=== PATIENT | male | born 1980 | race Caucasian/White ===

== ENCOUNTER 2018-08-04 09:22 | Emergency (ER) | payer BC, SELFPAY ==
[2018-08-04 09:23] VITALS: BP 144/93; PULSE 90; RESP 16; TEMP 36.6; O2SAT 98; BMI 21.9
--- NOTE | 2018-08-04 09:41 | ED.DCSUM_ITS ---
History of Present Illness Chief Complaint: Dizziness Informant: Patient Onset: Month(s) - 1+ Context: Sudden Onset - w/ position changes Timing: Intermittent Quality: spinning, off-balance Location: head Current Severity: Mild Maximum Severity: Moderate Worsened by: getting out of bed. turning head. Relieved by: remaining still. Associated Symptoms: uri sx off and on 1-2 mos Narrative: States he goes to the counseling center but has no other doctor. They used to prescribe him medication for ADHD and anxiety but he states they stopped about a month and a half ago. He now takes no medications. He is here for the dizziness, he went over to the [facility] where he does not have a PCP so they directed him to the emergency department for his symptoms today. He has had no head injuries. He denies any numbness or tingling in his extremities. Symptoms are worse in the mornings when he gets out of bed. He does not seem to have the dizziness until he stands up. His nausea and vomiting are always associated with the dizziness. - Past Medical History (1) ADHD Status: Chronic (2) Anxiety Status: Chronic Past Medical History - Allergies and Home Meds Allergies/Adverse Reactions: Allergies No Known Allergies Allergy (Verified 08/04/18 09:22) Primary Care Physician: Care Physician,No Primary [Primary Care Provider] - Smoking Status: Current every day smoker Review of Systems General: Denies: Chills, Fever, Sweats Eyes: Denies: Visual changes - bilaterally, Diplopia ENT: Reports: Left ear pain - vibration-feeling, not pain/earache, Rhinorrhea, - - teeth hurt. Denies: Right ear pain, Sore throat Cardiovascular: Denies: Chest pain, Palpitations Respiratory: Reports: Cough. Denies: Dyspnea, Sputum Gastrointestinal: Reports: Nausea, Vomiting, Diarrhea. Denies: Abdominal pain, Melena, Hematochezia Genitourinary: Denies: Dysuria, Hematuria, Frequency Musculoskeletal: Denies: Back pain, Extremity Pain Skin: Denies: Rash, Wounds Neurological: Reports: - - dizzy/vertigo. Denies: Headache, Weakness, Parasthesia Physical Exam Vital Signs/Narrative: Vital Signs Temp Pulse Resp BP Pulse Ox 08/04/18 09:23 98 F 90 16 144/93 H 98 Inital Vital Signs reviewed: Yes General: Well nourished, Well developed, No Acute Distress Head: Normocephalic, Atraumatic Eyes: Perrl, EOMI ENT: Moist mucous membranes, No rhinorrhea, - - TM's occluded by cerumen bilat. no discharge. no pain w/ pinna/tragus manipulation bilat. Neck: Supple, Nontender Cardiovascular: Regular rate, Regular rhythm, No murmurs Respiratory: No distress, CTA bilaterally, Chest nontender Abdomen: Soft, Nontender, Nondistended, Normal bowel sounds Extremities: Nontender, No edema Skin: Normal color, No rash, No Trauma Neurological: Alert, Oriented x3, Cranial nerves II-XII grossly intact, Normal Strength, Normal Sensation, Normal Gait, - - Normal FTN and HTS bilat. Normal Romberg. Psychological: Normal affect, Normal Mood Diagnostic/Tx/Re-eval - Medical Decision Making Consistent with peripheral vertigo, with his recent URI symptoms off and on, it may be a reactive acoustic neuronitis, or he may have BPPV. Supportive care advised for now and primary care/ENT follow-up. We will give him meclizine and a prescription, we discussed making slow deliberate position changes, keeping his eyes open, looking at stationary targets when symptomatic. He is comfortable with this plan. ED Disposition - Plan for ED Patient: Disposition: Home or Assisted Living Diagnosis: Other peripheral vertigo, unspecified ear, Impacted cerumen of both ears Instructions: ED Vertigo Unspecified, ED Cerumen Impaction, Home Care Prescriptions: Meclizine HCl 25 mg PO Q8H PRN #16 tablet PRN Reason: Vertigo Referrals: Carlos Avitia MD [STAFF PHYSICIAN] - Ronald Mccoy MD [STAFF PHYSICIAN] - 1 Week if not improving
[2018-08-04] MEDS: Meclizine HCl 25 MG Tablet PO (09:59)
== END 2018-08-04 10:00 | disposition home or self-care (01) ==
LOC: ED 09:51
PROVIDERS: Emergency Provider Emergency Medicine
DX: H81.399 Other peripheral vertigo, unspecified ear (principal); H61.23 Impacted cerumen, bilateral; F17.200 Nicotine dependence, unspecified, uncomplicated; F41.9 Anxiety disorder, unspecified; F90.9 Attention-deficit hyperactivity disorder, unspecified type
CPT/HCPCS: 99283

== ENCOUNTER → 2022-11-03 | Outpatient (CLI) | payer BC, SELFPAY ==
[2022-11-03 08:09] LABS: Absolute Lymphocyte Count 2.43 X10^3/uL (0.83-4.51); Absolute Neutrophil Count 5.8 X10^3/uL (2.0-7.7); Basophil# 0.07 X10^3/uL; Basophil% 0.7 % (0-1); Eosinophil# 0.17 X10^3/uL; Eosinophils% 1.8 % (0-5); Hematocrit 48.2 % (40-54); Hemoglobin 15.6 g/dL (13.0-16.5); Lymphocyte # 2.43 X10^3/ul (0.83-4.51); Lymphocyte % 25.7 % (19-41); Mean Corp Hgb Conc 32.4 g/dL (32-36); Mean Corpuscular Hgb 31.9 pg (27.0-32.0); Mean Corpuscular Volume 98.6 fL (80-94); Mean Platelet Vol. 9.9 fl (6.2-12.0); Monocyte# 0.99 X10^3/uL; Monocyte% 10.5 % (0-10); NRBC Flagged by Analyzer 0 % (0-5); Neutrophil # 5.77 X10^3/uL (2.7-7.7); Platelet Count 310 K/mm3 (150-450); RBC Distribution Width CV 12.4 % (11.6-14.6); RBC Distribution Width SD 45.1 fl (35.1-43.9); Red Blood Count 4.89 M/mm3 (4.6-6.2); White Blood Count 9.5 K/mm3 (4.4-11.0)
[2022-11-03 08:41] LABS: ALB/GLOB Ratio 0.9 RATIO (0.9-2.4); AST(SGOT) 22 U/L (15-37); Alanine Aminotransfer ALT/SGPT 37 U/L (16-61); Albumin, Serum 3.7 g/dL (3.2-5.0); Alkaline Phosphatase 65 U/L (45-117); Anion Gap 4 (5-15); BUN 14 mg/dL (7-18); BUN/Creat Ratio 14.3 RATIO (10-20); Calcium,Total 9.3 mg/dL (8.5-10.1); Chloride 105 mmol/L (98-107); Cholesterol 257 mg/dL (200); Creatinine, Serum 0.98 mg/dL (0.70-1.30); EST Glomerular Filtration Rate 89 mL/min (>60); Est Glom Filt Rate - Afr Amer 107 mL/min (>60); Globulin 3.9 g/dL (2.2-4.2); Glucose 104 mg/dL (74-106); High Density Lipoprotein 59 mg/dL; Potassium 4.8 mmol/L (3.5-5.1); Protein, Total 7.6 g/dL (6.4-8.2); Sodium Level 137 mmol/L (136-145); Thyroid Stim Hormone (TSH) 2.25 uIU/mL (0.358-3.74); Triglycerides 177 mg/dL; Very Low Density Lipoprotein 35 mg/dL (5-40)
[2022-11-05 15:08] LABS: Endomysial Antibody IgA Negative (Negative); Immunoglobulin A 283 mg/dL (90-386); t-Transglutaminase IgA <2 U/mL (0-3)
== END | disposition home or self-care (01) ==
LOC: LAB 07:40
PROVIDERS: PCP Internal Medicine; Referring Provider Internal Medicine; Visit Provider Internal Medicine
DX: R10.9 Unspecified abdominal pain (principal); F32.1 Major depressive disorder, single episode, moderate; K43.9 Ventral hernia without obstruction or gangrene; F41.9 Anxiety disorder, unspecified; G89.29 Other chronic pain; Z13.6 Encounter for screening for cardiovascular disorders
CPT/HCPCS: 36415; 80050; 80053; 80061; 82306; 82784; 83516; 84443; 85025; 86255

== ENCOUNTER → 2023-02-16 | Outpatient (CLI) | payer BC, SELFPAY ==
[2023-02-16 09:04] LABS: ALB/GLOB Ratio 1.1 RATIO (0.9-2.4); AST(SGOT) 23 U/L (15-37); Alanine Aminotransfer ALT/SGPT 43 U/L (16-61); Albumin, Serum 3.8 g/dL (3.2-5.0); Alkaline Phosphatase 70 U/L (45-117); Anion Gap 4 (5-15); BUN 11 mg/dL (7-18); BUN/Creat Ratio 12.2 RATIO (10-20); Calcium,Total 9.3 mg/dL (8.5-10.1); Chloride 106 mmol/L (98-107); Cholesterol 159 mg/dL (200); EST Glomerular Filtration Rate 97 mL/min (>60); Est Glom Filt Rate - Afr Amer 118 mL/min (>60); Globulin 3.4 g/dL (2.2-4.2); Glucose 105 mg/dL (74-106); High Density Lipoprotein 58 mg/dL; Potassium 4.6 mmol/L (3.5-5.1); Protein, Total 7.2 g/dL (6.4-8.2); Sodium Level 139 mmol/L (136-145); Triglycerides 100 mg/dL; Very Low Density Lipoprotein 20 mg/dL (5-40)
== END | disposition home or self-care (01) ==
LOC: LAB 07:44
PROVIDERS: PCP Internal Medicine; Visit Provider Internal Medicine
DX: I10 Essential (primary) hypertension (principal); E78.2 Mixed hyperlipidemia
CPT/HCPCS: 36415; 80053; 80061

== ENCOUNTER → 2023-08-21 | Outpatient (CLI) | payer BC, SELFPAY ==
[2023-08-21 12:13] LABS: Absolute Lymphocyte Count 1.96 X10^3/uL (0.83-4.51); Absolute Neutrophil Count 5.5 X10^3/uL (2.0-7.7); Basophil# 0.05 X10^3/uL; Basophil% 0.6 % (0-1); Eosinophil# 0.04 X10^3/uL; Eosinophils% 0.5 % (0-5); Hematocrit 42.9 % (40-54); Lymphocyte # 1.96 X10^3/ul (0.83-4.51); Lymphocyte % 23.6 % (19-41); Mean Corp Hgb Conc 32.6 g/dL (32-36); Mean Corpuscular Hgb 31.8 pg (27.0-32.0); Mean Corpuscular Volume 97.5 fL (80-94); Mean Platelet Vol. 10.4 fl (6.2-12.0); Monocyte# 0.74 X10^3/uL; Monocyte% 8.9 % (0-10); NRBC Flagged by Analyzer 0 % (0-5); Neutrophil # 5.48 X10^3/uL (2.7-7.7); Neutrophil % 66.2 % (47-70); Platelet Count 322 K/mm3 (150-450); RBC Distribution Width CV 12.6 % (11.6-14.6); White Blood Count 8.3 K/mm3 (4.4-11.0)
[2023-08-21 12:31] LABS: Vitamin D,25 Hydroxy 31.6 ng/mL
[2023-08-21 12:48] LABS: AST(SGOT) 23 U/L (15-37); Alanine Aminotransfer ALT/SGPT 34 U/L (16-61); Albumin, Serum 3.9 g/dL (3.2-5.0); Alkaline Phosphatase 67 U/L (45-117); Anion Gap 4 (5-15); BUN 12 mg/dL (7-18); BUN/Creat Ratio 12.4 RATIO (10-20); Calcium,Total 9.1 mg/dL (8.5-10.1); Chloride 107 mmol/L (98-107); Cholesterol 213 mg/dL (200); Creatinine, Serum 0.97 mg/dL (0.70-1.30); EST Glomerular Filtration Rate 90 mL/min (>60); Est Glom Filt Rate - Afr Amer 109 mL/min (>60); Globulin 3.8 g/dL (2.2-4.2); Glucose 95 mg/dL (74-106); High Density Lipoprotein 63 mg/dL; Potassium 4.2 mmol/L (3.5-5.1); Protein, Total 7.7 g/dL (6.4-8.2); Sodium Level 138 mmol/L (136-145); Thyroid Stim Hormone (TSH) 1.73 uIU/mL (0.358-3.74); Triglycerides 138 mg/dL; Very Low Density Lipoprotein 28 mg/dL (5-40)
== END | disposition home or self-care (01) ==
LOC: BIMLAB 08:47
PROVIDERS: PCP Internal Medicine; Referring Provider Internal Medicine; Visit Provider Internal Medicine
DX: F41.9 Anxiety disorder, unspecified (principal); F32.1 Major depressive disorder, single episode, moderate; R00.2 Palpitations; E78.2 Mixed hyperlipidemia
CPT/HCPCS: 36415; 80053; 80061; 82306; 84443; 85025

== ENCOUNTER 2023-11-01 06:22 | Day surgery (SDC) | payer BC, SELFPAY ==
--- NOTE | 2023-11-01 | GASB_PTH ---
PATIENT: ELIZABETH RACHEL LOC: EN U#:[id number] AGE/SX: 43/M ROOM: RE11/01/[address]: Dr. Ant Erwin MD : 1980 BED: DIS: 11/01/2023 SPEC #: [id number] RECD: 11/01/23 14:07 STATUS: MARILU GENE #: [id number] LENNIE: 11/01/23 00:[address]: Ant Erwin DEPT: SURGICAL PATHOLOGY RECD BY: Sebas Green ENTERED: 11/04/23 09:02 SP TYPE: Gastric Bx OTHR DR: Dr. Shana Rios MD Tissues: A - Gastric mucous membrane B - Duodenum, NOS C - Gastric fundus D - Gastric mucous membrane E - Esophageal mucous membrane F - Ascending colon G - Ascending colon H - Transverse colon I - Descending colon J - Sigmoid colon biopsy K - Rectum, NOS L - Sigmoid colon biopsy Procedures: Special Stain Group I Surgery Specimen Level IV Alcian Blue/PAS (control) HEADER OPERATION: Colonoscopy, EGD biopsy PRE-OP DIAGNOSIS: GERD, nausea/vomiting, chronic abdominal pain, diarrhea TISSUE SUBMITTED: A- Gastric antrum, B-Duodenal bulb biopsy, C- Fundal mucosal biopsy, D- Gastroesophageal junction biopsy, E- Mid esophageal plaque biopsy, F- Ascending colon polyp biopsy, G- Ascending colon mucosal biopsy, H- Transverse colon mucosa biopsy, I- Descending colon mucosal biopsy, J- Sigmoid colon mucosa biopsy, K- Rectal mucosal biopsy, L- Sigmoid colon polyp biopsy MICROSCOPIC DIAGNOSIS A. Gastric antrum, biopsy: Mild gastritis. See microscopic description and comment. B. Duodenal bulb, biopsy: Superficial fragments of duodenal mucosa with focal gastric metaplasia. C. Fundal mucosa, biopsy: Minimal gastritis. See microscopic description. D. Gastroesophageal junction, biopsy: A fragment of gastroesophageal mucosa with extensive intestinal metaplasia (goblet cell metaplasia), consistent with Brothers's esophagus. Chronic inflammation. Negative for dysplasia. See comment. E. Mid esophageal plaque, biopsy: Fragments of benign squamous epithelium. F. Ascending colon polyp, biopsy: A fragment of colonic mucosa, no pathologic diagnosis. G. Ascending colon mucosa, biopsy: Fragments of colonic mucosa, no pathologic diagnosis. I. Descending colon mucosa, biopsy: A fragment of colonic mucosa, no pathologic diagnosis. J. Sigmoid colon mucosa, biopsy: A fragment of colonic mucosa, no pathologic diagnosis. K. Rectal mucosa, biopsy: Fragments of colonic mucosa, no pathologic diagnosis. L. Sigmoid colon polyp, biopsy: Fragments of hyperplastic polyp. SJ/mr 11/05/2023 COMMENT A. The results of immunohistochemistry for Helicobacter pylori will be reported separately ([id number]). D. Alcian blue/PAS stain with matched control is used in the evaluation of the specimen. Immunohistochemistry ([id number]) for P53 and Ki-67 will be performed and results will be reported separately. MICROSCOPIC DESCRIPTION Slides are reviewed. A. The specimen shows fragments of gastric mucosa with chronic inflammatory cell infiltrates in the lamina propria consisting of lymphocytes and plasma cells, consistent with mild chronic gastritis. C. The specimen shows fragments of gastric mucosa with chronic inflammatory cell infiltrates in the lamina propria consisting of lymphocytes and plasma cells, consistent with minimal chronic gastritis. GROSS DESCRIPTION A. Received in fixative is one container labeled with the patient's name and designated Gastric antrum biopsy. The specimen consists of two irregular fragments of light muir soft tissue that in aggregate measure 0.6 x 0.2 x 0.1 cm. The specimen is totally submitted in one cassette. B. Received in fixative is one container labeled with the patient's name and designated Duodenal bulb biopsy. The specimen consists of multiple irregular fragments of light muir soft tissue that in aggregate measure 0.3 x 0.2 x 0.1 cm. The specimen is totally submitted in one cassette. C. Received in fixative is one container labeled with the patient's name and designated Fundal mucosa biopsy. The specimen consists of multiple irregular fragments of light muir soft tissue that in aggregate measure 1.2 x 0.3 x 0.1 cm. The specimen is totally submitted in one cassette. D. Received in fixative is one container labeled with the patient's name and designated GE junction biopsy. The specimen consists of one irregular fragment of light muir soft tissue that measures 0.3 x 0.3 x 0.1 cm. The specimen is totally submitted in one cassette. E. Received in fixative is one container labeled with the patient's name and designated Mid esophageal plaque biopsy. The specimen consists of two irregular fragments of light muir soft tissue that measuring in aggregate 0.5 x 0.3 x 0.1 cm. The specimen is totally submitted in one cassette. F. Received in fixative is one container labeled with the patient's name and designated Ascending colon polyp biopsy. The specimen consists of one irregular fragment of light muir soft tissue that measures 0.4 x 0.2 x 0.1 cm. The specimen is totally submitted in one cassette. G. Received in fixative is one container labeled with the patient's name and designated Ascending colon mucosa biopsy. The specimen consists of two irregular fragments of light muir soft tissue that measuring in aggregate 0.8 x 0.2 x 0.1 cm. The specimen is totally submitted in one cassette. H. Received in fixative is one container labeled with the patient's name and designated Transverse colon mucosal biopsy. The specimen consists of one irregular fragment of light muir soft tissue that measures 1.0 x 0.2 x 0.1 cm. The specimen is totally submitted in one cassette. I. Received in fixative is one container labeled with the patient's name and designated Descending colon mucosa biopsy. The specimen consists of one irregular fragment of light muir soft tissue that measures 0.6 x 0.2 x 0.1 cm. The specimen is totally submitted in one cassette. J. Received in fixative is one container labeled with the patient's name and designated Sigmoid colon mucosa biopsy. The specimen consists of one irregular fragment of light muir soft tissue that measures 0.4 x 0.2 x 0.1 cm. The specimen is totally submitted in one cassette. K. Received in fixative is one container labeled with the patient's name and designated Rectal mucosa biopsy. The specimen consists of two irregular fragments of light muir soft tissue that in aggregate measure 0.6 x 0.3 x 0.1 cm. The specimen is totally submitted in one cassette. L. Received in fixative is one container labeled with the patient's name and designated Sigmoid colon polyp biopsy. The specimen consists of multiple irregular fragments of light muir soft tissue that in aggregate measure 0.6 x 0.2 x 0.1 cm. The specimen is totally submitted in one cassette. SJ/mr 11/04/2023 TC:3 CPT:29477f79,17905
--- NOTE | 2023-11-01 06:50 | PRE.ANES_ITS ---
ASA Classification* ASA Classification ASA Classification: 2 Assessment & Plan Anesthesia* Anesthesia Assessment Anesthesia Assessment: Discussed sedation and/or anesthesia options, risks, benefits, and alternatives with patient/parents/legal guardian/POA. Questions invited. The patient/parents/legal guardian/POA seems to understand and agrees to proceed with anesthesia plan. Reviewed the physical assessment, medical history, allergy history and patient home medications list prior to surgery/procedure/anesthetic and documented any changes. Performed airway and anesthesia risk assessments. Anesthesia Type Anesthesia Type: MAC Pre-Assessment Diagnosis/Proposed Procedure Planned Operative Procedure(s): EGD/CSCOPE Anesthesia History Anesthesia History - sales associate: Anesthesia History - sales associate Hx Hospitalization No 10/28/23 11:07 Any Problems With Anesthesia No 10/28/23 11:07 Cholinesterase deficiency No 10/28/23 11:07 You/Your Family Experience No 10/28/23 11:07 fever (hyperthermia) with Relationship Recent Exposure to Contagious Disease Does patient have nerve No 10/28/23 11:07 stimulator Patient instructed to have device shut off --Does patient have Pacemaker or ICD? When Was Last Pacemaker Check QUESTION #4 FULL TEXT: You/Your Family Experience fever (hyperthermia) with Anesthesia Last Oral Intake Last Oral intake: Last Oral Intake NPO since Meds taken in AM with sips of water? Meds patient instructed to take am of surgery PONV PONV - sales associate: PONV - sales associate Female No 10/28/23 11:07 HX of Motion Sickness Yes 10/28/23 11:07 HX of N/V After Surgery No 10/28/23 11:07 Non-Smoker Yes 10/28/23 11:07 Duration of Surgery greater No 10/28/23 11:07 than 60 minutes Number of Risk Factors 2 10/28/23 11:07 PONV Score Moderate Risk 10/28/23 11:07 Height & Weight Height & Weight: Anesthesia: Height & Weight Height 6 ft 10/30/23 14:50 Respiratory Assessment Respiratory Assessment - sales associate: Respiratory Tract Infection Hx - sales associate Hx Respiratory Tract Infection No 10/28/23 11:07 STOP Sleep Apnea STOP Sleep Apnea - sales associate: STOP Sleep Apnea - sales associate Hx Hypertension No 10/28/23 11:07 Hx Sleep Apnea No 10/28/23 11:07 CPAP No 10/28/23 11:07 BIPAP Do you snore loudly (louder Yes 10/28/23 11:07 than talking or can be heard Do you often feel tired/ Yes 10/28/23 11:07 fatigued/ sleepy during daytime? Has anyone observed you stop Yes 10/28/23 11:07 breathing during sleep? STOP Results Positive 10/28/23 11:07 QUESTION #5 FULL TEXT : Do you snore loudly (louder than talking or can be heard through closed doors)? 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 Specify any problems Hx of Preganancy in last 3 N/A 10/28/23 11:07 Months Nurse Filling Out Transfusion DSCHRIBER 10/28/23 11:07 & Questions: Date: 10/28/23 10/28/23 11:07 Time: 11:09 10/28/23 11:07 Patient unable to answer at this time (ie. confused, unrespo /Reproduction History /Reproductive History - sales associate: /Reproductive Hx- sales associate Hx Now No 10/28/23 11:07 Gestational Age (in weeks): EDC: Hx Hx Para Hx Section SAB No 10/28/23 11:07 Active Medications Active Medications: Current Medications Generic Name Dose Route Start Last Admin Trade Name Freq PRN Reason Stop Dose Admin Lactated Ringer's 1,000 mls @ 15 mls/hr 11/01/23 06:45 IV .Q48H BRENDA Anesthesia Focused Assessment* Airway Assessment Mouth opens: >3 cm Mallampati Score: II Focused Labs Anesthesia Preop lab: CBC WBC 8.3 K/mm3 (4.4-11.0) 08/21/23 08:47 RBC 4.40 M/mm3 (4.6-6.2) L 08/21/23 08:47 Hgb 14.0 g/dL (13.0-16.5) 08/21/23 08:47 Hct 42.9 % (40-54) 08/21/23 08:47 Plt Count 322 K/mm3 (150-450) 08/21/23 08:47 CHEMISTRY Potassium 4.2 mmol/L (3.5-5.1) 08/21/23 08:47 Sodium 138 mmol/L (136-145) 08/21/23 08:47 BUN 12 mg/dL (7-18) 08/21/23 08:47 Creatinine 0.97 mg/dL (0.70-1.30) 08/21/23 08:47 Glucose 95 mg/dL (74-106) 08/21/23 08:47 TSH 1.73 uIU/mL (0.358-3.74) 08/21/23 08:47 COAG Review of Systems (Anesthesia) ROS Narrative System reviewed and no additional complaints, except as documented. [facility] Medical History Anxiety Marijuana use Dietary restriction History of ulceration Gastric reflux Former smoker History of pain when walking Chest pain Alcohol dependence with unspecified alcohol-induced disorder Intermittent palpitations Abnormal Holter monitor finding Depression Abdominal pain Ventral hernia GERD (gastroesophageal reflux disease) Mixed hyperlipidemia Essential hypertension Anxiety ADHD Home Medications ?Medication ?Instructions ?Recorded ?Last Taken ?Type FLAX SEED 1,000 mg PO QHS 11/12/22 Unknown History coenzyme [id number] E 100 mg-100 1 cap PO DAILY 09/23/23 Unknown History unit capsule omega-3s 360 ti-bgz-wwz-fish oil 1 cap PO QHS 09/23/23 Unknown History 1,200 mg-D3 1,000 unit capsule (Fish Oil-Vit D3) aripiprazole 2 mg tablet 2 mg PO QHS #90 tabs 10/22/23 Unknown Rx esomeprazole magnesium 40 mg 40 mg PO QHS 10/28/23 Unknown History capsule,delayed release metoprolol succinate 50 mg 50 mg PO DAILY #90 tabs 10/30/23 Unknown Rx tablet,extended release 24 hr (Toprol XL) Allergy/AdvReac Type Severity Reaction Status Date / Time No Known Allergies Allergy Verified 11/01/23 06:48 Family History Father Alcoholism Heart disease Hypertension Grandfather Heart disease Hypertension Grandmother Alzheimer disease Mother Kidney disease Surgical History Hx of colonoscopy H/O vasectomy H/O lateral meniscus repair of right knee Social History household members: spouse current occupational status: employed 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
[2023-11-01 06:52] VITALS: BP 133/72; PULSE 82; RESP 16; TEMP 36.7; O2SAT 100; BMI 21.2
[2023-11-01] MEDS: Lactated Ringers 1,000 ML 15 ML IV (07:03)
--- NOTE | 2023-11-01 07:24 | HP.PCM_ITS ---
History and Physical Date of Admission: 11/01/23 Date of Service: 09/05/23 MR#: [id number] Acct: [id number] Name: ELIZABETH RODAS Rep #: [id number] : 1980 Provider: Dr. Ant Erwin MD Age/Sex: 43/M Location: [facility] Status: Signed Intake Vital Signs 08/21/2407:03 09/04/2413:36 Height 6 ft 6 ft Weight: 166 lb 6 oz 168 lb BMI 22.5 22.8 BP 140/86 H 161/100 H Blood Pressure Location Lt brachial Rt brachial Position Sitting Sitting Respiration 16 18 Pulse 86 84 Pulse Source Monitor Monitor Temp 97.2 F L Temp Source Temporal Pulse Oximetry (%) 99 99 Oxygen Delivery Method room air room air Intake Visit Reasons: HERNIA, ABDOMINAL PAIN Chief Complaint: Ventral Hernia/Abdominal pain/GERD License Clerk Required: No Is patient in pain?: No Allergies No Known Allergies Allergy (Verified 09/05/23 14:37) Medications FLAX SEED PO DAILY 11/12/22 [History Confirmed 09/05/23] coenzyme [id number] E 100 mg-100 unit capsule cap PO 11/12/22 [History Confirmed 09/05/23] omega-3s 360 ad-rzl-iut-fish oil 1,200 mg-D3 1,000 unit capsule (Fish Oil-Vit D3) cap PO 11/12/22 [History Confirmed 09/05/23] esomeprazole magnesium 40 mg capsule,delayed release 40 mg PO DAILY #30 caps 08/26/23 [Rx Confirmed 09/05/23] PFSH Medical History (Updated 09/05/23 @ 16:[address] 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 This finding was first noticed by patient a year ago and confirmed, reportedly, on CT imaging obtained through the [facility]. Patient states that he was scheduled for surgery but then backed out on the account of his nerves. He is referred today from Dr. Rios. Patient is not able to recall how this occurred exactly but suspects that it is related to his habitual vomiting before work. He shares that most mornings he gets up he vomits a frothy/snotty white mix which he believes is precipitated by brushing his teeth. Alongside of this complaint he does still have frequent nausea and reflux. He states that the reflux has been more problematic recently. He notes that it is worse with stress and sometimes gets agitated at work and then will eat poorly (gives example of [place] food). He confirms that he otherwise tries to limit spicy or greasy foods. He has cut his caffeine intake back to just taking 1 cup of coffee daily. He tries to do dinner at 5:30-6 o'clock in the evenings and then retires to bed between 8 and 9 in the evening. He also confirms that he sleeps with his head propped up. He on the above he describes chronic fatigue that is always been present. He also shares that he has a history of sleep apnea that was diagnosed via sleep study but he was unable to tolerate a CPAP mask. His confirms that she still perceives him stopping breathing at night. Mr. Rodas repeatedly makes reference to the fact that he is looking to deal with his alcohol use. He confesses to drinking between 4 and 5 beers per night. He states that he is due to visit with psych this coming Saturday about his anxiety. Mr. Rodas has a history of chronic diarrhea and shares that this is the pattern of his bowel movements most of the time. He goes on to state that I can poop on command and describes frequency of bowel movements ranging from 2-4 times daily. He denies noting any blood or straining. There is no family history of colon cancer, diverticulitis, inflammatory bowel disease. Given the above complaints of reflux he was started on Nexium but just started earlier this week and he shares that he has not noticed a difference yet. Mr. Dorman has a history of a remote EGD done 15 to 17 years ago. He states this was a traumatic experience due to a very bad gag reflex. He also shares that that scope was found him to have some ulcer disease. ROS General General: Yes fatigue; No weight change, appetite, colon cancer, breast cancer or weakness HEENT HEENT: No difficulty swallowing, eye injury, eye surgery, swollen glands or hoarseness Endo Endocrine: No thyroid disease, diabetes mellitus, thyroid cancer, Hair loss, heat intolerance or cold intolerance Skin Skin: No rash or changing moles Breast Breast: No left breast lump, right breast lump, nipple discharge, breast pain, abnormal mammogram, abnormal US or breast enlargement Musc Musculoskeletal: No back problems, arthritis, rheumatoid arthritis, gout or joint pain Cardio Cardiovascular: No murmur, pacemaker, heart disease, atrial fibrillation, high blood pressure, heart attack, heart stent, palpitations, shortness of breat with exertion or chest pain Psych Psychiatric: Yes depression and anxiety; No hearing voices Resp Respiratory: No shortness of breath, Yes sleep apnea, No cough, No COPD, No asthma, No emphysema and No wheezing Gastro Gastrointestinal: Yes abdominal pain, Yes nausea or vomiting, Yes diarrhea, No constipation, No blood in stool, Yes acid reflux, No hemorrhoids, No ulcers, No gallbladder problem and No black,tarry stools Ambrocio Hematologic: No blood thinners, No blood disorders, No bleeding, No anemia and No blood clots Neuro Neurologic: No system reviewed and no additional complaints, except as documented, No as per HPI, No abnormal gait, No abnormal hearing, No abnormal movements, No abnormal speech, No behavioral changes, No burning sensations, No confusion, No convulsions, No disequilibrium, No dizziness, No localized weakness, No frequent falls, No headache(s), No lack of coordination, No loss of vision, No memory loss, No numbness, No other visual disturbances, No radicular pain, No restless legs, No sensory deficit, No syncope, No tingling, No tremor(s), No weakness and No other Exam Const General: cooperative and anxious (Severe anxiety) Orientation: alert, awake and oriented x3 Resp Effort & Inspection: normal respiratory effort GI Other: Nondistended, soft, mildly tender to palpation across the epigastrium. There also appears to be a tuft of fat coming through a hernia defect at the umbilicus. This is exquisitely tender to palpation and is not easily reduced with traction Assessment and Plan Assessment and Plan (1) GERD (gastroesophageal reflux disease): Status: Acute Comment: Patient is a 43-year-old male with a history of reflux that has been recently more symptomatic. He just this week was started on PPI medication, but has had chronic epigastric discomfort. He is uncertain whether the new medication is having his desired effect as yet. Given his descriptions of his current symptoms as well as his history of ulcer disease I find it reasonable to offer him an EGD. I have encouraged him to continue use of his PPI medication in the interim. Plan: ? Plan for EGD with biopsy for H. pylori as well examination for any ulcer disease or hiatal hernia (2) Nausea and vomiting: Status: Acute Comment: Patient with chronic nausea and vomiting which she states is likely the cause for his umbilical hernia. No causes ever been given. However, patient's description is suggestive for possible postnasal drip. As discussed above we will plan for EGD with H. pylori testing Plan: EGD as above (3) Diarrhea: Status: Chronic Comment: Patient describes frequent loose stools that have been present for years. This could be simply secondary to his anxious disposition, however, patient has never undergone colonoscopic evaluation. Given that he has this bowel movement irregularity and is approaching the age of screening for colon cancer anyhow I have recommended that we proceed with colonoscopy. I would like to evaluate him with random colonic biopsies for underlying colitis. Plan: ? Diagnostic colonoscopy with random colonic biopsies. Patient made aware that he will require a 2-day bowel prep for the procedure as well as a equipment driver the day of the procedure. (4) Chronic abdominal pain: Plan: Patient describes both left upper quadrant abdominal discomfort as well as periumbilical abdominal discomfort. Patient's description of the left upper q uadrant abdominal pain is vague and hard to direct a workup. However, his periumbilical discomfort seems related to his umbilical hernia defect. (See below) (5) Umbilical hernia without obstruction and without gangrene: Status: Chronic Comment: Patient describes the presence of a umbilical hernia for at least the last 1 year. He previously met with surgery and was due to undergo a repair, but backed out at last minute due to nerves. It is not apparent that this hernia has grown in either size or symptoms in the last 1 year. On exam I believe I feel a small tuft of chronically incarcerated fat at the umbilicus. I would like to examine patient's original imaging from the outside facility. Yet, given his unmanaged sleep apnea and alcoholism I would be concerned about his wellbeing postoperatively. Therefore, I have prioritized the above endoscopy exams as we hopefully optimized these latter issues for a tentative future surgery. Plan: ? Seek outpatient CT pictures ? Referral to pulm for history of sleep apnea ? Continue to encourage patient to take control of alcohol consumption I have examined the patient the following changes are noted: Patient reports that he has met with cardiology and they are continuing ongoing workup of some dysrhythmias but he does, optimistically, reports that he has been alcohol free for the past 3 weeks. He denies any symptoms of delirium tremens. He shares that he overall feels better. His GI habits remain the same. He does report that he had some discomfort from his umbilical hernia through his bowel prep but that seems to be spontaneously improved now. He confirms that his prep was successful and his output is now clear. Will plan to proceed to the endoscopy suite for upper and lower endoscopy as indicated above.
--- NOTE | 2023-11-01 07:30 | IMM_PTH ---
PATIENT: ELIZABETH RACHEL LOC: EN U#:[id number] AGE/SX: 43/M ROOM: RE11/01/[address]: Dr. Ant Erwin MD : 1980 BED: DIS: 11/01/2023 SPEC #: [id number] RECD: 11/04/23 08:14 STATUS: MARILU REQ #: [id number] LENNIE: 11/01/23 07:[address]: Ant Erwin DEPT: IMMUNOHISTOCHEMISTRY RECD BY: Jb Henderson ENTERED: 11/04/23 08:15 SP TYPE: IMMUNO OTHR DR: Dr. Shana Rios MD Tissues: A - Gastric mucous membrane d - Gastric mucous membrane Procedures: H Pylori (initial) P53 (initial) KI-67 (add) PHYSICIAN & INSTITUTION [place] [id number] SPECIMEN INFORMATION: Tissue Source: A- Gastric antrum biopsy, D- Gastroesophageal junction biopsy Clinical Info: GERD, nausea/vomiting, chronic abdominal pain, diarrhea Specimen Number: [id number] A & D CPT code: [id number] METHODOLOGY: Deparaffinized sections of prefer/formalin-fixed tissue or PAP/DQ stained slides are incubated with monoclonal/polyclonal antibodies/oligonucleotide probes. Localization is made via biotin free immunoperoxidase method. Appropriate controls are performed and reacted as expected. Results on target cell population are indicated in the following table: RESULTS: ANTIBODY / CLONE RESULT Block A H Pylori (polyclonal) negative Block D P53 (DO-7) negative, null pattern Ki-67 (30-9) positive, very low These tests were developed and their performance characteristics determined by [facility]. They may not have been cleared or approved by the U.S. Food and Drug Administration. The FDA has determined that such clearance or approval is not necessary. The above immunohistochemical/dualISH markers are ordered and reviewed by the Pathologist. INTERPRETATION: A. Gastric antrum, biopsy: Negative for Helicobacter pylori organisms. D. Gastroesophageal junction, biopsy: Negative for dysplasia. ASHWIN/ 11/06/2023
--- NOTE | 2023-11-01 08:58 | PCM.POST.ANE ---
Anesthesia: Postop Eval I Current Vital Signs Temperature: 97 F Pulse Rate: 84 Blood Pressure: 115/78 Respiratory Rate: 18 Pulse Ox: 99 Oxygen Delivery Method: Room Air Assessment Airway patent: Yes Spontaneous unlabored respirations: Yes Mental status: Awake and Calm nausea: No Vomiting: No Anesthesia Complication: No Fluid Hydration Crystalloid volume administer (ml): 1,400 Total IV fluid infused: 1,400 Progress Note Anesthesia document: Postop Eval 1 completed: Yes
--- NOTE | 2023-11-01 09:00 | OP.CCLET_ITS ---
11/01/2023 Shana Rios Md Re : Upper GI endoscopy procedure for Kyree Rodas Dear Gabriel This procedure was performed on Wednesday, November 01, 2023. My impressions and recommendations are as follows: Impressions : - No gross lesions in the first portion of the duodenum and in the second portion of the duodenum. No specimens collected. - Nodular mucosa in the duodenal bulb. Biopsied. - Erythematous mucosa in the stomach. - Erythematous mucosa in the antrum. Biopsied. - Nodular mucosa in the gastric fundus. Biopsied. - Z-line irregular, 43 cm from the incisors. Biopsied. - Small hiatal hernia. No specimens collected. - Multiple plaques in the middle third of the esophagus. Biopsied. Recommendations : - Discharge patient to home (via wheelchair). - Resume previous diet today. - Continue present medications. - No aspirin, ibuprofen, naproxen, or other non-steroidal anti-inflammatory drugs for 2 days after biopsy. - Await pathology results. - Telephone my office for pathology results in 1 week. My findings are described in the full procedure note, which is enclosed. If I can be of further assistance, please feel free to contact me at Doctor phone number(s): , Work: . Sincerely, Ant Erwin MD 11/01/2023 9:00:00 AM This report has been signed electronically.
--- NOTE | 2023-11-01 09:00 | OP.EGD_ITS ---
Patient Name: Kyree Rodas Procedure Date: 11/01/2023 7:44 AM Date of : 1980 Age: 43 Procedure: Upper GI endoscopy Indications: Esophageal reflux, Gastro-esophageal reflux disease Providers: Ant Erwin MD Medicines: See the Anesthesia note for documentation of the administered medications Patient Profile: Refer to note in patient chart for documentation of history and physical. Complications: No immediate complications. Estimated blood loss: Minimal. Procedure: Pre-Anesthesia Assessment: - The heart rate, respiratory rate, oxygen saturations, blood pressure, adequacy of pulmonary ventilation, and response to care were monitored throughout the procedure. After obtaining informed consent, the endoscope was passed under direct vision. Throughout the procedure, the patient's blood pressure, pulse, and oxygen saturations were monitored continuously. The Colonoscope was introduced through the mouth, and advanced to the second part of duodenum. The upper GI endoscopy was accomplished without difficulty. The patient tolerated the procedure well. Scope In: 7:51:16 AM Scope Out: 8:11:30 AM Total Procedure Duration Time 0 hours 20 minutes 14 seconds Findings: No gross lesions were noted in the first portion of the duodenum and in the second portion of the duodenum. No biopsies or other specimens were collected for this exam. Localized nodular mucosa was found in the duodenal bulb. Biopsies were taken with a cold forceps for histology. Estimated blood loss was minimal. Diffuse mildly erythematous mucosa without bleeding was found in the entire examined stomach. Diffuse moderately erythematous mucosa without bleeding was found in the gastric antrum. Biopsies were taken with a cold forceps for Helicobacter pylori testing. Estimated blood loss was minimal. Localized nodular mucosa was found in the gastric fundus. Biopsies were taken with a cold forceps for histology. Estimated blood loss was minimal. The Z-line was irregular and was found 43 cm from the incisors. Biopsies were taken with a cold forceps for histology. Estimated blood loss was minimal. A small hiatal hernia was present. No biopsies or other specimens were collected for this exam. Multiple 3 to 5 mm plaques were found in the middle third of the esophagus. Biopsies were taken with a cold forceps for histology. Estimated blood loss was minimal. Impression: - No gross lesions in the first portion of the duodenum and in the second portion of the duodenum. No specimens collected. - Nodular mucosa in the duodenal bulb. Biopsied. - Erythematous mucosa in the stomach. - Erythematous mucosa in the antrum. Biopsied. - Nodular mucosa in the gastric fundus. Biopsied. - Z-line irregular, 43 cm from the incisors. Biopsied. - Small hiatal hernia. No specimens collected. - Multiple plaques in the middle third of the esophagus. Biopsied. Recommendation: - Discharge patient to home (via wheelchair). - Resume previous diet today. - Continue present medications. - No aspirin, ibuprofen, naproxen, or other non-steroidal anti-inflammatory drugs for 2 days after biopsy. - Await pathology results. - Telephone my office for pathology results in 1 week. Procedure Code(s): --- Professional --- 04680, Esophagogastroduodenoscopy, flexible, transoral; with biopsy, single or multiple Diagnosis Code(s): --- Professional --- K31.89, Other diseases of stomach and duodenum K22.89, Other specified disease of esophagus K44.9, Diaphragmatic hernia without obstruction or gangrene K21.9, Gastro-esophageal reflux disease without esophagitis CPT copyright 2021 [employer]. All rights reserved. The codes documented in this report are preliminary and upon news writer review may be revised to meet current compliance requirements. Ant Erwin MD 11/01/2023 9:00:00 AM This report has been signed electronically. Number of Addenda: 0 Note Initiated On: 11/01/2023 7:44 AM
[2023-11-01 09:03] VITALS: BP 115/78; BP 133/72; PULSE 80; RESP 16; TEMP 36; O2SAT 99
[2023-11-01 09:05] VITALS: BP 107/79; BP 133/72; PULSE 77; RESP 16; O2SAT 100
--- NOTE | 2023-11-01 09:06 | OP.COLON_ITS ---
Patient Name: Kyree Rodas Procedure Date: 11/01/2023 8:11 AM Date of : 1980 Age: 43 Procedure: Colonoscopy Indications: Clinically significant diarrhea of unexplained origin Providers: Ant Erwin MD Medicines: See the Anesthesia note for documentation of the administered medications Patient Profile: Refer to note in patient chart for documentation of history and physical. Last Colonoscopy: none. The patient's first colonoscopy is today. Complications: No immediate complications. Estimated blood loss: Minimal. Procedure: Pre-Anesthesia Assessment: - The heart rate, respiratory rate, oxygen saturations, blood pressure, adequacy of pulmonary ventilation, and response to care were monitored throughout the procedure. - The heart rate, respiratory rate, oxygen saturations, blood pressure, adequacy of pulmonary ventilation, and response to care were monitored throughout the procedure. After I obtained informed consent, the scope was passed under direct vision. Throughout the procedure, the patient's blood pressure, pulse, and oxygen saturations were monitored continuously. The Colonoscope was introduced through the anus and advanced to the cecum, identified by its appearance. The colonoscopy was performed without difficulty. The patient tolerated the procedure well. The quality of the bowel preparation was adequate to identify polyps greater than 5 mm in size. Scope In: 8:13:02 AM Scope Withdrawal Time 0 hours 29 minutes 45 seconds Scope Out: 8:48:36 AM Total Procedure Duration Time 0 hours 35 minutes 34 seconds Findings: The perianal and digital rectal examinations were normal. Two semi-sessile polyps were found in the sigmoid colon and ascending colon. The polyps were 2 to 4 mm in size. Biopsies were taken with a cold forceps for histology. Estimated blood loss was minimal. A few small-mouthed diverticula were found in the sigmoid colon. No biopsies or other specimens were collected for this exam. The exam was otherwise without abnormality. Normal mucosa was found in the entire colon. Biopsies for histology were taken with a cold forceps from the ascending colon, transverse colon, descending colon, sigmoid colon and rectum for evaluation of microscopic colitis. Estimated blood loss was minimal. No additional abnormalities were found on retroflexion. Impression: - Two 2 to 4 mm polyps in the sigmoid colon and in the ascending colon. Biopsied. - Diverticulosis in the sigmoid colon. No specimens collected. - The examination was otherwise normal. - Normal mucosa in the entire examined colon. Biopsied. Recommendation: - Discharge patient to home (via wheelchair). - High fiber diet today. - Continue present medications. - No aspirin, ibuprofen, naproxen, or other non-steroidal anti-inflammatory drugs for 2 days after biopsy. - Await pathology results. - Repeat colonoscopy date to be determined after pending pathology results are reviewed for surveillance based on pathology results. - Telephone my office for pathology results in 1 week. Procedure Code(s): --- Professional --- 37713, Colonoscopy, flexible; with biopsy, single or multiple Diagnosis Code(s): --- Professional --- D12.5, Benign neoplasm of sigmoid colon D12.2, Benign neoplasm of ascending colon R19.7, Diarrhea, unspecified K57.30, Diverticulosis of large intestine without perforation or abscess without bleeding CPT copyright 2021 [employer]. All rights reserved. The codes documented in this report are preliminary and upon water taxi captain review may be revised to meet current compliance requirements. Ant Erwin MD 11/01/2023 9:06:24 AM This report has been signed electronically. Number of Addenda: 0 Note Initiated On: 11/01/2023 8:11 AM
--- NOTE | 2023-11-01 09:06 | OP.CCLET_ITS ---
11/01/2023 Shana Rios Md Re : Colonoscopy procedure for Kyree Rodas Dear Gabriel This procedure was performed on Wednesday, November 01, 2023. My impressions and recommendations are as follows: Impressions : - Two 2 to 4 mm polyps in the sigmoid colon and in the ascending colon. Biopsied. - Diverticulosis in the sigmoid colon. No specimens collected. - The examination was otherwise normal. - Normal mucosa in the entire examined colon. Biopsied. Recommendations : - Discharge patient to home (via wheelchair). - High fiber diet today. - Continue present medications. - No aspirin, ibuprofen, naproxen, or other non-steroidal anti-inflammatory drugs for 2 days after biopsy. - Await pathology results. - Repeat colonoscopy date to be determined after pending pathology results are reviewed for surveillance based on pathology results. - Telephone my office for pathology results in 1 week. My findings are described in the full procedure note, which is enclosed. If I can be of further assistance, please feel free to contact me at Doctor phone number(s): , Work: . Sincerely, Ant Erwin MD 11/01/2023 9:06:24 AM This report has been signed electronically.
[2023-11-01 09:07] VITALS: BP 115/78; PULSE 84; RESP 18; TEMP 36.1; O2SAT 99
[2023-11-01 09:10] VITALS: BP 133/72; BP 136/90; PULSE 78; RESP 16; TEMP 36.1; O2SAT 100
--- NOTE | 2023-11-01 09:10 | PCM.POSTANE2 ---
Anesthesia Postop Eval I Sum Postop Eval Completion status Anesthesia document: Postop Eval 1 completed: Yes Anesthesia Postop Eval I Summary Anesthesia Postop Eval I Summary: Anesthesia Postop Eval I: Assessment Summary Airway patent Yes 11/01/23 09:07 [email or web address] Spontaneous unlabored Yes 11/01/23 09:07 [email or web address] respirations Mental status Awake,Calm 11/01/23 09:07 [email or web address] nausea No 11/01/23 09:07 [email or web address] Vomiting No 11/01/23 09:07 [email or web address] Anesthesia Postop Eval I: Fluid Summary Crystalloid volume administer 1,400 11/01/23 09:07 [email or web address] (ml) Colloids volume administered ( ml) Blood Product volume administered (ml) Total IV fluid infused 1,400 11/01/23 09:07 [email or web address] Anesthesia Postop Eval I: Summary Notes Anesthesia Complication No 11/01/23 09:07 [email or web address] Anesthesia Complication Comment: Post-operative progress note Anesthesia: Postop Eval II Evaluation Mental status: Awake Pain Level: 0 nausea: No Vomiting: No Complications Anesthesia Complication: No
[2023-11-01 09:23] VITALS: BP 133/72
== END 2023-11-01 09:40 | disposition home or self-care (01) ==
LOC: EN 06:22 → AC 06:23
PROVIDERS: PCP Internal Medicine; Referring Provider Internal Medicine; Visit Provider Surgery
PROC: 0DJD8ZZ Inspection of Lower Intestinal Tract, Via Natural or Artificial Opening Endoscopic (ICD-10-PCS; CPT 45378; principal; 2023-11-01 07:25)
DX: K21.00 Gastro-esophageal reflux disease with esophagitis, without bleeding (principal); I10 Essential (primary) hypertension; K42.9 Umbilical hernia without obstruction or gangrene; Z87.891 Personal history of nicotine dependence; K44.9 Diaphragmatic hernia without obstruction or gangrene; K43.9 Ventral hernia without obstruction or gangrene; E78.2 Mixed hyperlipidemia; K57.30 Diverticulosis of large intestine without perforation or abscess without bleeding; K29.70 Gastritis, unspecified, without bleeding; K31.A0 Gastric intestinal metaplasia, unspecified; K22.70 Barrett's esophagus without dysplasia; K63.5 Polyp of colon; Z79.899 Other long term (current) drug therapy
CPT/HCPCS: 45380; 43239; 88305; 88312; 88341; 88342; J7120; J2405

== ENCOUNTER → 2023-12-05 | Outpatient (CLI) | payer BC, SELFPAY ==
--- NOTE | 2023-12-05 13:29 | STE_ITS ---
Reason For Study: Arrhythmia Stress Results Protocol: Dinh Protocol Maximum Predicted HR: 176 bpm Target HR: 150 bpm % Maximum Predicted HR: 89 % DurationHeart Rate Stage (mm:ss) (bpm) BP Comment Baseline 75 139/88No Chest Pain Dinh Protocol Stage I 3:00 96 128/78No Chest Pain Dinh Protocol Stage II 3:00 106 140/72No Chest Pain Dinh Protocol Stage III 3:00 120 142/70No Chest Pain Dinh Protocol Stage IV 2:00 157 154/72No Chest Pain; Mod Dyspnea; Leg Pain Recovery 89 118/80No Chest Pain Stress Duration: 11:00 mm:ss Maximum Stress HR: 157 bpm METS: 13 Baseline Echocardiogram Findings Stress Echo Wall motion Data Resting WM Intermediate WM Stress WM ECHO/Stress Test Echo w/o Contrast Interpretation Summary Stress echo. 43-year-old man with a family history of coronary disease. Stress protocol: Resting EKG demonstrates normal sinus rhythm with a rate of 75 bpm normal inter vals are noted resting blood pressure is 139/88 mmHg. The patient exercised according to [facility] Dinh protocol for a total duration of 11 minutes. Patient completed 2 minutes into stage IV of e Dinh protocol the maximum heart rate attained was 160 bpm which was 90% of max impacted heart rat e the maximum workload was 13.4 metabolic equivalents. At rest there were no ST or T wave [place] nges noted suggest ischemia and at peak exercise upsloping ST changes were noted we did not meet t he criteria for ischemia. No clinical angina was noted the test was terminated due to leg fatig ue. The rate-pressure product was 24,100. Blood pressure response to exercise was excellent. Stress echocardiogram. The resting echocardiogram demonstrated preserved left ventricular systolic fun ction estimated at 55% at rest. Structurally normal valves were noted. At peak exercise there was thickening of all [place] improvement in the ventricular cavity size with reduction, and improvemen t in ejection fraction to 65%. No wall motion abnormalities were present. Conclusion: Normal exercise stress echo at a high workload. No clinical angina noted. Excellent functional capacity. Ordering Physician: Laureano Mosquera Referring Physician: Laureano Mosquera Performed By: Mary Cast RCS
== END | disposition home or self-care (01) ==
LOC: CVS 13:27
PROVIDERS: PCP Internal Medicine; Referring Provider Internal Medicine Cardiovascular Disease; Visit Provider Internal Medicine Cardiovascular Disease
DX: R94.31 Abnormal electrocardiogram [ECG] [EKG] (principal); R00.2 Palpitations
CPT/HCPCS: 93017; 93350

== ENCOUNTER → 2023-12-26 | Outpatient (CLI) | payer BC, SELFPAY | END | disposition home or self-care (01) | LOC: SL 14:08 | PROVIDERS: PCP Internal Medicine; Referring Provider Nurse Practitioner Acute Care; Visit Provider Nurse Practitioner Acute Care | DX: G47.33 Obstructive sleep apnea (adult) (pediatric) (principal) | CPT/HCPCS: 95806 ==

== ENCOUNTER → 2024-06-02 | Outpatient (CLI) | payer BC, SELFPAY ==
[2024-06-02 12:37] LABS: Absolute Lymphocyte Count 2.81 X10^3/uL (0.83-4.51); Absolute Neutrophil Count 5.7 X10^3/uL (2.0-7.7); Basophil# 0.05 X10^3/uL; Basophil% 0.5 % (0-1); Eosinophil# 0.11 X10^3/uL; Eosinophils% 1.1 % (0-5); Hematocrit 44.9 % (40-54); Hemoglobin 14.5 g/dL (13.0-16.5); Lymphocyte # 2.81 X10^3/ul (0.83-4.51); Lymphocyte % 29.3 % (19-41); Mean Corp Hgb Conc 32.3 g/dL (32-36); Mean Corpuscular Hgb 30.5 pg (27.0-32.0); Mean Corpuscular Volume 94.5 fL (80-94); Mean Platelet Vol. 10.2 fl (6.2-12.0); Monocyte# 0.93 X10^3/uL; Monocyte% 9.7 % (0-10); NRBC Flagged by Analyzer 0 % (0-5); Neutrophil # 5.65 X10^3/uL (2.7-7.7); Neutrophil % 59.1 % (47-70); Platelet Count 327 K/mm3 (150-450); RBC Distribution Width CV 12.9 % (11.6-14.6); RBC Distribution Width SD 45.1 fl (35.1-43.9); Red Blood Count 4.75 M/mm3 (4.6-6.2); White Blood Count 9.6 K/mm3 (4.4-11.0)
[2024-06-02 12:51] LABS: ALB/GLOB Ratio 1.1 RATIO (0.9-2.4); AST(SGOT) 32 U/L (15-37); Alanine Aminotransfer ALT/SGPT 44 U/L (16-61); Albumin, Serum 3.9 g/dL (3.2-5.0); Alkaline Phosphatase 69 U/L (45-117); Anion Gap 7 (5-15); BUN 11 mg/dL (7-18); BUN/Creat Ratio 10.7 RATIO (10-20); Calcium,Total 9.7 mg/dL (8.5-10.1); Chloride 106 mmol/L (98-107); Cholesterol 235 mg/dL (200); Creatinine, Serum 1.03 mg/dL (0.70-1.30); EST Glomerular Filtration Rate 83 mL/min (>60); Est Glom Filt Rate - Afr Amer 101 mL/min (>60); Globulin 3.7 g/dL (2.2-4.2); Glucose 95 mg/dL (74-106); High Density Lipoprotein 56 mg/dL; Potassium 4.3 mmol/L (3.5-5.1); Protein, Total 7.6 g/dL (6.4-8.2); Sodium Level 139 mmol/L (136-145); Triglycerides 146 mg/dL; Very Low Density Lipoprotein 29 mg/dL (5-40)
== END | disposition home or self-care (01) ==
LOC: BIMLAB 08:33
PROVIDERS: PCP Internal Medicine; Referring Provider Internal Medicine; Visit Provider Internal Medicine
DX: I10 Essential (primary) hypertension (principal); E78.2 Mixed hyperlipidemia
CPT/HCPCS: 36415; 80053; 80061; 85025

== ENCOUNTER → 2025-04-10 | Outpatient (CLI) | payer BC, SELFPAY ==
--- OUTSIDE RECORDS SUMMARY | 2025-04-10 07:44 | XMS RPT_ITS | CCD ---
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 patient carries a history of palpitations. Patient reports he continues to have palpitations that he has learned to stop what he is doing and they spontaneously resolved. He denies any syncope or near syncope denies having fallen or passed out with any of the symptoms. The patient does report that they occur when he is stressed and he is very anxious and he is being treated for anxiety by a behavioral health specialist at [facility]. The patient does continue to drink alcohol 2 beers every day he has cut his caffeine down to 2 cups of coffee in the morning. The patient is tolerating the metoprolol succinate 50 mg daily. The patient's blood pressure is elevated in the office today at 180/106 we retook it after several minutes at 172/109. Patient reports that he gets like this when he is anxious and he is very anxio us in the office today. His heart rate was 85 and regular. The patient was evaluated last summer in November 2023 with a stress echocardiogram where he had normal ECG at a very high workload and excellent functional capacity with normal LV function. 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 Accompanied by: Self Is patient in pain?: No Allergies No Known Allergies Allergy (Verified 10/02/24 15:11) Medications ???Medication ???Instructions ???Recorded ???Confirmed ???Type coenzyme K37-ttrytwm E 100 mg-100 1 cap PO DAILY 09/23/23 10/02/24 History unit capsule omega-3s 360 ke-uis-bqw-fish oil 1 cap PO QHS 09/23/23 10/02/24 His tory 1,200 mg-D3 1,000 unit capsule (Fish Oil-Vit D3) magnesium 250 mg tablet 250 mg PO QDAY 03/11/24 10/02/24 H istory buspirone 10 mg tablet 10 mg PO BID #180 tabs 05/12/24 Rx aripiprazole 2 mg tablet 2 mg PO QHS #90 tabs 07/07/2409/11 Rx mirtazapine 7.5 mg tablet 7.5 mg PO QHS #90 tabs 07/07/24 Rx esomeprazole magnesium 40 mg 40 mg PO QDAY 10/02/24 History capsule,delayed release metoprolol succinate 50 mg 50 mg PO QDAY #180 tabs 10/02/24 0 10/02/24 Rx tablet,extended release 24 hr Have you fallen in the past year?: No PFSH Medical History Anxiety Marijuana use Dietary restriction History of ulceration Gastric reflux Former smoker History of pain when walking Chest pain Alcohol dependence with unspecified alcohol-induced disorder Intermittent palpitations Abnormal Holter monitor finding Depression Abdominal pain Ventral hernia GERD (gastroesophageal reflux disease) Mixed hyperlipidemia Essential hypertension Anxiety ADHD Surgical History History of esophagogastroduodenoscopy (EGD) Hx of colonoscopy H/O vasectomy H/O lateral meniscus repair of right knee Family History Father Alcoholism Heart disease Hypertension Grandfather Heart disease Hypertension Grandmother Alzheimer disease Mother Kidney disease Social History household members: spouse current occupational status: employed 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 Smoking Status: Former smoker quit date: 06/12/22 pack-years: 50 Electronic Cigarette Use: not used alcohol intake: former year quit: 2023 substance use type: does not use what type of physical activity do you participate in: none do you feel safe at home: Yes ROS Const Const: Negative for fatigue or weakness ENT ENT: Negative for dizziness or balance problems Cardio Chest Pain: Yes Palpitations: Yes Edema: None Muscle aches with walking: None Resp Respiratory: Negative for SOB with activity, SOB at rest or SOB orthopnea SOB lying down GI GI: Positive for heartburn and bright, red blood in stools; Negative nausea or vomiting Musc Musc: Negative for muscle weakness or balance problems Neuro Neuro: Negative for dizziness, (more content not included)... Normal [facility] MR/BMS.BPon 07-07-2024 MR/BMS.BP [facility] [address], [address] [place] [address] OFFICE VISIT Date of Service: 07/07/24 MR#: [id number] Acct: [id number] Name: ELIZABETH RODAS Rep #: [id number] : 1980 Provider: BATSHEVA pérez Age/Sex: 43/M Location: [facility] [place].[facility] Status: Signed Intake Vital Signs 05/12/24 15:09 06/02/24 07:57 07/07/24 14:26 Height 6 ft 6 ft 6 ft BP 117/76 Blood Pressure Location Lt brachial Position Sitting Respiration 16 Pulse 73 Pulse Source Monitor BP Intake Visit Reasons: 8 week fu Accompanied by: Self Allergies No Known Allergies Allergy (Verified 07/07/24 14:29) Medications ???Medication ???Instructions ???Recorded ???Confirmed ???Type coenzyme L86-qlclvaf E 100 mg-100 1 cap PO DAILY 09/23/23 07/07/24 History unit capsule omega-3s 360 px-fnj-zzz-fish oil 1 cap PO QHS 09/23/23 07/07/24 His tory 1,200 mg-D3 1,000 unit capsule (Fish Oil-Vit D3) flaxseed oil 1,000 mg capsule 1,000 mg PO QDAY 01/30/24 07/07/24 History metoprolol succinate 50 mg 50 mg PO QDAY 03/05/24 07/07/24 Hi story tablet,extended release 24 hr magnesium 250 mg tablet 250 mg PO QDAY 03/11/24 07/07/24 H istory buspirone 10 mg tablet 10 mg PO BID #180 tabs 05/12/24 Rx esomeprazole magnesium 40 mg 40 mg PO QHS #90 caps 06/01/24 Rx capsule,delayed release aripiprazole 2 mg tablet 2 mg PO QHS #90 tabs 07/07/2406/14 Rx mirtazapine 7.5 mg tablet 7.5 mg PO QHS #90 tabs 07/07/24 Rx PFSH Medical History (Updated 06/02/24 @ 10:[address] Monico Rios MD) Anxiety Marijuana use Dietary restriction History of ulceration Gastric reflux Former smoker History of pain when walking Chest pain Alcohol dependence with unspecified alcohol-induced disorder Intermittent palpitations Abnormal Holter monitor finding Depression Abdominal pain Ventral hernia GERD (gastroesophageal reflux disease) Mixed hyperlipidemia Essential hypertension Anxiety ADHD Surgical History History of esophagogastroduodenoscopy (EGD) Hx of colonoscopy H/O vasectomy H/O lateral meniscus repair of right knee Family History Father Alcoholism Heart disease Hypertension Grandfather Heart disease Hypertension Grandmother Alzheimer disease Mother Kidney disease Social History household members: spouse current occupational status: employed 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 Reports he has been doing well since last appointment. Has been sleeping well with the use of mirtazapine and has been sleeping throughout the night. Is feeling more well rested. Does not wake up feeling exhausted any longer and is feeling well rested. Anxiety has been fine for him. States he has even seen a reduction in blood pressure due to decreased anxiety which has been an added benefit. Denies any feelings of depression. Denies SI/HI. Does report he has been feeling irritable but this is more situationally related than anything else. His is going to [place] to see an MS specialist in September which is an added stressor. Appetite has been fine. Does feel he has been eating more. Does voice concern about cholesterol being elevated but reports PCP would like to wait and watch. Previous similar episode: Yes Age of first onset of symptoms: 21-30 years Review of Systems Constitutional Denies: fever(s), chills, change in weight or fatigue Eyes Denies: change in vision or blurry vision Ears, Nose, Mouth, Throat Denies: throat pain or neck pain Cardiovascular Denies: chest pain, palpitations or dyspnea Respiratory Denies: dyspnea or wheezing Gastrointestinal Reports: nausea, vomiting, heartburn and diarrhea; Denies: abdominal pain Genitourinary Denies: dysuria, urinary frequency or urinary urgency Musculoskeletal Reports: back pain; Denies: neck pain Integumentary/Breast Denies: rash, pruritus or erythema Neurological Denies: headache(s) Psychiatric Reports: irritability and difficulty concentrating; Denies: anxiety, panic attacks, change in sleep pattern, hopelessness, loss of interest, paranoia, visual hallucinations, auditory hallucinations, suicidal ideation or homicidal ideation Endocrine Denies: polyur (more content not included)... Normal [facility] US DOPPLER COMPLETEon 2024 US DOPPLER COMPLETE * * *Final Report* * * DATE OF EXAM: Jun 22 2024 3:54PM [facility] 1033 - US DOPPLER COMPLETE / PROCEDURE REASON: N50.8196 * * * * Physician Interpretation * * * * EXAMINATION: SCROTAL ULTRASOUND WITH DOPPLER IMAGING CLINICAL HISTORY: N50.8196 left scrotal pain TECHNIQUE: Sonography of the scrotal contents with color flow and spectral Doppler imaging of the testicular vasculature was performed. Images were obtained and stored in a permanent archive. M: USC_2 COMPARISON: None RESULT: RIGHT SCROTUM: Right testis: 4.5 cm x 2.1 x 3.3 cm. Homogeneous with no calcifications or mass. Normal intratesticular arterial and venous flow with normal spectral waveforms. Epididymis: Normal. Vascular flow on Color Doppler is symmetric to the contralateral side. Incidental 0.6 cm epididymal head cyst Hydrocele: none Varicocele: absent LEFT SCROTUM: Left testis: 4.6 x 2.2 x 3.6 cm. Homogeneous with no calcifications or mass. Normal intratesticular arterial and venous flow with normal spectral waveforms. Epididymis: Normal. Vascular flow on Color Doppler is symmetric to the contralateral side. Hydrocele: small present Varicocele: absent IMPRESSION: Incidental right epididymal head cyst Left hydrocele Otherwise normal sonographic appearance of the scrotal contents. No evidence of solid testicular mass Normal arterial and venous flow within both testes. Make Up Operator: [facility] Transcribe Date/Time: Jun 23 2024 7:16A Dictated by : SOFYA MARS MD This examination was interpreted and the report reviewed and electronically signed by: SOFYA MARS MD on Jun 23 2024 7:18AM EST [id number] Normal [facility] US SCROTUM AND CONTENTSon US SCROTUM AND CONTENTS * * *Final Report* * * DATE OF EXAM: Jun 22 2024 3:54PM U 1063 - US SCROTUM AND CONTENTS / PROCEDURE REASON: N50.8196 * * * * Physician Interpretation * * * * EXAMINATION: SCROTAL ULTRASOUND WITH DOPPLER IMAGING CLINICAL HISTORY: N50.8196 left scrotal pain TECHNIQUE: Sonography of the scrotal contents with color flow and spectral Doppler imaging of the testicular vasculature was performed. Images were obtained and stored in a permanent archive. M: USC_2 COMPARISON: None RESULT: RIGHT SCROTUM: Right testis: 4.5 cm x 2.1 x 3.3 cm. Homogeneous with no calcifications or mass. Normal intratesticular arterial and venous flow with normal spectral waveforms. Epididymis: Normal. Vascular flow on Color Doppler is symmetric to the contralateral side. Incidental 0.6 cm epididymal head cyst Hydrocele: none Varicocele: absent LEFT SCROTUM: Left testis: 4.6 x 2.2 x 3.6 cm. Homogeneous with no calcifications or mass. Normal intratesticular arterial and venous flow with normal spectral waveforms. Epididymis: Normal. Vascular flow on Color Doppler is symmetric to the contralateral side. Hydrocele: small present Varicocele: absent IMPRESSION: Incidental right epididymal head cyst Left hydrocele Otherwise normal sonographic appearance of the scrotal contents. No evidence of solid testicular mass Normal arterial and venous flow within both testes. Make Up Operator: [facility] Transcribe Date/Time: Jun 23 2024 7:16A Dictated by : SOFYA MARS MD This examination was interpreted and the report reviewed and electronically signed by: SOFYA MARS MD on Jun 23 2024 7:18AM EST [id number] Normal [facility] CBC W/Diff, Automatedon 01-2 Absolute Lymph 2.81 X10 3/uL Normal 0.83-4.51 [facility] Comment on above: Performed By: #### L 100.0100, L500.4100, L500.4050 #### [facility] [address] [place], [address] Absolute Neut 5.7 X10 3/uL Normal 2.0-7.7 [facility] Comment on above: Performed By: #### L 100.0100, L500.4100, L500.4050 #### [facility] [address] [place], [address] Basophils/100 WBC (Bld) 0.5 % Normal 0-1 [facility] Comment on above: Performed By: #### L 100.0100, L500.4100, L500.4050 #### [facility] [address] [place], [address] Eosinophils/100 WBC (Bld) 1.1 % Normal 0-5 [facility] Comment on above: Performed By: #### L 100.0100, L500.4100, L500.4050 #### [facility] [address] [place], [address] Erythrocyte distribution width (RBC) [Ratio] 12.9 % Normal 11.6-14.6 [facility] Comment on above: Performed By: #### L 100.0100, L500.4100, L500.4050 #### [facility] [address] [place], [address] Hematocrit (Bld) [Volume fraction] 44.9 % Normal 40-54 [facility] Comment on above: Performed By: #### L 100.0100, L500.4100, L500.4050 #### [facility] [address] [place], [address] Hemoglobin (Bld) [Mass/Vol] 14.5 g/dL Normal 13.0-16.5 [facility] Comment on above: Performed By: #### L 100.0100, L500.4100, L500.4050 #### [facility] [address] [place], [address] IG% 0.300 Normal 0.0-0.9 [facility] Comment on above: Result Comment: IG% - Immature Granulocytes (promyelocytes, myelocytes and metamyelocytes) > 1% indicates that a LEFT SHIFT is Present. Performed By: #### L 100.0100, L500.4100, L500.4050 #### [facility] [address] [place], [address] Lymphocytes/100 WBC (Bld) 29.3 % Normal 19-41 [facility] Comment on above: Performed By: #### L 100.0100, L500.4100, L500.4050 #### [facility] [address] [place], [address] MCH (RBC) [Entitic mass] 30.5 pg Normal 27.0-32.0 [facility] Comment on above: Performed By: #### L 100.0100, L500.4100, L500.4050 #### [facility] [address] [place], [address] MCHC (RBC) [Mass/Vol] 32.3 g/dL Normal 32-36 [facility] Comment on above: Performed By: #### L 100.0100, L500.4100, L500.4050 #### [facility] [address] [place], [address] MCV (RBC) [Entitic vol] 94.5 fL High 80-94 [facility] Comment on above: Performed By: #### L 100.0100, L500.4100, L500.4050 #### [facility] [address] [place], [address] Monocytes/100 WBC (Bld) 9.7 % Normal 0-10 [facility] Comment on above: Performed By: #### L 100.0100, L500.4100, L500.4050 #### [facility] [address] [place], [address] Neutrophils/100 WBC (Bld) 59.1 % Normal 47-70 [facility] Comment on above: Performed By: #### L 100.0100, L500.4100, L500.4050 #### [facility] [address] [place], [address] Nucleated RBC (Bld) [#/Vol] 0 10*3/uL Normal 0-5 [facility] Comment on above: Performed By: #### L 100.0100, L500.4100, L500.4050 #### [facility] [address] [place], [address] Platelet mean volume (Bld) [Entitic vol] 10.2 fL Normal 6.2-12.0 [facility] Comment on above: Performed By: #### L 100.0100, L500.4100, L500.4050 #### [facility] [address] [place], [address] Platelets (Bld) [#/Vol] 327 10*3/uL Normal 150-450 [facility] Comment on above: Performed By: #### L 100.0100, L500.4100, L500.4050 #### [facility] [address] [place], [address] RBC (Bld) [#/Vol] 4.75 10*6/uL Normal 4.6-6.2 [facility] Comment on above: Performed By: #### L 100.0100, L500.4100, L500.4050 #### [facility] [address] [place], [address] RDW SD 45.1 fl High 35.1-43.9 [facility] Comment on above: Performed By: #### L 100.0100, L500.4100, L500.4050 #### [facility] [address] [place], [address] WBC (Bld) [#/Vol] 9.6 10*3/uL Normal 4.4-11.0 [facility] Comment on above: Performed By: #### L 100.0100, L500.4100, L500.4050 #### [facility] [address] [place], [address] Comprehensive Metabolic Prof [facility] 06-02-2024 Albumin [Mass/Vol] 3.9 g/dL Normal 3.2-5.0 [facility] Comment on above: Performed By: #### L 100.0100, L500.4100, L500.4050 #### [facility] [address] [place], [address] Albumin/Globulin [Mass ratio] 1.1 {ratio} Normal 0.9-2.4 [facility] Comment on above: Performed By: #### L 100.0100, L500.4100, L500.4050 #### [facility] [address] [place], [address] ALK P 69 U/L Normal 45-117 [facility] Comment on above: Performed By: #### L 100.0100, L500.4100, L500.4050 #### [facility] [address] [place], [address] ALT [Catalytic activity/Vol] 44 U/L Normal 16-61 [facility] Comment on above: Performed By: #### L 100.0100, L500.4100, L500.4050 #### [facility] [address] [place], [address] AST [Catalytic activity/Vol] 32 U/L Normal 15-37 [facility] Comment on above: Performed By: #### L 100.0100, L500.4100, L500.4050 #### [facility] [address] [place], [address] Bilirubin [Mass/Vol] 0.60 mg/dL Normal 0.20-1.00 [facility] Comment on above: Result Comment: For patients on eltrombopag therapy, use of Dimension Smith TBIL is not recommended. Performed By: #### L 100.0100, L500.4100, L500.4050 #### [facility] [address] [place], [address] BUN/CRE 10.7 RATIO Normal 10-20 [facility] Comment on above: Performed By: #### L 100.0100, L500.4100, L500.4050 #### [facility] [address] [place], [address] CA,Total 9.7 mg/dL Normal 8.5-10.1 [facility] Comment on above: Performed By: #### L 100.0100, L500.4100, L500.4050 #### [facility] [address] [place], [address] Chloride [Moles/Vol] 106 mmol/L Normal 98-107 [facility] Comment on above: Performed By: #### L 100.0100, L500.4100, L500.4050 #### [facility] [address] [place], [address] CO2 [Moles/Vol] 26.0 mmol/L Normal 21.0-32.0 [facility] Comment on above: Performed By: #### L 100.0100, L500.4100, L500.4050 #### [facility] [address] [place], [address] Creatinine [Mass/Vol] 1.03 mg/dL Normal 0.70-1.30 [facility] Comment on above: Result Comment: The validity of the calculated GFR GFRAA in patients over 70 years has not been determined. Clinical correlation is essential. Performed By: #### L 100.0100, L500.4100, L500.4050 #### [facility] [address] [place], [address] EST GFR - AA 101 mL/min Normal >60 [facility] Comment on above: Result Comment: Afri can Citizen Of [place] GFR Calc Performed By: #### L 100.0100, L500.4100, L500.4050 #### [facility] [address] [place], [address] GAP 7 Normal 5-15 [facility] Comment on above: Performed By: #### L 100.0100, L500.4100, L500.4050 #### [facility] [address] [place], [address] GFR/1.73 sq M.predicted among non-blacks MDRD (S/P/Bld) [Vol rate/Area] 83 mL/min/{1.73_m2} Normal >60 [facility] Comment on above: Result Comment: Non- GFR Calc Performed By: #### L 100.0100, L500.4100, L500.4050 #### [facility] [address] [place], [address] Globulin (S) [Mass/Vol] 3.7 g/dL Normal 2.2-4.2 [facility] Comment on above: Performed By: #### L 100.0100, L500.4100, L500.4050 #### [facility] [address] [place], [address] Glucose [Mass/Vol] 95 mg/dL Normal 74-106 [facility] Comment on above: Performed By: #### L 100.0100, L500.4100, L500.4050 #### [facility] [address] [place], [address] Potassium [Moles/Vol] 4.3 mmol/L Normal 3.5-5.1 [facility] Comment on above: Performed By: #### L 100.0100, L500.4100, L500.4050 #### [facility] [address] [place], [address] Sodium [Moles/Vol] 139 mmol/L Normal 136-145 [facility] Comment on above: Performed By: #### L 100.0100, L500.4100, L500.4050 #### [facility] [address] [place], [address] T PROT 7.6 g/dL Normal 6.4-8.2 [facility] Comment on above: Performed By: #### L 100.0100, L500.4100, L500.4050 #### [facility] [address] [place], [address] Urea nitrogen [Mass/Vol] 11 mg/dL Normal 7-18 [facility] Comment on above: Performed By: #### L 100.0100, L500.4100, L500.4050 #### [facility] [address] [place], [address] Lipid Profileon 06-02-2024 Cholesterol [Mass/Vol] 235 mg/dL High 200 [facility] Comment on above: Result Comment: <200 mg/dL Desirable 200-240 mg/dL Borderline >240 mg/dL High Risk Performed By: #### L 100.0100, L500.4100, L500.4050 #### [facility] [address] [place], [address] Cholesterol in HDL [Mass/Vol] 56 mg/dL Normal [facility] Comment on above: Result Comment: The drugs N-Acetylcysteine and Metamizole may falsely depress this assay. Reference Range HDL <40 mg/dL Low HDL Cholesterol HDL >or= 60 mg/dL High HDL Cholesterol Performed By: #### L 100.0100, L500.4100, L500.4050 #### [facility] [address] [place], [address] Cholesterol in LDL [Mass/Vol] 150 mg/dL High 0-130 [facility] Comment on above: Performed By: #### L 100.0100, L500.4100, L500.4050 #### [facility] [address] [place], [address] Cholesterol in VLDL [Mass/Vol] 29 mg/dL Normal 5-40 [facility] Comment on above: Performed By: #### L 100.0100, L500.4100, L500.4050 #### [facility] [address] [place], [address] Triglyceride [Mass/Vol] 146 mg/dL Normal [facility] Comment on above: Result Comment: The drugs N-Acetylcysteine and Metamizole may falsely depress this assay. Serum Triglycerides Reference Interval Normal <150 mg/dL Borderline high 150 - 199 mg/dL High 200 - 499 mg/dL Very High > or = 500 mg/dL Performed By: #### L 100.0100, L500.4100, L500.4050 #### [facility] [address] [place], [address] Internal Medicine Office Vis belkys 06-01-2024 Internal Medicine Office Visit [id number] [place] [address] [place] [address] OFFICE VISIT Date of Service: 06/02/24 MR#: [id number] Acct: [id number] Name: ELIZABETH RODAS Rep #: [id number] : 1980 Provider: Dr. 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 Accompanied by: Self Is patient in pain?: No Allergies No Known Allergies Allergy (Verified 06/02/24 08:01) Medications ???Medication ???Instructions ???Recorded ???Confirmed ???Type coenzyme Y56-[id number] E 100 mg-100 1 cap PO DAILY 09/23/23 06/02/24 History unit capsule omega-3s 360 ii-wzf-tss-fish oil 1 cap PO QHS 09/23/23 06/02/24 History 1,200 mg-D3 1,000 unit capsule (Fish Oil-Vit D3) flaxseed oil 1,000 mg capsule 1,000 mg PO QDAY 01/30/24 06/02/24 History metoprolol succinate 50 mg 50 mg PO QDAY 03/05/24 06/02/24 History tablet,extended release 24 hr aripiprazole 2 mg tablet 2 mg PO QHS #90 tabs 03/11/24 06/02/24 Rx magnesium 250 mg tablet 250 mg PO QDAY 03/11/24 06/02/24 History buspirone 10 mg tablet 10 mg PO BID #180 tabs 05/12/24 06/02/24 Rx doxepin 10 mg capsule 10 mg PO QHS PRN insomnia #30 caps 05/12/24 06/02/24 Rx esomeprazole magnesium 40 mg 40 mg PO QHS #90 caps 06/01/24 06/02/24 Rx capsule,delayed release Have you fallen in the past year?: No Nurse's Note: left side testicular pain has had history of issues [facility] Medical History (Updated 06/02/24 @ 10:[address] Monico Rios MD) Anxiety Marijuana use Dietary restriction History of ulceration Gastric reflux Former smoker History of pain when walking Chest pain Alcohol dependence with unspecified alcohol-induced disorder Intermittent palpitations Abnormal Holter monitor finding Depression Abdominal pain Ventral hernia GERD (gastroesophageal reflux disease) Mixed hyperlipidemia Essential hypertension Anxiety ADHD Surgical History History of esophagogastroduodenoscopy (EGD) Hx of colonoscopy H/O vasectomy H/O lateral meniscus repair of right knee Family History Father Alcoholism Heart disease Hypertension Grandfather Heart disease Hypertension Grandmother Alzheimer disease Mother Kidney disease Social History household members: spouse current occupational status: employed 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 He is due for some routine blood work. He is not due for any screening. He doesn't want a flu shot. He doesn't need any refills today. He reports he is trying to eat healthy and reports he is physical at work. He reports his GERD symptoms have been doing better since stopping his alcohol use. He is taking the nexium and that does still help. Following his EGD last year, a tyrell fundoplication was discussed but he preferred not to move forward with it. He states he stopped drinking after that and it has been doing better. The patient has been monitoring his blood pressure at home occasionally and reports it has been well controlled. He is taking his medication as prescribed without problems. He does monitor his salt intake. He has a couple cups of coffee per day. He reports his palpitations are still occurring. He reports they are a little better than they were. He will still get the episodes where it will catch his breath, but it doesn't seem to put him into a panic like it did. He did see cardiology back in January. His metoprolol was changed to verapamil at that time, however, he reports that it made his symptoms worse, so he went back to the metoprolol. He is following with psychiatry for his mental health. He reports that he has been doing better with his current medications. He reports he isn't as anxious at work and reports his has noticed a difference. He reports he no longer stays angry at things like he used to. He denies any specific problems with the medications. He denies any thought (more content not included)... Normal [facility] MR/BMS.BPon 05-12-2024 MR/BMS.BP [facility] [address], [address] [place] [address] OFFICE VISIT Date of Service: 05/12/24 MR#: [id number] Acct: [id number] Name: ELIZABETH RODAS Rep #: [id number] : 1980 Provider: BATSHEVA pérez Age/Sex: 43/M Location: [facility].BP Status: Signed Intake Vital Signs 03/11/24 15:47 05/12/24 15:09 Height 6 ft 6 ft BP 129/81 H 143/91 H Blood Pressure Location Rt brachial Lt brachial Position Sitting Sitting Respiration 18 Pulse 60 67 Pulse Source Monitor Monitor BP Intake Visit Reasons: 8wfu Allergies No Known Allergies Allergy (Verified 03/11/24 15:46) [facility] Medical History Anxiety Marijuana use Dietary restriction History of ulceration Gastric reflux Former smoker History of pain when walking Chest pain Alcohol dependence with unspecified alcohol-induced disorder Intermittent palpitations Abnormal Holter monitor finding Depression Abdominal pain Ventral hernia GERD (gastroesophageal reflux disease) Mixed hyperlipidemia Essential hypertension Anxiety ADHD Surgical History History of esophagogastroduodenoscopy (EGD) Hx of colonoscopy H/O vasectomy H/O lateral meniscus repair of right knee Family History Father Alcoholism Heart disease Hypertension Grandfather Heart disease Hypertension Grandmother Alzheimer disease Mother Kidney disease Social History household members: spouse current occupational status: employed 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 Admits to nothing new going on in his life but is thankful that the holiday season is coming to an end. Has not been feeling depressed at all recently. Reports sometimes feeling more irritable and depressed during the holiday season. States his spouse has made comments about him being more calm, less anxious, and less fixated on things. Denies SI/HI. Admits to feeling much less anxious with increasing buspirone. Does at times feel lightheaded with buspirone for 40 minutes but is able to manage this well and has decreased anxiety with this. Denies any panic attacks since last appointment. Sleep has not been good recently. Struggles to sleep in on the weekend due to waking up early for work throughout the week. Admits to eating 3-4 times per day and feels it is plenty for him although it is small portions. Denies any changes in weight. Is still able to find eva in his current hobbies. Previous similar episode: Yes Age of first onset of symptoms: 21-30 years Review of Systems Constitutional Denies: fever(s), chills, change in weight or fatigue Eyes Denies: change in vision or blurry vision Ears, Nose, Mouth, Throat Denies: throat pain or neck pain Cardiovascular Denies: chest pain, palpitations or dyspnea Respiratory Denies: dyspnea or wheezing Gastrointestinal Reports: nausea, vomiting, heartburn and diarrhea; Denies: abdominal pain Genitourinary Denies: dysuria, urinary frequency or urinary urgency Musculoskeletal Reports: back pain; Denies: neck pain Integumentary/Breast Denies: rash, pruritus or erythema Neurological Denies: headache(s) Psychiatric Reports: difficulty concentrating; Denies: anxiety, panic attacks, hopelessness, loss of interest, irritability, paranoia, visual hallucinations, auditory hallucinations, suicidal ideation or homicidal ideation Endocrine Denies: polyuria, polydipsia or fatigue Hematologic/Lymphatic Denies: easy bruising Allergic/Immunologic Denies: wheezing Exam Mental Status Exam - Psych Appearance casually dressed, adequately groomed and no apparent distress Attitude cooperative and calm Activity/Motor Behavior MSE activity/motor behavior finding no adventitious movements and appropriate eye contact Speech regular volume, regular prosody and rapid (patient states he speaks quicker when he is nervous) Mood euythmic Affect full range Thought Process linear, logical and coherent Thought Content no delusions and no hallucinations Suicidal Ideation none Homicidal Ideation none Attention impaired (per patient self report) Concent (more content not included)... Normal [facility] MR/BMS.BPon 03-11-2024 MR/BMS.[facility] [address], [address] [place] [address] OFFICE VISIT Date of Service: 03/11/24 MR#: [id number] Acct: [id number] Name: ELIZABETH RODAS Rep #: [id number] : 1980 Provider: BATSHEVA pérez Age/Sex: 43/M Location: [facility] [place].BP Status: Signed Intake Vital Signs 01/29/24 15:03 01/30/24 15:06 03/05/24 07:53 03/11/24 15:47 Height 6 ft 6 ft 6 ft 6 ft Weight: 164 lb 162 lb BMI 22.2 21.9 BP 121/82 H 149/86 H 129/81 H Blood Pressure Location Lt brachial Rt brachial Rt brachial Position Sitting Sitting Sitting Respiration 16 18 Pulse 59 L 78 60 Pulse Source NIBP Monitor Monitor Temp 97.2 F L Temperature Source Temporal Artery Pulse Oximetry (%) 97 Oxygen Delivery Method room air BP Intake Visit Reasons: follow up Accompanied by: Self Is patient in pain?: No Allergies No Known Allergies Allergy (Verified 03/11/24 15:46) Medications ???Medication ???Instructions ???Recorded ???Confirmed ???Type coenzyme K12-wzubhgx E 100 mg-100 1 cap PO DAILY 09/23/23 03/11/24 History unit capsule omega-3s 360 nm-yee-zgx-fish oil 1 cap PO QHS 09/23/23 03/11/24 History 1,200 mg-D3 1,000 unit capsule (Fish Oil-Vit D3) flaxseed oil 1,000 mg capsule 1,000 mg PO QDAY 01/30/24 03/11/24 History esomeprazole magnesium 40 mg 40 mg PO QHS #90 caps 03/02/24 03/11/24 Rx capsule,delayed release metoprolol succinate 50 mg 50 mg PO QDAY 03/05/24 03/11/24 History tablet,extended release 24 hr aripiprazole 2 mg tablet 2 mg PO QHS #90 tabs 03/11/24 03/11/24 Rx buspirone 10 mg tablet 10 mg PO BID #60 tabs 03/11/24 03/11/24 Rx magnesium 250 mg tablet 250 mg PO QDAY 03/11/24 03/11/24 History PFSH Medical History (Reviewed 03/05/24 @ 15:14 by Shital Bucio HOUSE CLEANER SUPERVISOR, HOUSE CLEANER SUPERVISOR-C) Anxiety Marijuana use Dietary restriction History of ulceration Gastric reflux Former smoker History of pain when walking Chest pain Alcohol dependence with unspecified alcohol-induced disorder Intermittent palpitations Abnormal Holter monitor finding Depression Abdominal pain Ventral hernia GERD (gastroesophageal reflux disease) Mixed hyperlipidemia Essential hypertension Anxiety ADHD Surgical History History of esophagogastroduodenoscopy (EGD) Hx of colonoscopy H/O vasectomy H/O lateral meniscus repair of right knee Family History (Reviewed 03/05/24 @ 15:14 by Shital Bucio HOUSE CLEANER SUPERVISOR, HOUSE CLEANER SUPERVISOR-C) Father Alcoholism Heart disease Hypertension Grandfather Heart disease Hypertension Grandmother Alzheimer disease Mother Kidney disease Social History household members: spouse current occupational status: employed 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 Has not been doing a lot. Has still been spending a lot of time with his and spending time with her. Admits to wanting to do things with his and she does not want to do things that are costly but he feels it is due to it being a hassle. Does feel buspirone has helped with anxiety. Feels a large reduction in anxiety. Reports a decrease in palpitation since starting buspirone. Does feel dread and irritability are much decreased with work. Does feel things are not triggering him as much as they had in the past. Does on occasion still have panic attacks. Will separate himself when he is getting irritated in a situation in order to help himself calm down. Does feel the severity of panic attacks has been reduced. When he is having panic attacks his immediate reaction is to become irritable. Does report a decrease in depressive symptoms. Does feel he is struggling with motivation to do things. Does report he has been playing more video games on his phone and has been gardening/planting. Denies SI/HI. Sleep has not been good. Wakes up frequently and then is unable to fall back to sleep. Has started taking melatonin but does not stay asleep with this. Sleep study does not show SUSAN. Reports appetite to be poor. Previous similar episode: Yes Age of first onset of symptoms: 21-30 years Review of Systems Constitutional Reports: fatigue; Denies: fever(s), chills or change in weight Eyes Denies: change in vision or blurry vision Ears, Nose, Mouth, Throa (more content not included)... Normal [facility] Pulmonary Visit Reporton Pulmonary Visit Report [facility] [place] [address] [place], [place] [address] OFFICE VISIT Date of Service: 03/05/24 MR#: [id number] Acct: [id number] Name: ELIZABETH RODAS Rep #: [id number] : 1980 Provider: BATSHEVA Bucio Age/Sex: 43/M Location: [facility] [place].PMW Status: Signed Assessment and Plan Assessment and Plan (1) Daytime hypersomnia: Status: Acute Plan: Unattended sleep study was negative. The patient reports that he slept like normal. There is no concern for unreliable results. I suspect that the patient is actually experiencing some other type of sleep disorder. Referring him to a sleep specialist. (2) Smoking greater than 20 pack years: Status: Chronic Plan: He currently is asymptomatic but at risk for COPD given his extensive smoking. He will also be eligible for an LDCT at the age of 49. This was discussed at today's office visit. Given that he is asymptomatic, I am going to hold off on ordering any lung testing at this time. We are going to monitor him annually. If he becomes symptomatic we will order a pulmonary function test and walking oximetry. When he is eligible, we will order the appropriate LDCT. Follow-up in September and then annually after that. Orders: Referrals Neurology G47.10 - Hypersomnia, unspecified Plan Details Follow Up: 09/10/24 ([facility] 3 M FU Chief Complaint: Test results HPI Comments Details: This patient presents to the office today to discuss test results. He is ambulatory and currently on room air. He has not recently been seen in the ED or urgent care for any respiratory illness. He has not required any antibiotics or prednisone for any breathing problems. He continues to smoke cigarettes. He is currently smoking 1 pack/day. The patient reports that he used to be a heavy drinker. He is no longer drinking alcohol. He denies any difficulty with shortness of breath. He denies any cough, sputum production or hemoptysis. He denies any wheezing, chest tightness, chest pain or palpitations. He also denies any fever, chills or body aches. The patient reports that he slept normal the night of his sleep test. The patient reports that he wakes up frequently throughout the night to reposition. He does not snore. He is not feeling rested when he wakes up in the morning. He is not requiring naps and does not nod off to sleep unintentionally. He denies any difficulty with dry mouth or morning headaches. Test results personally with patient: Home sleep study completed on December 26, 2023. Overall AHI 4.5 events per hour. Diagnosis: This study does not meet the criteria used to define the presence of sleep apnea. Intake Vital Signs 07/26/24 08:07 01/30/24 15:06 03/05/24 07:53 Height 6 ft 6 ft 6 ft Weight: 162 lb BMI 21.9 BP 149/86 H Blood Pressure Location Rt brachial Position Sitting Respiration 18 Pulse 78 Pulse Source Monitor Temp 97.2 F L Temperature Source Temporal Artery Pulse Oximetry (%) 97 Oxygen Delivery Method room air Intake Visit Reasons: 3 M FU Chief Complaint: F/u DME Vendor: N/A Accompanied by: Self Allergies No Known Allergies Allergy (Verified 03/05/24 14:59) Medications ???Medication ???Instructions ???Recorded ???Confirmed ???Type coenzyme Q78-hzqofdd E 100 mg-100 1 cap PO DAILY 09/23/23 03/05/24 History unit capsule omega-3s 360 zc-slf-rps-fish oil 1 cap PO QHS 09/23/23 03/05/24 History 1,200 mg-D3 1,000 unit capsule (Fish Oil-Vit D3) aripiprazole 2 mg tablet 2 mg PO QHS #90 tabs 10/22/23 03/05/24 Rx buspirone 5 mg tablet 5 mg PO BID #60 tabs 01/29/24 03/05/24 Rx flaxseed oil 1,000 mg capsule 1,000 mg PO QDAY 01/30/24 03/05/24 History verapamil 120 mg tablet,extended 120 mg PO QDAY #30 tabs 01/30/24 03/05/24 Rx release esomeprazole magnesium 40 mg 40 mg PO QHS #90 caps 03/02/24 03/05/24 Rx capsule,delayed release metoprolol succinate 50 mg 50 mg PO QDAY 03/05/24 03/05/24 History tablet,extended release 24 hr PFSH Medical History (Reviewed 03/05/24 @ 15:14 by Shital Bucio HOUSE CLEANER SUPERVISOR, HOUSE CLEANER SUPERVISOR-C) Anxiety Marijuana use Dietary restriction History of ulceration Gastric reflux Former smoker History of pain when walking Chest pain Alcohol dependence with unspecified alcohol-induced disorder Intermittent palpitations Abnormal Holter monitor finding Depression Abdominal pain Ventral hernia GERD (gastroesophageal reflux disease) Mixed hyperlipidemia Essential hypertension Anxiety ADHD Surgical History (Reviewed 03/05/24 @ 15:14 by Shital Bucio HOUSE CLEANER SUPERVISOR, HOUSE CLEANER SUPERVISOR-C) History of esophagogastroduodenoscopy (EGD) Hx of colonoscopy H/O vasectomy H/O lateral meniscus repair of right knee Family History (Reviewed 03/05/24 @ 15:14 by Shital Bucio HOUSE CLEANER SUPERVISOR, HOUSE CLEANER SUPERVISOR-C (more content not included)... Normal [facility] ALLIED HEALTHon 02-01-2024 ALLIED HEALTH HNO ID: [id number] Author: BETH TEJADA RT(R) Service: Radiology Author Type: Technologist Type: Allied Health Filed: 02/01/2024 12:16 Note Text: Radiology Service Progress Note PATIENT NAME: Elizabeth Rodas DATE OF SERVICE: February 01, 2024 TIME: 12:16 PM PATIENT IDENTITY VERIFICATION COMPLETED USING TWO (2) IDENTIFIERS: Name and Date of confirmed by patient verbally. FALL SCREENING: Has the patient had 2 falls in the last year or 1 fall with injury or currently using an Ambulatory Assistive Device (Walker, Cane, Wheelchair, Crutches, etc.)? Emergency Room Patient: Screened in ED PATIENT GENDER DATA: Male PATIENT RELEVANT IMPLANT DATA REVIEWED: Not Applicable PATIENT PRESENTS WITH AN IMPLANTABLE OR ATTACHED REHAB TRAINER: No RADIOLOGY DEPARTMENT: General X-ray: Exam(s) Completed: Chest X-Ray PERIPHERAL IV DATA: Not applicable SIGNED BY: RT Maribell(R) February 01, 2024 12:16 PM Normal [facility] APAP SerPl-mCncon 02-01-2024 Acetaminophen [Mass/Vol] ug/mL Low 10-30 [facility] Comment on above: Order Comment: Speci men Type: BLOOD SPECIMEN Ordering Facility: [facility] Address: [address] [place] [address] Result Comment: Toxi c > 150 ug/mL 4 hours post ingestion The Richard Casiano nomogram can be used to estimate the probability of hepatotoxicity via the relationship of plasma acetaminophen concentration to the post ingestion interval. (Sav. Pediatrics. 1975. 55:871 to 876 and Richard et al. Arch Glue Spreading Machine Operator Med. 1981. 141:380 to 385). Reference ranges and high/low indicator flags are provided as general guidelines only. The treating physician must determine appropriate target levels/dosing based on the specific clinical situation. Performed By: #### 3 298-7 #### [facility][1] [facility] CLIA [id number] [address] [place] [address] [place] Basic metabolic 2000 panelon 02-01-2024 Anion gap [Moles/Vol] 14 mmol/L Normal 8-15 [facility] Comment on above: Order Comment: Speci men Type: BLOOD SPECIMEN Ordering Facility: [facility] Address: [address] [place] [address] Performed By: #### 2 4325-3, , 58042-4 #### [facility][1] [facility] CLIA [id number] [address] [place] [address] [place] Calcium [Mass/Vol] 10.4 mg/dL High 8.5-10.2 [facility] Comment on above: Order Comment: Speci men Type: BLOOD SPECIMEN Ordering Facility: [facility] Address: [address] [place] [address] Performed By: #### 2 4325-3, , 22389-7 #### [facility][1] [facility] CLIA [id number] [address] [place] [address] [place] Chloride [Moles/Vol] 100 mmol/L Normal 98-107 [facility] Comment on above: Order Comment: Speci men Type: BLOOD SPECIMEN Ordering Facility: [facility] Address: [address] [place] [address] Performed By: #### 2 4325-3, , 41853-8 #### [facility][1] [facility] CLIA [id number] [address] [place] [address] [place] CO2 [Moles/Vol] 25 mmol/L Normal 22-30 [facility] Comment on above: Order Comment: Speci men Type: BLOOD SPECIMEN Ordering Facility: [facility] Address: [address] [place] [address] Performed By: #### 2 4325-3, , 29921-5 #### [facility][1] [facility] CLIA [id number] [address] [place] [address] [place] Creatinine [Mass/Vol] 0.84 mg/dL Normal 0.73-1.22 [facility] Comment on above: Order Comment: Gabe pope Type: BLOOD SPECIMEN Ordering Facility: [facility] Address: [address] [place] [address] Performed By: #### 2 4325-3, 03150-5, 99561-2 #### [facility] CLIA [id number] [address] [place] [address] [place] Creatinine and Glomerular filtration rate.predicted panel (S/P/Bld) 110 mL/min/1.73m??? Normal >=60 [facility] Comment on above: Order Comment: Gabe pope Type: BLOOD SPECIMEN Ordering Facility: [facility] Address: [address] [place] [address] Result Comment: Elizabeth mated Glomerular Filtration Rate (eGFR) is calculated using the 2020 CKD-EPI creatinine equation. This equation utilizes serum creatinine, sex, and age as parameters. The creatinine assay has traceable calibration to isotope dilution-mass spectrometry. Refer to KDIGO guidelines for clinical interpretation. In patients with unstable renal function, e.g. those with acute kidney injury, the eGFR may not accurately reflect actual GFR. Performed By: #### 2 4325-3, , 62954-9 #### [facility] CLIA [id number] [address] [place] [address] [place] Glucose [Mass/Vol] 130 mg/dL High 74-99 [facility] Comment on above: Order Comment: Gabe pope Type: BLOOD SPECIMEN Ordering Facility: [facility] Address: [address] [place] [address] Result Comment: The [place] Diabetes Association (ADA) provides guidance for cutoff values for fasting glucose and random glucose. The ADA defines fasting as no caloric intake for at least 8 hours. Fasting plasma glucose results between 100 to 125 mg/dL indicate increased risk for diabetes (prediabetes). Fasting plasma glucose results greater than or equal to 126 mg/dL meet the criteria for diagnosis of diabetes. In the absence of unequivocal hyperglycemia, results should be confirmed by repeat testing. In a patient with classic symptoms of hyperglycemia or hyperglycemic crisis, random plasma glucose results greater than or equal to 200 mg/dL meet the criteria for diagnosis of diabetes. Reference: Standards of Medical Care in Diabetes 2016, [place] Diabetes Association. Diabetes Care. 2016.39(Suppl 1). Performed By: #### 2 4325-3, , #### [employer] [facility] LAB CLIA [id number] [address] [place] [address] [place] Potassium [Moles/Vol] 4.5 mmol/L Normal 3.7-5.1 [facility] Comment on above: Order Comment: Gabe pope Type: BLOOD SPECIMEN Ordering Facility: [facility] Address: [address] [place] [address] Performed By: #### 2 4325-3, , #### [employer] [facility] CLIA [id number] [address] [place] [address] [place] [facility] Sodium [Moles/Vol] 139 mmol/L Normal 136-144 [facility] Comment on above: Order Comment: Gabe pope Type: BLOOD SPECIMEN Ordering Facility: [facility] Address: [address] [place], [place] [address] Performed By: #### 2 4325-3, , #### [employer] [facility] CLIA [id number] [address] [place] [address] [place] Urea nitrogen [Mass/Vol] 10 mg/dL Normal 9-24 [facility] Comment on above: Order Comment: Gabe pope Type: BLOOD SPECIMEN Ordering Facility: [facility] Address: [address] [place] [address] Performed By: #### 2 4325-3, , 25617-9 #### [employer] [facility] CLIA [id number] [address] [place] [address] [place] ECG COMPLETEon 02-01-2024 ECG COMPLETE Ventricular Rate : 5 3 BPM Atrial Rate : 53 BPM P-R Interval : 134 ms QRS Duration : 88 ms Q-T Interval : 402 ms QTC Calculation(Bazett) : 377 ms Calculated P Clayton : 55 degrees Calculated R Clayton : 61 degrees Calculated T Clayton : 60 degrees SINUS BRADYCARDIA OTHERWISE NORMAL ECG NO PREVIOUS ECGS AVAILABLE Confirmed by MD JAUREGUI VINAYAK ([id number]) on 02/03/2024 10:59:13 PM NAME : ELIZABETH RODAS PID : [id number] : 1980 Gender : Male Race : ORD : [id number] Procedure Date : Feb 01 2024 11:17:23 Edit Date : Feb 03 2024 22:59:14 Diagnosis: SINUS BRADYCARDIA OTHERWISE NORMAL ECG NO PREVIOUS ECGS AVAILABLE Confirmed by MD JAUREGUI VINAYAK ([id number]) on 02/03/2024 10:59:13 PM Test Reason : Chest Pain Location : 191 : [facility] ED Overread By : MD JAUREGUI VINAYAK Edited By : MD JAUREGUI VINAYAK Referred By : , Acquired by : MADELIN TOLENTINO [facility] ED NOTEon 02-01-2024 ED NOTE HNO ID: [id number] Author: CHRIS PIERRE RN Service: Nursing Author Type: Registered Nurse Type: ED Notes Filed: 02/01/2024 16:07 Note Text: Patient leaves pleasant and cooperative, alert and oriented x 3 with regular and easy respirations. Discharge instructions discussed. There are no additional questions for the provider. Medications discussed with patients verbal understanding of purpose and potential side effects. Will follow up as directed or return to ED for worsening or life threatening symptoms. Normal [facility] ED NOTE HNO ID: [id number] Author: MAYTE PEREZ RN Service: ? Author Type: Registered Nurse Type: ED Notes Filed: 02/01/2024 11:23 Note Text: Pt come to ER c/o chest pain for 2 days. States that pain started yesterday evening after he put his hands above his head and stretched. Pt does not report hearing a pop or sound when stretching, just pain afterwards. Pt states pain is worse today and is causing him to sweat and become nauseas with vomiting. He is AANDox3, vss, diaphoretic. EKG-sinus chioma. Will continue to monitor. [facility] ED PROV NOTEon 02-01-2024 ED PROV NOTE HNO ID: [id number] Author: CARRI ORTIZ MD Service: Emergency Medicine Author Type: Physician Type: ED Provider Notes Filed: 02/01/2024 15:44 Note Text: ED Provider Note Patient Name: Elizabeth Rodas : 1980 SERVICE DATE: 02/01/24 History Patient presents with: Chest Pain The patient is a 43-year-old male present today for complaint of chest pain nausea and vomiting. Patient states the pain start about 2 days ago. He reached over his head and felt a sharp pain to the left side of his chest. He states with certain movements will radiate around his chest to his back. He states he did not feel any popping or tearing sensation. No shortness of breath. When he is not moving he does not Nestle feel the pain he states is not reproducible. This morning started having nausea and vomiting. Has a history of stomach issues. Has had vomiting the past but the pain and the vomiting episodes are very severe today more than they have been in the past. He denies any new medications. States he stopped drinking in October. He does smoke marijuana daily. Denies any diarrhea constipation or any other symptoms. PAST MEDICAL HISTORY Diagnosis Date Acute gastritis with hemorrhage 12/16 ? alcohol-related UGI bleed, EGD: erosions only; [facility]; Adjustment disorder with anxiety started when went back to work, baby at home, pt working several jobs; resolved 07/17 Tobacco use disorder age 17 PAST SURGICAL HISTORY Procedure Laterality Date EGD 01/03/06 Maria E, for hematemesis, [facility]; erosions only EXTRACTION, ERUPTED TOOTH OR EXPOSED ROOT (ELEVATION AND/OR FORCEPS REMOVAL) age 13 +/- conscious sedation PAST SURGICAL HISTORY OF 1995 gym class injury; Meniscus repair right knee, ACL reconstruction Right knee. TRANSPLANTATION TESTIS TO THIGH age 4 thinks was the right; VASECTOMY UNI/BI SPX W/POSTOP SEMEN EXAMS 09/03/14 FAMILY HISTORY Problem Relation Age of Onset No Known Problems Mother Coronary Artery Disease Father first TX at 45; CABG 6-vessel at age 45 Alcohol/Drug Father Hypertension Father Diabetes Father No Known Problems Sister Alzheimer's Disease Paternal Grandmother Alcohol/Drug Paternal Grandfather Heart Paternal Grandfather ADD/ADHD Daughter Anxiety disorder Daughter No Known Problems Daughter Social History Tobacco Use Smoking status: Former Current packs/day: 1.50 Average packs/day: 1.5 packs/day for 10.0 years (15.0 ttl pk-yrs) Types: Cigarettes Smokeless tobacco: Former Types: Chew Quit date: 06/07/2012 Vaping Use Vaping status: Never Used Substance and Sexual Activity Alcohol use: Not Currently Comment: Occasionally, enough to get drunk; 1-2 x/month, with . quit drinking 10/2023 Drug use: Yes Types: Marijuana Comment: daily Sexual activity: Yes Partners: Female Comment: has had Gonorrhea or Chlamydia (test inconclusive), tx'd for both; no tatoos; no transfusions. ALLERGIES No Known Allergies Review of Systems Constitutional: Negative for activity change, appetite change, chills, fatigue and fever. HENT: Negative for congestion, ear pain, rhinorrhea and sore throat. Respiratory: Negative for cough and shortness of breath. Cardiovascular: Positive for chest pain. Negative for palpitations. Gastrointestinal: Positive for nausea and vomiting. Negative for abdominal pain and diarrhea. Genitourinary: Negative for dysuria, frequency and urgency. Musculoskeletal: Negative for arthralgias and myalgias. Skin: Negative for rash and wound. Neurological: Negative for dizziness and headaches. Psychiatric/Behavioral: Negative for self-injury and suicidal ideas. All other systems reviewed and are negative. Physical Exam Vitals [02/01/24 1110] BP Pulse Temp Temp src Resp SpO2 Weight Height 179/101 68 36.3 ?C (97.4 ?F) Temporal 20 100 % 74.4 kg (164 lb) -- Physical Exam Vitals and nursing note reviewed. Constitutional: General: He is not in acute distress. Appearance: He is well-developed. HENT: Head: Normocephalic and atraumatic. Nose: Nose normal. Mouth/Throat: Mouth: Mucous membranes are moist. Eyes: Extraocular Movements: Extraocular movements intact. Pupils: Pupils are equal, round, and reactive to light. Cardiovascular: Rate and Rhythm: Normal rate and regular rhythm. Pulses: Carotid pulses are 2+ on the right side and 2+ on the left side. Radial pulses are 2+ on the right side and 2+ on the left side. Dorsalis pedis pulses are 2+ on the right side and 2+ on the left side. Posterior tibial pulses are 2+ on the right side and 2+ on the left side. Heart sounds: Normal heart sounds. No murmur heard. No friction rub. No gallop. Pulmonary: Effort: Pulmonary effort is normal. No respiratory distress. Breath sounds: Normal breath sounds. No stridor. No decreased breath sounds, wheezing, rhonchi or rales. Abdominal: General: Bowel sounds are normal. There is no distens (more content not included)... [facility] Hepatic function 2000 panelo n 02-01-2024 Albumin [Mass/Vol] 4.9 g/dL Normal 3.9-4.9 [facility] Comment on above: Order Comment: Speci men Type: BLOOD SPECIMEN Ordering Facility: [facility] Address: [address] [place] [address] Performed By: #### 2 4325-3, , 10930-8 #### [facility][1] [facility] CLIA [id number] [address] [place], [place] [id number] [place] [address] [place] ALP [Catalytic activity/Vol] 70 U/L Normal 38-113 [facility] Comment on above: Order Comment: Speci men Type: BLOOD SPECIMEN Ordering Facility: [facility] Address: [address] [place] [address] Performed By: #### 2 4325-3, , 73085-6 #### [facility][1] [facility] CLIA [id number] [address] [place], [place] [id number] [place] [address] [place] ALT With P-5'-P [Catalytic activity/Vol] 23 U/L Normal 10-54 [facility] Comment on above: Order Comment: Speci men Type: BLOOD SPECIMEN Ordering Facility: [facility] Address: [address] [place] [address] Performed By: #### 2 4325-3, , 06376-0 #### [facility][1] [facility] CLIA [id number] [address] [place] [address] [facility] AST With P-5'-P [Catalytic activity/Vol] 22 U/L Normal 14-40 [facility] Comment on above: Order Comment: Speci men Type: BLOOD SPECIMEN Ordering Facility: [facility] Address: [address] [place] [address] Performed By: #### 2 4325-3, , #### [facility] CLIA [id number] [address] [place] [address] [place] Bilirubin [Mass/Vol] 0.8 mg/dL Normal 0.2-1.3 [facility] Comment on above: Order Comment: Speci men Type: BLOOD SPECIMEN Ordering Facility: [facility] Address: [address] [place] [address] Performed By: #### 2 4325-3, , #### [facility] CLIA [id number] [address] [place] [address] [place] Bilirubin.direct [Mass/Vol] mg/dL Normal <0.2 [facility] Comment on above: Order Comment: Speci men Type: BLOOD SPECIMEN Ordering Facility: [facility] Address: [address] [place] [address] Performed By: #### 2 4325-3, , #### [facility] CLIA [id number] [address] [place] [address] [place] Protein [Mass/Vol] 7.9 g/dL Normal 6.3-8.0 [facility] Comment on above: Order Comment: Speci men Type: BLOOD SPECIMEN Ordering Facility: [facility] Address: [address] [place] [address] Performed By: #### 2 4325-3, , 79959-9 #### [facility] CLIA [id number] [address] [place] [address] [place] Magnesium SerPl-mCncon 01-31 Magnesium [Mass/Vol] 1.5 mg/dL Low 1.7-2.3 [facility] Comment on above: Order Comment: Speci men Type: BLOOD SPECIMEN Ordering Facility: [facility] Address: [address] [place] [address] Performed By: #### 2 4325-3, , 71637-2 #### [facility] CLIA [id number] [address] [place] [address] [place] XR CHEST 1V FRONTALon 2023 XR CHEST 1V FRONTAL * * *Final Report* * * DATE OF EXAM: Feb 01 2024 12:16PM LDX 5290 - XR CHEST 1V FRONTAL / PROCEDURE REASON: Chest pain * * * * Physician Interpretation * * * * EXAMINATION: CHEST RADIOGRAPH (SINGLE VIEW AP OR PA) CLINICAL HISTORY: Chest pain MQ: XC1_5 Comparison: None RESULT: Lines, tubes, and devices: None. Lungs and pleura: No consolidation. No pneumothorax. No pleural effusion. Cardiomediastinal silhouette: Normal cardiomediastinal silhouette. IMPRESSION: No acute radiographic abnormality. 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 Monico Rios MD Date Dictated: 01/30/24 1520 Date Transcribed: 01/30/241519 Make Up Operator: TEJINDER Signed Normal [facility] Cardiology Visit Reporton Cardiology Visit Report [facility] [address] [place] [address] OFFICE VISIT Date of Service: 01/30/24 MR#: [id number] Acct: [id number] Name: ELIZABETH RODAS Rep #: [id number] : 1980 Provider: BATSHEVA brink Age/Sex: 43/M Location: [facility] Status: Signed HPI HPI History of Present Illness Details: Pleasant 43-year-old man with a history of anxiety disorder who had been having palpitations. He had presented to see you complaining of some palpitations and had an event monitor placed. During the 14-day event monitor he did have an 8-second run of a wide-complex tachycardia which was thought to be ventricular tachycardia. He was otherwise asymptomatic. He has had a history of coffee use as well as a fair amount of alcoholic beverage use. This apparently had been going on for a number of years and he says that he stopped about 3 weeks ago. He does have occasional flareup of his anxiety . during the time of his cardiac dysrhythmia he had been utilizing alcohol. He had no dizziness or diaphoresis no near syncope or syncope he does not sense attest to losing a lot of weight recently. He did previously have an echocardiogram performed in 2003 during which there was equivocal mitral valve prolapse noted. He proceeded with a stress echocardiogram on 12/05/2023 that was negative for ischemia at a high workload without clinical angina, and showed excellent functional capacity. He acknowledges mid sternal, random chest discomfort. This occurs more than once a day. This is brief and comes and goes. He acknowledges palpitations that he is describes as thumping along with stop and then flutter. He denies bilateral lower extreme edema, claudication, shortness breath with activity, shortness of breath at rest, orthopnea, cough, or PND. He denies lightheadedness, dizziness, near-syncope, or syncope. He denies fatigue. 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 Accompanied by: Is patient in pain?: No Allergies No Known Allergies Allergy (Verified 01/30/24 15:10) Medications ???Medication ???Instructions ???Recorded ???Confirmed ???Type coenzyme Z40-semegag E 100 mg-100 1 cap PO DAILY 09/23/23 01/30/24 History unit capsule omega-3s 360 xb-xpz-zuq-fish oil 1 cap PO QHS 09/23/23 01/30/24 History 1,200 mg-D3 1,000 unit capsule (Fish Oil-Vit D3) aripiprazole 2 mg tablet 2 mg PO QHS #90 tabs 10/22/23 01/30/24 Rx esomeprazole magnesium 40 mg 40 mg PO QHS #30 caps 11/18/23 01/30/24 Rx capsule,delayed release buspirone 5 mg tablet 5 mg PO BID #60 tabs 01/29/24 01/30/24 Rx flaxseed oil 1,000 mg capsule 1,000 mg PO QDAY 01/30/24 01/30/24 History verapamil 120 mg tablet,extended 120 mg PO QDAY #30 tabs 01/30/24 01/30/24 Rx release Have you fallen in the past year?: No PFSH Medical History (Updated 01/30/24 @ 16:13 by Carlos Perez HOUSE CLEANER SUPERVISOR, HOUSE CLEANER SUPERVISOR-C) Anxiety Marijuana use Dietary restriction History of ulceration Gastric reflux Former smoker History of pain when walking Chest pain Alcohol dependence with unspecified alcohol-induced disorder Intermittent palpitations Abnormal Holter monitor finding Depression Abdominal pain Ventral hernia GERD (gastroesophageal reflux disease) Mixed hyperlipidemia Essential hypertension Anxiety ADHD Surgical History (Updated 01/30/24 @ 15:12 by Ramila Martínez) History of esophagogastroduodenoscopy (EGD) Hx of colonoscopy H/O vasectomy H/O lateral meniscus repair of right knee Family History Father Alcoholism Heart disease Hypertension Grandfather Heart disease Hypertension Grandmother Alzheimer disease Mother Kidney disease Social History household members: spouse current occupational status: employed 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 Smoking Status: Former smoker quit date: 06/12/22 pack-years: 50 Electronic Cigarette Use: not used alcohol intake: current alcohol intake frequency: 3 or more drinks per day Alcohol type: beer details: interested in quitting substance use type: does not use what type of physical activity do you participate in: none do you feel safe at home: Yes ROS Const Const: Negative for fatigue or weakness Eyes Eyes: Negative for change in vision ENT ENT: Negative for dizziness, Nosebleed/epistaxis or balance problems Cardio Chest Pain: Yes Frequency: more than once a day Character: other (discomfort) Onset: other (Occ (more content not included)... Normal [facility] MR/BMS.BPon 01-29-2024 MR/BMS.[address], [address] [place] [address] OFFICE VISIT Date of Service: 01/29/24 MR#: [id number] Acct: [id number] Name: ELIZABETH RODAS Rep #: [id number] : 1980 Provider: BATSHEVA pérez Age/Sex: 43/M Location: [facility].BP Status: Signed Intake Vital Signs 12/17/23 15:11 01/29/24 15:03 Height 6 ft 6 ft Weight: 168 lb BMI 22.8 BP 116/76 Respiration 17 Pulse 76 Pulse Oximetry (%) 99 BP Intake Visit Reasons: 6wfu Accompanied by: Self Allergies No Known Allergies Allergy (Verified 01/29/24 15:07) Medications ???Medication ???Instructions ???Recorded ???Confirmed ???Type FLAX SEED 1,000 mg PO QHS 11/12/22 01/29/24 History coenzyme O63-ucolhwk E 100 mg-100 1 cap PO DAILY 09/23/23 01/29/24 History unit capsule omega-3s 360 wb-klw-ezo-fish oil 1 cap PO QHS 09/23/23 01/29/24 History 1,200 mg-D3 1,000 unit capsule (Fish Oil-Vit D3) aripiprazole 2 mg tablet 2 mg PO QHS #90 tabs 10/22/23 01/29/24 Rx metoprolol succinate 50 mg 50 mg PO DAILY #90 tabs 10/30/23 01/29/24 Rx tablet,extended release 24 hr (Toprol XL) esomeprazole magnesium 40 mg 40 mg PO QHS #30 caps 11/18/23 01/29/24 Rx capsule,delayed release buspirone 5 mg tablet 5 mg PO BID #60 tabs 01/29/24 01/29/24 Rx PFSH Medical History Anxiety Marijuana use Dietary restriction History of ulceration Gastric reflux Former smoker History of pain when walking Chest pain Alcohol dependence with unspecified alcohol-induced disorder Intermittent palpitations Abnormal Holter monitor finding Depression Abdominal pain Ventral hernia GERD (gastroesophageal reflux disease) Mixed hyperlipidemia Essential hypertension Anxiety ADHD Surgical History Hx of colonoscopy H/O vasectomy H/O lateral meniscus repair of right knee Family History Father Alcoholism Heart disease Hypertension Grandfather Heart disease Hypertension Grandmother Alzheimer disease Mother Kidney disease Social History household members: spouse current occupational status: employed 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 Patient recently had a sleep study done and it came back negative for SUSAN. Still getting up multiple times per night. Is able to fall asleep quickly after waking up. Denies issues with falling asleep at the beginning of the night. Does not feel well rested. Is always tired/exhausted. Does nap at times. Appetite has been good. Patient denies changes in weight. Did notice he has been eating more sweets since becoming sober. Has been feeling depressed and agitated. Typically feels more frustrated at work due to relationships with coworkers. Reports his 's health is only getting worse and that she has lost her health coverage and now this is a financial strain. Denies SI/HI. Has been feeling anxious all the time. Does have heart palpitations with increased anxiety. Previous similar episode: Yes Age of first onset of symptoms: 21-30 years Review of Systems Constitutional Reports: fatigue; Denies: fever(s), chills or change in weight Eyes Denies: change in vision or blurry vision Ears, Nose, Mouth, Throat Denies: throat pain or neck pain Cardiovascular Reports: chest pain (with anxiety) and palpitations (with anxiety); Denies: dyspnea Respiratory Denies: dyspnea or wheezing Gastrointestinal Reports: nausea, vomiting, heartburn and diarrhea; Denies: abdominal pain Genitourinary Denies: dysuria, urinary frequency or urinary urgency Musculoskeletal Reports: back pain; Denies: neck pain Integumentary/Breast Denies: rash, pruritus or erythema Neurological Denies: headache(s) Psychiatric Reports: anxiety, hopelessness, loss of interest, irritability (decreased since last appointment ) and difficulty concentrating; Denies: paranoia, visual hallucinations, auditory hallucinations, suicidal ideation or homicidal ideation Endocrine Reports: fatigue; Denies: polyuria or polydipsia Hematologic/Lymphatic Denies: easy bruising Allergic/Immunologic Denies: wheezing Exam Mental Status Exam - Psych Appearan (more content not included)... Normal [facility] Absolute lymphocyte countOrd ered By: Monico Rios on 08-21-2023 Lymphocytes Auto (Unsp spec) [#/Vol] 1.96 10*3/uL 0.83-4.51 [facility] Automated lymphocyte count a s percentage of total leukocytesOrdered By: Monico Rios on 08-21-2023 Lymphocytes/100 WBC Auto (Unsp spec) 23.6 % 19-41 [facility] Basophil percentageOrdered B y: Monico Rios on 08-21-2023 Basophils/100 WBC (Bld) 0.6 % 0-1 [facility] Bilirubin [Mass/Vol] 0.80 mg/dL 0.20-1.00 [facility] Comment on above: For patients on eltr ombopag therapy, use of Dimension Smith TBIL is not recommended. Chloride [Moles/Vol] 107 mmol/L 98-107 [facility] Cholesterol [Mass/Vol] 213 mg/dL <200 [facility] Comment on above: <200 mg/dL Desirable 200-240 mg/dL Borderline >240 mg/dL High Risk Eosinophils/100 WBC (Bld) 0.5 % 0-5 [facility] Glucose [Mass/Vol] 95 mg/dL 74-106 [facility] Hemoglobin (Bld) [Mass/Vol] 14.0 g/dL 13.0-16.5 [facility] Monocytes/100 WBC (Bld) 8.9 % 0-10 [facility] Neutrophils (Bld) [#/Vol] 5.5 10*3/uL 2.0-7.7 [facility] Neutrophils/100 WBC (Bld) 66.2 % 47-70 [facility] Potassium [Moles/Vol] 4.2 mmol/L 3.5-5.1 [facility] Protein [Mass/Vol] 7.7 g/dL 6.4-8.2 [facility] Sodium [Moles/Vol] 138 mmol/L 136-145 [facility] Triglyceride [Mass/Vol] 138 mg/dL <199 [facility] Comment on above: The drugs N-Acetylcy steine and Metamizole may falsely depress this assay.Serum Triglycerides Reference Interval Normal <150 mg/dL Borderline high 150 - 199 mg/dL High 200 - 499 mg/dL Very High > or = 500 mg/dL WBC (Bld) [#/Vol] 8.3 10*3/uL 4.4-11.0 [facility] Determination of erythrocyte mean corpuscular volume (MCV)Ordered By: Monico Rios on 08-21-2023 MCV (RBC) [Entitic vol] 97.5 fL 80-94 [facility] Erythrocyte distribution wid th ratioOrdered By: Monico Rios on 08-21-2023 Erythrocyte distribution width (RBC) [Ratio] 12.6 % 11.6-14.6 [facility] Erythrocyte distribution wid th standard deviationOrdered By: Monico Rios on 08-21-2023 Erythrocyte distribution width (RBC) [Entitic vol] 45.0 fL 35.1-43.9 [facility] Hematocrit Auto (Bld) [Volum e fraction]Ordered By: Monico Rios on 08-21-2023 Hematocrit (Bld) [Volume fraction] 42.9 % 40-54 [facility] Immature granulocytes/100 WB C Auto (Bld)Ordered By: Monicojohnson Rios on 08-21-2023 Immature granulocytes/100 WBC (Bld) 0.200 % 0.0-0.9 [facility] Comment on above: IG% - Immature Granu locytes (promyelocytes, myelocytes and metamyelocytes) > 1% indicates that a LEFT SHIFT is Present. Laboratory - Chemistry and C hemistry - challengeOrdered By: Monico Rios on 08-21-2023 Albumin/Globulin [Mass ratio] 1.0 {ratio} 0.9-2.4 [facility] ALP [Catalytic activity/Vol] 67 U/L 45-117 [facility] ALT [Catalytic activity/Vol] 34 U/L 16-61 [facility] Cholesterol in HDL [Mass/Vol] 63 mg/dL >40 [facility] Comment on above: The drugs N-Acetylcy steine and Metamizole may falsely depress this assay. Reference Range HDL <40 mg/dL Low HDL Cholesterol HDL >or= 60 mg/dL High HDL Cholesterol Cholesterol in LDL [Mass/Vol] 122 mg/dL 0-130 [facility] CO2 [Moles/Vol] 27.0 mmol/L 21.0-32.0 [facility] Globulin (S) [Mass/Vol] 3.8 g/dL 2.2-4.2 [facility] Urea nitrogen/Creatinine [Mass ratio] 12.4 mg/mg 10-20 [facility] Laboratory - Hematology and Cell countsOrdered By: Monico Rios on 08-21-2023 MCH (RBC) [Entitic mass] 31.8 pg 27.0-32.0 [facility] MCHC (RBC) [Mass/Vol] 32.6 g/dL 32-36 [facility] Nucleated RBC/100 WBC (Bld) [Ratio] 0 % 0-5 [facility] Platelet mean volume (Bld) [Entitic vol] 10.4 fL 6.2-12.0 [facility] Platelets (Bld) [#/Vol] 322 10*3/uL 150-450 [facility] No Panel InformationOrdered By: Monico Rios on 08-21-2023 Estimated GFR (MDRD) Amer 109 mL/min >60 [facility] Comment on above: GFR Calc Estimated GFR (MDRD) Non-Af Amer 90 mL/min >60 [facility] Comment on above: Non- GFR Calc Vitamin D 25-Hydroxy 31.6 ng/mL [facility] Comment on above: Vitamin D 25(OH) Sta tus Range Deficiency <20 ng/mL (50nmol/L) Insufficiency 20 - 30 ng/mL (50 - 75 nmol/L) Sufficiency 30 - 100 ng/mL (75 - 250 nmol/L) Toxicity >100 ng/mL (>250 nmol/L) VLDL Cholesterol 28 mg/dL 5-40 [facility] RBC Auto (Bld) [#/Vol]Ordere d By: Monico Rios on 08-21-2023 RBC (Bld) [#/Vol] 4.40 10*6/uL 4.6-6.2 [facility] Serum or plasma calcium dmitry urement (mass/volume)Ordered By: Monico Rios on 08-21-2023 Calcium [Mass/Vol] 9.1 mg/dL 8.5-10.1 [facility] Serum or plasma creatinine m easurement (mass/volume)Ordered By: Monico Rios on 08-21-2023 Creatinine [Mass/Vol] 0.97 mg/dL 0.70-1.30 [facility] Comment on above: The validity of the calculated GFR & GFRAA in patients over 70 years has not been determined. Clinical correlation is essential. Serum or plasma thyroid stim ulating hormone (TSH) measurement (units/volume)Ordered By: Monico Rios on 08-21-2023 TSH Qn 1.73 uIU/mL 0.358-3.74 [facility] Serum or plasma urea nitroge n measurement (mass/volume)Ordered By: Monico Rios on 08-21-2023 Urea nitrogen [Mass/Vol] 12 mg/dL 7-18 [facility] Thin prep Papanicolaou smear with manual screeningOrdered By: Monico Rios on 08-21-2023 Thin prep Papanicolaou smear with manual screening 3.9 g/dL 3.2-5.0 [facility] Thin prep Papanicolaou smear with manual screening 23 U/L 15-37 [facility] Thin prep Papanicolaou smear with manual screening 4 5-15 [facility] Basophil percentageOrdered B y: Monico Rios on 02-16-2023 Bilirubin [Mass/Vol] 0.70 mg/dL 0.20-1.00 [facility] Comment on above: For patients on eltr ombopag therapy, use of Dimension Smith TBIL is not recommended. Chloride [Moles/Vol] 106 mmol/L 98-107 [facility] Cholesterol [Mass/Vol] 159 mg/dL <200 [facility] Comment on above: <200 mg/dL Desirable 200-240 mg/dL Borderline >240 mg/dL High Risk Glucose [Mass/Vol] 105 mg/dL 74-106 [facility] Comment on above: Fasting Glucose resu lt from 100 to 125 mg/dL suggests IMPAIRED HOMEOSTASIS per A.D.A. criteria. Potassium [Moles/Vol] 4.6 mmol/L 3.5-5.1 [facility] Protein [Mass/Vol] 7.2 g/dL 6.4-8.2 [facility] Sodium [Moles/Vol] 139 mmol/L 136-145 [facility] Triglyceride [Mass/Vol] 100 mg/dL <199 [facility] Comment on above: The drugs N-Acetylcy steine and Metamizole may falsely depress this assay.Serum Triglycerides Reference Interval Normal <150 mg/dL Borderline high 150 - 199 mg/dL High 200 - 499 mg/dL Very High > or = 500 mg/dL Laboratory - Chemistry and C hemistry - challengeOrdered By: Monico Rios on 02-16-2023 ALP [Catalytic activity/Vol] 70 U/L 45-117 [facility] ALT [Catalytic activity/Vol] 43 U/L 16-61 [facility] CO2 [Moles/Vol] 29.0 mmol/L 21.0-32.0 [facility] Globulin (S) [Mass/Vol] 3.4 g/dL 2.2-4.2 [facility] Urea nitrogen/Creatinine [Mass ratio] 12.2 mg/mg 10-20 [facility] No Panel InformationOrdered By: Monico Rios on 02-16-2023 Estimated GFR (MDRD) Amer 118 mL/min >60 [facility] Comment on above: GFR Calc Estimated GFR (MDRD) Non-Af Amer 97 mL/min >60 [facility] Comment on above: Non- GFR Calc Serum or plasma albumin dmitry urement (mass/volume)Ordered By: Monico Rios on 02-16-2023 Albumin [Mass/Vol] 3.8 g/dL 3.2-5.0 [facility] Serum or plasma albumin/glob ulin mass ratioOrdered By: Monico Rios on 02-16-2023 Albumin/Globulin [Mass ratio] 1.1 {ratio} 0.9-2.4 [facility] Serum or plasma calcium dmitry urement (mass/volume)Ordered By: Monico Rios on 02-16-2023 Calcium [Mass/Vol] 9.3 mg/dL 8.5-10.1 [facility] Serum or plasma cholesterol in HDL measurement (mass/volume)Ordered By: Monico Rios on 02-16-2023 Cholesterol in HDL [Mass/Vol] 58 mg/dL >40 [facility] Comment on above: The drugs N-Acetylcy steine and Metamizole may falsely depress this assay. Reference Range HDL <40 mg/dL Low HDL Cholesterol HDL >or= 60 mg/dL High HDL Cholesterol Serum or plasma cholesterol in VLDL measurement (mass/volume)Ordered By: Monico Rios on 02-16-2023 Cholesterol in VLDL [Mass/Vol] 20 mg/dL 5-40 [facility] Serum or plasma creatinine m easurement (mass/volume)Ordered By: Monico Rios on 02-16-2023 Creatinine [Mass/Vol] 0.90 mg/dL 0.70-1.30 [facility] Comment on above: The validity of the calculated GFR & GFRAA in patients over 70 years has not been determined. Clinical correlation is essential. Serum or plasma low density lipoprotein (LDL) cholesterol measurement (mass/volume)Ordered By: Monico Rios on 02-16-2023 Cholesterol in LDL [Mass/Vol] 81 mg/dL 0-130 [facility] Serum or plasma urea nitroge n measurement (mass/volume)Ordered By: Monico Rios on 02-16-2023 Urea nitrogen [Mass/Vol] 11 mg/dL 7-18 [facility] Thin prep Papanicolaou smear with manual screeningOrdered By: Monico Rios on 02-16-2023 Thin prep Papanicolaou smear with manual screening 23 U/L 15-37 [facility] Thin prep Papanicolaou smear with manual screening 4 5-[address] [facility] [address] ABD/PEL W IVCONon 023 [facility] Absolute lymphocyte countOrd ered By: Monico Rios on 11-03-2022 Lymphocytes Auto (Unsp spec) [#/Vol] 2.43 10*3/uL 0.83-4.51 [facility] Basophil percentageOrdered B y: Monico Rios on 11-03-2022 Basophils/100 WBC (Bld) 0.7 % 0-1 [facility] Bilirubin [Mass/Vol] 0.70 mg/dL 0.20-1.00 [facility] Comment on above: For patients on eltr ombopag therapy, use of Dimension Smith TBIL is not recommended. Chloride [Moles/Vol] 105 mmol/L 98-107 [facility] Cholesterol [Mass/Vol] 257 mg/dL <200 [facility] Comment on above: <200 mg/dL Desirable 200-240 mg/dL Borderline >240 mg/dL High Risk Eosinophils/100 WBC (Bld) 1.8 % 0-5 [facility] Glucose [Mass/Vol] 104 mg/dL 74-106 [facility] Comment on above: Fasting Glucose resu lt from 100 to 125 mg/dL suggests IMPAIRED HOMEOSTASIS per A.D.A. criteria. Neutrophils (Bld) [#/Vol] 5.8 10*3/uL 2.0-7.7 [facility] Neutrophils/100 WBC (Bld) 61.0 % 47-70 [facility] Potassium [Moles/Vol] 4.8 mmol/L 3.5-5.1 [facility] Protein [Mass/Vol] 7.6 g/dL 6.4-8.2 [facility] Sodium [Moles/Vol] 137 mmol/L 136-145 [facility] Triglyceride [Mass/Vol] 177 mg/dL <199 [facility] Comment on above: The drugs N-Acetylcy steine and Metamizole may falsely depress this assay.Serum Triglycerides Reference Interval Normal <150 mg/dL Borderline high 150 - 199 mg/dL High 200 - 499 mg/dL Very High > or = 500 mg/dL WBC (Bld) [#/Vol] 9.5 10*3/uL 4.4-11.0 [facility] Blood erythrocytes count (nu mber/volume)Ordered By: Monico Rios on 11-03-2022 RBC (Bld) [#/Vol] 4.89 10*6/uL 4.6-6.2 [facility] Blood hemoglobin measurement (mass/volume)Ordered By: Monico Rios on 11-03-2022 Hemoglobin (Bld) [Mass/Vol] 15.6 g/dL 13.0-16.5 [facility] Blood lymphocytes/100 leukoc ytesOrdered By: Monico Rios on 11-03-2022 Lymphocytes/100 WBC (Bld) 25.7 % 19-41 [facility] Blood monocytes/100 leukocyt esOrdered By: Monico Rios on 11-03-2022 Monocytes/100 WBC (Bld) 10.5 % 0-10 [facility] Blood platelet mean volumeOr dered By: Monico Rios on 11-03-2022 Platelet mean volume (Bld) [Entitic vol] 9.9 fL 6.2-12.0 [facility] Determination of erythrocyte mean corpuscular volume (MCV)Ordered By: Monico Rios on 11-03-2022 MCV (RBC) [Entitic vol] 98.6 fL 80-94 [facility] Hematocrit Auto (Bld) [Volum e fraction]Ordered By: Monico Rios on 11-03-2022 Hematocrit (Bld) [Volume fraction] 48.2 % 40-54 [facility] Laboratory - Chemistry and C hemistry - challengeOrdered By: Monico Rios on 11-03-2022 ALP [Catalytic activity/Vol] 65 U/L 45-117 [facility] ALT [Catalytic activity/Vol] 37 U/L 16-61 [facility] CO2 [Moles/Vol] 28.0 mmol/L 21.0-32.0 [facility] Globulin (S) [Mass/Vol] 3.9 g/dL 2.2-4.2 [facility] Urea nitrogen/Creatinine [Mass ratio] 14.3 mg/mg 10-20 [facility] Laboratory - Hematology and Cell countsOrdered By: Monico Rios on 11-03-2022 Erythrocyte distribution width (RBC) [Entitic vol] 45.1 fL 35.1-43.9 [facility] Erythrocyte distribution width (RBC) [Ratio] 12.4 % 11.6-14.6 [facility] Immature granulocytes/100 WBC (Bld) 0.300 % 0.0-0.9 [facility] Comment on above: IG% - Immature Granu locytes (promyelocytes, myelocytes and metamyelocytes) > 1% indicates that a LEFT SHIFT is Present. MCH (RBC) [Entitic mass] 31.9 pg 27.0-32.0 [facility] Nucleated RBC/100 WBC (Bld) [Ratio] 0 % 0-5 [facility] MCHC Auto (RBC) [Mass/Vol]Or dered By: Monico Rios on 11-03-2022 MCHC (RBC) [Mass/Vol] 32.4 g/dL 32-36 [facility] No Panel InformationOrdered By: Monico Rios on 11-03-2022 Endomysial IgA Antibody Negative Negative [facility] Estimated GFR (MDRD) Amer 107 mL/min >60 [facility] Comment on above: GFR Calc Estimated GFR (MDRD) Non-Af Amer 89 mL/min >60 [facility] Comment on above: Non- GFR Calc Thyroid Stimulating Hormone (TSH) 2.25 uIU/mL 0.358-3.74 [facility] Vitamin D 25-Hydroxy 36.0 ng/mL [facility] Comment on above: Vitamin D 25(OH) Sta tus Range Deficiency <20 ng/mL (50nmol/L) Insufficiency 20 - 30 ng/mL (50 - 75 nmol/L) Sufficiency 30 - 100 ng/mL (75 - 250 nmol/L) Toxicity >100 ng/mL (>250 nmol/L) Platelets bldOrdered By: Erickson Rios on 11-03-2022 Platelets (Bld) [#/Vol] 310 10*3/uL 150-450 [facility] Serum IgA measurement (units /volume)Ordered By: Monico Rios on 11-03-2022 IgA Qn (S) 283 mg/dL 90-386 [facility] Comment on above: Performed at: [place] [id number] Director: Gilmer Zaragoza PhD, Phone: [phone] Serum or plasma albumin dmitry urement (mass/volume)Ordered By: Monico Rios on 11-03-2022 Albumin [Mass/Vol] 3.7 g/dL 3.2-5.0 [facility] Serum or plasma albumin/glob ulin mass ratioOrdered By: Monico Rios on 11-03-2022 Albumin/Globulin [Mass ratio] 0.9 {ratio} 0.9-2.4 [facility] Serum or plasma calcium dmitry urement (mass/volume)Ordered By: Monico Rios on 11-03-2022 Calcium [Mass/Vol] 9.3 mg/dL 8.5-10.1 [facility] Serum or plasma cholesterol in HDL measurement (mass/volume)Ordered By: Monico Rios on 11-03-2022 Cholesterol in HDL [Mass/Vol] 59 mg/dL >40 [facility] Comment on above: The drugs N-Acetylcy steine and Metamizole may falsely depress this assay. Reference Range HDL <40 mg/dL Low HDL Cholesterol HDL >or= 60 mg/dL High HDL Cholesterol Serum or plasma cholesterol in VLDL measurement (mass/volume)Ordered By: Monico Rios on 11-03-2022 Cholesterol in VLDL [Mass/Vol] 35 mg/dL 5-40 [facility] Serum or plasma creatinine m easurement (mass/volume)Ordered By: Monico Rios on 11-03-2022 Creatinine [Mass/Vol] 0.98 mg/dL 0.70-1.30 [facility] Comment on above: The validity of the calculated GFR & GFRAA in patients over 70 years has not been determined. Clinical correlation is essential. Serum or plasma low density lipoprotein (LDL) cholesterol measurement (mass/volume)Ordered By: Monico Rios on 11-03-2022 Cholesterol in LDL [Mass/Vol] 163 mg/dL 0-130 [facility] Serum or plasma urea nitroge n measurement (mass/volume)Ordered By: Monico Rios on 11-03-2022 Urea nitrogen [Mass/Vol] 14 mg/dL 7-18 [facility] Serum tissue transglutaminas e IgA antibody assay (units/volume)Ordered By: Monico Rios on 11-03-2022 tTG IgA Qn (S) <2 U/mL 0-3 [facility] Comment on above: Negative 0 - 3 Weak Positive 4 - 10 Positive >10 Tissue Transglutaminase (tTG) has been identified as the endomysial antigen. Studies have demonstr- ated that endomysial IgA antibodies have over 99% specificity for gluten sensitive enteropathy. Thin prep Papanicolaou smear with manual screeningOrdered By: Monico Rios on 11-03-2022 Thin prep Papanicolaou smear with manual screening 22 U/L 15-37 [facility] Thin prep Papanicolaou smear with manual screening 4 5-15 [facility] Vital Signs Date Time Vital Sign Value Performing Clinician Faci noble 08-21-2023 08:03-0400 Body height 182.[address] Monico Rios Work Phone: [facility] 08-21-2023 08:03-0400 Body mass index (BMI) [Ratio] 22.5 kg/m2 Dr. Monico Rios Work Phone: [facility] 08-21-2023 08:03-0400 Body temperature 97.2 [degF] Dr. Monico Rios Work Phone: [facility] 08-21-2023 08:03-0400 Body weight 75.[address] Monico Rios Work Phone: [facility] 08-21-2023 08:03-0400 Diastolic blood pressure 86 mm[Hg] Dr. Monico Rios Work Phone: [facility] 08-21-2023 08:03-0400 Heart rate 86 /min Dr. Monico Rios Work Phone: [facility] 08-21-2023 08:03-0400 Respiratory rate 16 /min Dr. Monico Rios Work Phone: [facility] 08-21-2023 08:03-0400 SaO2% (BldA) [Mass fraction] 99 % Dr. Monico Rios Work Phone: [facility] 08-21-2023 08:03-0400 Systolic blood pressure 140 mm[Hg] Dr. Monico Rios Work Phone: [facility] 11-12-2022 22:54-0400 Diastolic blood pressure 86 mm[Hg] No Primary Care Physician [facility] 11-12-2022 22:54-0400 Systolic blood pressure 132 mm[Hg] No Primary Care Physician [facility] 11-12-2022 15:39-0400 Body height 182.88 cm No Primary Care Physician [facility] 11-12-2022 15:39-0400 Body mass index (BMI) [Ratio] 24.3 kg/m2 No Primary Care Physician [facility] 11-12-2022 15:39-0400 Body temperature 99.8 [degF] No Primary Care Physician [facility] 11-12-2022 15:39-0400 Body weight 81.19 kg No Primary Care Physician [facility] 11-12-2022 15:39-0400 Heart rate 89 /min No Primary Care Physician [facility] 11-12-2022 15:39-0400 Respiratory rate 16 /min No Primary Care Physician [facility] 11-12-2022 15:39-0400 SaO2% (BldA) [Mass fraction] 98 % No Primary Care Physician [facility] 10-29-2022 15:18-0400 Diastolic blood pressure 90 mm[Hg] No Primary Care Physician [facility] 10-29-2022 15:18-0400 Systolic blood pressure 152 mm[Hg] No Primary Care Physician [facility] 10-29-2022 14:08-0400 Body height 182.88 cm No Primary Care Physician [facility] 10-29-2022 14:08-0400 Body mass index (BMI) [Ratio] 23.8 kg/m2 No Primary Care Physician [facility] 10-29-2022 14:08-0400 Body temperature 98.1 [degF] No Primary Care Physician [facility] 10-29-2022 14:08-0400 Body weight 79.83 kg No Primary Care Physician [facility] 10-29-2022 14:08-0400 Heart rate 80 /min No Primary Care Physician [facility] 10-29-2022 14:08-0400 Respiratory rate 14 /min No Primary Care Physician [facility] 10-29-2022 14:08-0400 SaO2% (BldA) [Mass fraction] 98 % No Primary Care Physician [facility] Encounters Encounter Date Encounter Type Care Provider Facility Start: 01-06-2025 End: 01-06-2025 ambulatory Marika Hawk Facility:[facility] Start: 11-23-2024 End: 11-23-2024 ambulatory Monico Gabriel Facility:[facility] Start: 10-06-2024 End: 10-06-2024 ambulatory Monico Waldorf Facility:[facility] Start: 10-02-2024 End: 10-02-2024 ambulatory Monico Gabriel Facility:[facility] Start: 07-07-2024 End: 07-07-2024 ambulatory Marika Hawk Facility:[facility] Start: 06-22-2024 End: 06-22-2024 ambulatory MONICO G GABRIEL Facility:[facility] Start: 06-22-2024 End: 06-22-2024 Subsequent hospital visit by physician [facility] Work Phone: Radiology Start: 06-02-2024 End: 06-02-2024 ambulatory Monico Waldorf Facility:[facility] Start: 06-02-2024 End: 06-02-2024 ambulatory Monico Gabriel Facility:[facility] Start: 05-12-2024 End: 05-12-2024 ambulatory [facility] Start: 03-11-2024 End: [facility] Start: 03-05-2024 End: 03-05-2024 ambulatory Monico Gabriel Facility:[facility] Start: 02-01-2024 End: 02-01-2024 Emergency department patient visit CARRI ORTIZ Facility:[facility] Start: 01-30-2024 End: 01-30-2024 ambulatory Monico Gabriel Facility:[facility] Start: 01-29-2024 End: 01-29-2024 ambulatory [facility] Facility:[facility] Start: 08-24-[address] Monico Rios Work Phone: [facility] Work Phone: Start: 08-21-2023 End: 08-21-[address] Monico Rios Work Phone: [facility] Work Phone: Start: 08-21-2023 End: 08-21-[address] Monico Rios Work Phone: [facility] Work Phone: Start: 02-16-2023 End: 02-16-2023 ambulatory No Primary Care Physician [facility] Work Phone: Start: 02-16-2023 End: 02-16-2023 Patient encounter procedure No Primary Care Physician [facility] Work Phone: Start: 11-12-2022 End: 11-12-2022 Patient encounter procedure No Primary Care Physician [facility] Work Phone: Start: 11-07-2022 End: 11-07-2022 Subsequent hospital visit by physician [facility] ([facility]) Work Phone: Cat Scan Comment on above: Unspecified abdomina l hernia without obstruction or gangrene [K46.9] Start: 11-03-2022 End: 11-03-2022 ambulatory No Primary Care Physician [facility] Work Phone: Start: 11-03-2022 End: 11-03-2022 Patient encounter procedure No Primary Care Physician [facility] Work Phone: Start: 10-29-2022 End: 10-29-2022 Patient encounter procedure No Primary Care Physician [facility] Work Phone: Procedures Date Procedure Procedure Detail Performing Clinician Start: 11-07-2022 Ct abdomen & pelvis w/contrast material Monico Rios MD Work Phone: Start: 08-26-2018 Lipid 1996 panel - S l[place] or Plasma Ct ([facility]) Work Phone: Plan of Treatment Date Care Activity Detail Author Start: 06-20-2030 Urine microalbumin profile DTaP,Tdap,Td Vaccine (3 - Td or Tdap) [facility] Start: 01-12-2024 Covid-19 Vaccine ( season) Covid-19 Vaccine ( season) [facility] Start: 01-12-2024 Influenza vaccination Influenza Vaccine (#1) [facility] Start: 08-27-2023 Lipid 1996 panel - Serum or Plasma Lipid Screening [facility] Start: 08-27-2023 Lipid panel Lipid Screening [facility] Start: 08-21-2023 Patient referral [facility] Work Phone: Start: 08-21-2023 Evaluation of diagnostic study results [facility] Start: 01-11-2023 Influenza vaccination Influenza Vaccine (#1) [facility] Start: 11-12-2022 Patient referral [facility] Work Phone: Start: 05-13-2022 Depression Assessment Depression Assessment [facility] Start: 08-12-1998 Hepatitis B Vaccine (1 of 3 - 19+ 3-dose series) Hepatitis B Vaccine (1 of 3 - 19+ 3-dose series) [facility] Start: 08-12-1997 Anxiety Screening Anxiety Screening [facility] Start: 08-12-1997 Depression Screening Depression Screening [facility] Start: 08-12-1997 Hepatitis C Screening Hepatitis C Screening [facility] Start: 08-12-1997 Hepatitis C screening Hepatitis C Screening [facility] Start: 08-12-1997 HIV Screening HIV Screening [facility] Start: 08-12-1997 HIV screening HIV Screening [facility] Start: 08-12-1985 Pneumococcal vaccination Pneumococcal Vaccine (1 - PCV) [facility] Start: 02-12-1980 Covid-19 Vaccine (#1) Covid-19 Vaccine (#1) [facility] Start: 1979 Hepatitis B Vaccine (1 of 3 - 3-dose series) Hepatitis B Vaccine (1 of 3 - 3-dose series) [facility] CT Abdomen and Pelvi s W contrast IV [facility] Patient referral [facility] Work Phone: Immunizations Immunization Date Immunization Notes Care Provider [facility] 06-20-2020 tetanus toxoid, redu sarah diphtheria toxoid, and acellular pertussis vaccine, adsorbed No Primary Care Physician [facility] 08-18-2009 tetanus toxoid, redu sarah diphtheria toxoid, and acellular pertussis vaccine, adsorbed Ct ([facility]-Stat) Work Phone: [facility] Payers Date Payer Category Payer Self-pay [id number] 2022 Blue [employer] Blue [facility] [id number] 2022 Unknown [employer] PPO [id number] 2022-Present [phone] [address] [place] [address] PPO [id number] 2022 Unknown [id number] Unknown [facility] [id number] Unknown [id number] Unknown [id number] Unknown [id number] Unknown [id number] Unknown [id number] Unknown [id number] Unknown [id number] Unknown [id number] Unknown [id number] Unknown [id number] Unknown [id number] Unknown [id number] Social History Date Type Detail Facility Start: 10-29-2022 End: 08-21-2023 Tobacco smoking status NHIS Unknown if ever smoked [facility] Start: 1980 Sex Assigned At Male [facility] Start: 06-07-2014 [facility] History of tobacco use Cigarette Smoker [facility] Start: 06-07-2014 End: 11-07-2022 Cigarettes smoked current (pack per day) - Reported 1.5 [facility] Start: 06-07-2014 End: 02-01-2024 Tobacco use and exposure Former smokeless tobacco user [facility] End: 06-07-2012 History of tobacco use Chews Tobacco [facility] Start: 07-07-2019 Alcohol intake Current drinke r of alcohol (finding) [facility] Start: 07-07-2019 End: 11-07-2022 Tobacco use panel [facility] Adult Depression Screening Assessment 4 [facility] Start: 1980 Sex Assigned At Not on file [facility] Start: 02-01-2024 [facility] History of tobacco use Current smoker [facility] Start: 02-01-2024 Alcoholic beverage intake Ex-drinker (finding) [facility] Start: 02-01-2024 Alcohol Comment Occasionally, enough to get drunk; 1-2 x/month, with . quit drinking 10/2023 [facility] Functional Status Date Assessment Result Facility 09-03-2014 Are you deaf, or do you have serious difficulty hearing No 09/03/2014 1:01 PM Joanna Jarrett RN No [facility] 09-03-2014 Are you blind, or do you have serious difficulty seeing, even when wearing glasses No 09/03/2014 1:01 PM Joanna Jarrett RN No [facility] 09-03-2014 Do you have serious difficulty walking or climbing stairs No 09/03/2014 1:01 PM Joanna Jarrett RN No [facility] 09-03-2014 Do you have difficul ty dressing or bathing No 09/03/2014 1:01 PM Joanna Jarrett RN No [facility] 09-03-2014 Because of a physica l, mental, or emotional condition, do you have difficulty doing errands alone such as visiting a physician's office or shopping No 09/03/2014 1:01 PM EDT Joanna Simmons RN No [facility] Mental Status Date Assessment Result Facility 09-03-2014 Because of a physica l, mental, or emotional condition, do you have serious difficulty concentrating, remembering, or making decisions No 09/03/2014 1:01 PM EDT Joanna Simmons RN No [facility] History of Present illness Narrative 06-22-2024 Alicia Cano RDMS - 06/22/2024 3:15 PM EST Note Date & Type Note Facility 06-22-2024 History of Presen t illness Narrative Radiology Service Progress Note PATIENT NAME: Elizabeth Rodas DATE OF SERVICE: June 22, 2024 TIME: 3:54 PM PATIENT IDENTITY VERIFICATION COMPLETED USING TWO (2) IDENTIFIERS: Name and Date of confirmed by patient verbally. FALL SCREENING: Has the patient had 2 falls in the last year or 1 fall with injury or currently using an Ambulatory Assistive Device (Walker, Cane, Wheelchair, Crutches, etc.)? No PATIENT GENDER DATA: Assigned male at PATIENT RELEVANT IMPLANT DATA REVIEWED: Not Applicable PATIENT PRESENTS WITH AN IMPLANTABLE OR ATTACHED REHAB TRAINER: No RADIOLOGY DEPARTMENT: Ultrasound PERIPHERAL IV DATA: Not applicable SIGNED BY: Alicia Cano RDMS June 22, 2024 3:54 PM documented in this encounter [facility] Progress note 06-22-2024 Note Date & Type Note Facility 06-22-2024 Note HNO ID: [id number] Author: ALICIA CANO RDMS Service: ? Author Type: Yoghurt Maker Type: Progress Notes Filed: 06/22/2024 15:55 Note Text: Radiology Service Progress Note PATIENT NAME: Elizabeth Rodas DATE OF SERVICE: June 22, 2024 TIME: 3:54 PM PATIENT IDENTITY VERIFICATION COMPLETED USING TWO (2) IDENTIFIERS: Name and Date of confirmed by patient verbally. FALL SCREENING: Has the patient had 2 falls in the last year or 1 fall with injury or currently using an Ambulatory Assistive Device (Walker, Cane, Wheelchair, Crutches, etc.)? No PATIENT GENDER DATA: Assigned male at PATIENT RELEVANT IMPLANT DATA REVIEWED: Not Applicable PATIENT PRESENTS WITH AN IMPLANTABLE OR ATTACHED REHAB TRAINER: No RADIOLOGY DEPARTMENT: Ultrasound PERIPHERAL IV DATA: Not applicable SIGNED BY: Alicia Cano RDMS June 22, 2024 3:54 PM [facility] History of Present illness Narrative 11-07-2022 Evy Lovell RT(R) - 11/07/2022 3:00 PM EDT Note Date & Type Note Facility 11-07-2022 History of Presen t illness Narrative Radiology Service Progress Note DATE OF SERVICE: November 07, 2022 TIME: 3:14 PM PATIENT IDENTITY VERIFICATION COMPLETED USING TWO (2) STANDARD IDENTIFIERS: Name and Date of confirmed by patient verbally. FALL SCREENING: Has the patient had 2 falls in the last year or 1 fall with injury or currently using an Ambulatory Assistive Device (Walker, Cane, Wheelchair, Crutches, etc.)? No PATIENT GENDER DATA: Male PATIENT RELEVANT IMPLANT DATA REVIEWED: Yes ALLERGIES: Reviewed and unchanged CONTRAST ALLERGY: NO. EXAM: CT -CONTRAST INDUCED NEPHROPATHY RISK FACTORS: Not applicable CREATININE: Creatinine Date Value Ref Range Status 08/26/2018 1.21 0.73 - 1.22 mg/dL Final eGFR-All Other Races Date Value Ref Range Status 08/26/2018 >60 . Final Comment: eGFR (Estimated GFR) Units of measure: mL/min/1.73 meters squared eGFR is derived from the reexpressed MDRD Study equation using the following parameters: serum creatinine, age, gender and race. The creatinine assay has been calibrated to be traceable to IDMS. An eGFR <60 mL/min/1.73m2 for >3 months is consistent with chronic kidney disease. Refer to KDOQI guidelines for clinical interpretation. In patients with unstable renal function, e.g. those with acute kidney injury, the eGFR may not accurately reflect actual GFR. eGFR- Date Value Ref Range Status 08/26/2018 >60 Final P.O.C.T. RESULTS: POC done: Yes, See Lab Tab November 07, 2022 TREATMENT: N/A PERIPHERAL IV DATA: Ambulatory: A peripheral IV was started in the Left antecubital site with a Angio cath: 22 gauge. RADIOLOGY DEPARTMENT: CT; Exam(s) Completed: Abdomen/Pelvis SIGNATURE: RT Tram(R) PATIENT NAME: Elizabeth Rodas DATE: November 07, 2022 TIME: 3:14 PM documented in this encounter [facility] Chief complaint+Reason for visit Narrative Note Date & Type Note Facility Chief complaint+Reason for visit Narrative Reason for Visit Essential hypertensi on COVID-19 vaccination declined Moderate major depression Screening for cardiovascular condition Establishing care with new doctor, encounter for Moderate anxiety Ventral hernia Chronic abdominal pain [facility] Work Phone: Evaluation note Note Date & Type Note Facility Evaluation note Diagnosis Onset Date Essential hypertension acute COVID-19 vaccination declined noneactive Moderate major depression no neactive Screening for cardiovascular condition noneactive Establishing care with new d octor, encounter for noneactive Moderate anxiety noneactive Ventral hernia noneactive Chronic abdominal pain nonea [facility] Work Phone: Evaluation note Note Date & Type Note Facility Evaluation note Diagnosis Onset Date Essential hypertension acute COVID-19 vaccination declined noneactive Moderate major depression no neactive Screening for cardiovascular condition noneactive Establishing care with new d octor, encounter for noneactive Moderate anxiety noneactive Ventral hernia noneactive [facility] Essential hypertension acute Mixed hyperlipidemia acute Moderate major depression no neactive Moderate anxiety noneactive Ventral hernia noneactive Chronic abdominal pain nonea [facility] Work Phone: Evaluation note Note Date & Type Note Facility Evaluation note Diagnosis Onset Date Essential hypertension acute Mixed hyperlipidemia acute EtOH dependence noneactive Moderate major depression no neactive Palpitations noneactive Moderate anxiety noneactive Ventral hernia noneactive Chronic abdominal pain nonea [facility] Work Phone: Family History No Family History Records Found Relationship Condition Age at Onset Recorded Date/T madhuri father Alcoholism Unknown Cardiac disease Unknown Hypertension Unknown grandfather Cardiac disease Unknown grandmother Alzheimer's disease Unknown Advance Directives No Advanced Directives Records Found Advance Directive Response Recorded Date/ Time Living Will No August 04, 2018 9:23am 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 No August 04 9:23am Chief Complaint and Reason for Visit Chief Complaint EST NEW PT EORDERS 2 WK FU E ORDER Reason for Visit Essential hypertensi on COVID-19 vaccination declined Moderate major depression Screening for cardiovascular condition Establishing care with new doctor, encounter for Moderate anxiety Ventral hernia Chronic abdominal pain Essential hypertension Mixed hyperlipidemia Moderate major depression Moderate anxiety Ventral hernia Chronic abdominal pain Chief Complaint HEART/ANXIETY/ STOMA CH ISSUES R00.2 - Palpitations * AVELINO TO READ* Reason for Visit Essential hypertensi on Mixed hyperlipidemia EtOH dependence Moderate major depression Palpitations Moderate anxiety Ventral hernia Chronic abdominal pain Summary Purpose Additional Source Comments Care Teams (unrecognized sec tion and content) Team Status: Active Member Role Status Dates No Primary Care Physician Family Provider Active Dr. Monico Rios MD Primary Care Provider Active Team Status: Inactive Member Role Status Dates No Primary Care Physician Primary Care Provider, Refer ring Provider Active Dr. Monico Rios MD Attending Provider Active Team Status: Inactive Member Role Status Dates Dr. Monico Rios MD Primary Care Pro vider, Attending Provider, Referring Provider Active Team Status: Inactive Member Role Status Dates No Primary Care Physician Referring Provider Active Dr. Monico Rios MD Primary Care Provider, Attendi ng Provider Active Team Status: Inactive Member Role Status Dates Dr. Monico Rios MD Primary Care Provider, Attendi ng Provider Active Hospital Orderly Relationship Specialty Start Date End Date Harris So MD [address], [place] [phone] PCP - General 07/18/09 Team Status: Active Member Role Status Dates Dr. Monico Rios MD Primary Care Provider, Attendi ng Provider Active Hospital Orderly Relationship Specialty Start Date End Date Monico Rios MD [address], [place] [id number] PCP - General Internal Medicine 02/01/24 Goals (unrecognized section and content) Goals may be documented in a n alternate sectionGoals may be documented in an alternate sectionGoals may be documented in an alternate section Source Comments (unrecognize d section and content) In the event this informatio n is protected by the Federal Confidentiality of Alcohol and Drug Abuse Patient Records regulations: The Federal rules restrict any use of the information to criminally investigate or prosecute any alcohol or drug abuse patient.[facility] the event this information is protected by the Federal Confidentiality of Alcohol and Drug Abuse Patient Records regulations: The Federal rules restrict any use of the information to criminally investigate or prosecute any alcohol or drug abuse patient.[facility] Reason for Visit (unrecogniz ed section and content) Reason Comments Radiology CT Specialty Diagnoses / Procedures Referred By Janet awan Referred To Contact Radiology / RADIO CT SCAN [facility] Diagnoses K46. 9 Unspecified abdominal hernia without obstruction or gangrene. - Dr. Monico Rios Procedures CT WWO ABD1 400 Monico Rios MD NO FORWARDING ADDRESS Radio Ct Scan [facility] [address] [place] [address] Referral ID Status Reason Start Date Expiration Date Visits Re quested Visits Authorized [id number] Closed 10/29/2022 02/05/2023 1 1 Reason Comments Radiology [place] (unrecognized sect ion and content) No Status Records FoundNo Status Records FoundNo Status Records Found INFORMATION SOURCE (unrecogn ized section and content) DATE CREATED AUTHOR 02/05/2024 [facility] DATE CREATED AUTHOR AUTHOR'S ORGANIZ ATION 06/24/2024 [facility] DATE CREATED AUTHOR AUTHOR'S ORGANIZ ATION 01/07/2025 [facility] FOR RECORDS PERTAINING TO PATIENTS WHO ARE OR HAVE BEEN ENROLLED IN A CHEMICAL DEPENDENCY/SUBSTANCEABUSE PROGRAM, SOME INFORMATION MAY BE OMITTED. This clinical summary was aggregated from multiple sources. Caution should be exercised in using it in the provision of clinical care. This summary normalizes information from multiple sources, and as a consequence, information in this document may materially change the coding, format and clinical context of patient data. In addition, data may be omitted in some cases. CLINICAL DECISIONS SHOULD BE BASED ON THE PRIMARY CLINICAL RECORDS. [facility] [employer] [facility]. provides no warranty or guarantee of the accuracy or completeness of information in this document.
[2025-04-10 08:32] LABS: Cholesterol 285 mg/dL (<=200); Low Density Lipoprotein Calc. 112 mg/dL; Triglycerides 731 mg/dL; Very Low Density Lipoprotein 146 mg/dL (5-40); cholesterol:hdl ratio screen 6.61
[2025-04-10 08:33] LABS: AST(SGOT) 36 U/L (<=37); Alanine Aminotransfer ALT/SGPT 43 U/L (<=46); Albumin, Serum 4.3 g/dL (3.5-5.0); Alkaline Phosphatase 65 U/L (40-129); Anion Gap 11 (5-15); BUN 15 mg/dL (4-19); BUN/Creat Ratio 15.1 RATIO (10-20); Calcium,Total 9.8 mg/dL (7.6-11.0); Carbon Dioxide 27.3 mmol/L (21.0-32.0); Chloride 101 mmol/L (98-108); Globulin 3.1 g/dL (2.2-4.2); Glucose 104 mg/dL (70-99); Potassium 4.7 mmol/L (3.3-5.1)
== END | disposition home or self-care (01) ==
LOC: LAB 07:42
PROVIDERS: PCP Internal Medicine; Referring Provider Nurse Practitioner Family; Visit Provider Nurse Practitioner Family
DX: E78.2 Mixed hyperlipidemia (principal); R00.2 Palpitations; R94.31 Abnormal electrocardiogram [ECG] [EKG]
CPT/HCPCS: 36415; 80053; 80061

== ENCOUNTER → 2025-04-24 | Outpatient (CLI) | payer BC, SELFPAY ==
--- OUTSIDE RECORDS SUMMARY | 2025-04-24 07:05 | XMS RPT_ITS | CCD ---
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 Monico Rios Attending Provider Dr. Monico Rios Primary Care Provider Harris So MD Primary Care Provider [phone] Dr. Monico Rios Primary Care Provider Dr. Monico Rios Attending Provider Dr. Monico Rios Referring Provider CARRI ORTIZ Attending Unavailable MONICO RIOS Primary Care Unavailable Monico Rios MD Primary Care Provider MONICO RIOS Primary Care Unavailable Hawk, Marika Attending Unavailable Gabriel, Monico Primary Care Unavailable Hawk, Marika Attending Unavailable Raywick, Monico Primary Care Unavailable Gabriel, Monico Primary Care Unavailable Gabriel, Monico Attending Unavailable Gabriel, Monico Referring Unavailable Hawk, Marika Attending Unavailable Gabriel, Monico Primary Care Unavailable Raywick, Monico Primary Care Unavailable Ant Edwards Attending Unavailable Gabriel, Monico Referring Unavailable Gabriel, Monico Primary Care Unavailable Hawk, Marika Attending Unavailable Raywick, Monico Primary Care Unavailable Raywick, Monico Attending Unavailable Raywick, Monico Referring Unavailable Gabriel, Monico Primary Care Unavailable Monico Rios Attending Unavailable Gabriel, Monico Referring Unavailable Hawk, Marika Attending Unavailable Raywick, Monico Primary Care Unavailable Marika Hawk Attending Unavailable Raywick, Monico Primary Care Unavailable Gabriel, Monico Primary Care Unavailable Ana BUSINESS OFFICE MANAGER, Carlos Stone Attending Unavailable Gabriel, Monico Referring Unavailable Raywick, Monico Primary Care Unavailable Fortunato BUSINESS OFFICE MANAGERShital Attending Unavailable Raywick, Monico Referring Unavailable Medications Current Medications Medication [...] mouth two times a day. Active Coenzyme P33-Vkwugav E (2 sources) Start: 11-12-2022 Coenzyme E63-Igikmsa E Active CAP PO November 12, 2022 12:00am doxepin hydrochloride 25 mg oral capsule (2 sources) Tricyclic Antidepressant Start: 08-28-2018 take 1 capsule by mouth once daily at bedtime doxepin capsule 25 mg Indications: Chronic insomnia , Anxiety with depression Take 1 capsule by mouth daily at bedtime. 30 capsule 08/28/2018 Active Comment on above: Take 1 capsule by mo azh daily at bedtime. esomeprazole 40 mg delayed [...] on above: Take 1 capsule by mo [facility] three times daily as needed. metoprolol tartrate 100 mg oral tablet (1 source) beta-Adrenergic Jamie take 1 tablet by mouth once daily metoprolol tartrate, short acting, (LOPRESSOR) 100 mg tablet Take 100 mg by mouth once daily. Active Hdrnl-2l-Muu-Epa- Fish Oil-D3 (Fish Oil-Vit D3) 360 mg-1,200 mg -1,000 unit capsule (2 sources) Start: 11-12-2022 Vzqle-2c-Bkp-Epa-Fish Oil-D3 (Fish Oil-Vit D3) 360 mg-1,200 mg [...] Interpretation Reference Range Facility /BPon 01-06-2025 /BP [facility] [address] [place] [address], [address] [place] [address] OFFICE VISIT Date of Service: 01/06/25 MR#: [id number] Acct: [id number] Name: ELIZABETH RODAS Rep #: [id number] : 1980 Provider: BATSHEVA pérez Age/Sex: 44/M [place] [facility] [place] Status: Signed Intake Vital Signs 10/06/24 15:05 01/06/25 14:59 Height 6 ft 6 ft Weight: 182 lb BMI 24.7 BP 167/106 H 143/90 H Blood Pressure Location Lt brachial Lt brachial Position Sitting Sitting Respiration 16 16 Pulse 80 69 Pulse Source Monitor Monitor Comment is following up with rope tow operator BP Intake Visit Reasons: 3 M FU Accompanied by: Self Allergies No Known Allergies Allergy (Verified 01/06/25 15:01) Medications ???Medication ???Instructions ???Recorded ???Confirmed ???Type coenzyme A74-yilosyk E 100 mg-100 1 cap PO DAILY 09/23/23 01/06/25 History unit capsule omega-3s 360 co-nyg-uhh-fish oil 1 cap PO QHS 09/23/23 01/06/25 [...] spouse 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 [...] Mental Sta (more content not included)... Normal [facility] Internal Medicine Office Vis ito 11-19-2024 Internal Medicine Office Visit [facility] [address] [place] [address] [place] [address] OFFICE VISIT Date of Service: 11/23/24 MR#: [id number] Acct: [id number] Name: ELIZABETH RODAS Rep #: [id number] : 1980 Provider: Dr. 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 Normal [facility] MR/BMS.BPon 10-06-2024 MR/BMS.BP [facility] [address] [place] [address], [address] [place] [address] OFFICE VISIT Date of Service: 10/06/24 MR#: [id number] Acct: [id number] Name: ELIZABETH RODAS Rep #: [id number] : 1980 Provider: BATSHEVA pérez Age/Sex: 44/M [place] [facility] [place] Status: Signed Intake Vital [...] Medications ???Medication ???Instructions ???Recorded ???Confirmed ???Type coenzyme K34-rqcoiqn E 100 mg-100 1 cap PO DAILY 09/23/23 10/06/24 History unit capsule omega-3s 360 zo-yis-klj-fish oil 1 cap PO QHS 09/23/23 10/06/24 [...] spouse 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 Is planning to go to [place] with his in October and planning to [...] ideation Endocrine (more content not included)... Normal [facility] Cardiology Visit Reporton Cardiology Visit Report [facility] [address] [place] [address] OFFICE VISIT Date of Service: 10/02/24 MR#: [id number] Acct: [id number] Name: ELIZABETH RODAS Rep #: [id number] : 1980 Provider: Dr. Ant de los santos MD Age/Sex: 44/M [place] [facility] [place] Status: Signed HPI HPI History of [...] anxiety by a behavioral health specialist at [facility]. 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 Normal [facility] MR/BMS.BPon 07-07-2024 MR/BMS.BP [facility] [address] [facility], [address] [place] [address] OFFICE VISIT Date of Service: 07/07/24 MR#: [id number] Acct: [id number] Name: ELIZABETH RODAS Rep #: [id number] : 1980 Provider: BATSHEVA pérez Age/Sex: 43/M [place] [facility] [place] Status: Signed Intake Vital Signs 05/12/24 15:09 06/02/24 07:57 07/07/24 14:26 Height 6 ft 6 ft 6 ft BP 117/76 Blood Pressure Location Lt brachial Position Sitting Respiration 16 Pulse 73 Pulse Source Monitor BP Intake Visit Reasons: 8 week fu Accompanied by: Self Allergies No Known Allergies Allergy (Verified 07/07/24 14:29) Medications ???Medication ???Instructions ???Recorded ???Confirmed ???Type coenzyme W48-ztfbere E 100 mg-100 1 cap PO DAILY 09/23/23 07/07/24 History unit capsule omega-3s 360 pu-bzz-szf-fish oil 1 cap PO QHS 09/23/23 07/07/24 [...] spouse 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 His is going to [place] to see an MS specialist in September [...] Denies: polyur (more content not included)... Normal [facility] US DOPPLER COMPLETEon 2024 US DOPPLER COMPLETE * * *Final Report* * * DATE OF EXAM: Jun 22 2024 3:54PM [facility] 1033 - US DOPPLER COMPLETE / PROCEDURE [...] arterial and venous flow within both testes. Surtass Analyst[facility] Transcribe Date/Time: Jun 23 2024 7:16A Dictated by : SOFYA MARS MD This examination was interpreted and the report reviewed and electronically signed by: SOFYA MARS MD on Jun 23 2024 7:18AM EST [id number] Normal [facility] US SCROTUM AND CONTENTSon US SCROTUM [...] arterial and venous flow within both testes. Surtass Analyst: [facility] Transcribe Date/Time: Jun 23 2024 7:16A Dictated by : SOFYA MARS MD This examination was interpreted and the report reviewed and electronically signed by: SOFYA MARS MD on Jun 23 2024 7:18AM EST [id number] Normal [facility] CBC W/Diff, Automatedon 01-2 Absolute Lymph 2.81 X10 3/uL Normal 0.83-4.51 [facility] Comment on above: Performed By: #### L 100.0100, L500.4100, L500.4050 #### [facility] [address] [place], [address] Absolute Neut 5.7 X10 3/uL Normal 2.0-7.7 [facility] Comment on above: Performed By: #### L 100.0100, L500.4100, L500.4050 #### [facility] [address] [place], [address] Basophils/100 WBC (Bld) 0.5 % Normal 0-1 [facility] Comment on above: Performed By: #### L 100.0100, L500.4100, L500.4050 #### [facility] [address] [place], [address] Eosinophils/100 WBC (Bld) 1.1 % Normal 0-5 [facility] Comment on above: Performed By: #### L 100.0100, L500.4100, L500.4050 #### [facility] [address] [place], [address] Erythrocyte distribution width (RBC) [Ratio] 12.9 % Normal 11.6-14.6 [facility] Comment on above: Performed By: #### L 100.0100, L500.4100, L500.4050 #### [facility] [address] [place], [address] Hematocrit (Bld) [Volume fraction] 44.9 % Normal 40-54 [facility] Comment on above: Performed By: #### L 100.0100, L500.4100, L500.4050 #### [facility] [address] [place], [address] Hemoglobin (Bld) [Mass/Vol] 14.5 g/dL Normal 13.0-16.5 [facility] Comment on above: Performed By: #### L 100.0100, L500.4100, L500.4050 #### [facility] [address] [place], [address] IG% 0.300 Normal 0.0-0.9 [facility] Comment on above: Result Comment: IG% - Immature Granulocytes (promyelocytes, myelocytes and metamyelocytes) > 1% indicates that a LEFT SHIFT is Present. Performed By: #### L 100.0100, L500.4100, L500.4050 #### [facility] [address] [place], [address] Lymphocytes/100 WBC (Bld) 29.3 % Normal 19-41 [facility] Comment on above: Performed By: #### L 100.0100, L500.4100, L500.4050 #### [facility] [address] [place], [address] MCH (RBC) [Entitic mass] 30.5 pg Normal 27.0-32.0 [facility] Comment on above: Performed By: #### L 100.0100, L500.4100, L500.4050 #### [facility] [address] [place], [address] MCHC (RBC) [Mass/Vol] 32.3 g/dL Normal 32-36 [facility] Comment on above: Performed By: #### L 100.0100, L500.4100, L500.4050 #### [facility] [address] [place], [address] MCV (RBC) [Entitic vol] 94.5 fL High 80-94 [facility] Comment on above: Performed By: #### L 100.0100, L500.4100, L500.4050 #### [facility] [address] [place], [address] Monocytes/100 WBC (Bld) 9.7 % Normal 0-10 [facility] Comment on above: Performed By: #### L 100.0100, L500.4100, L500.4050 #### [facility] [address] [place], [address] Neutrophils/100 WBC (Bld) 59.1 % Normal 47-70 [facility] Comment on above: Performed By: #### L 100.0100, L500.4100, L500.4050 #### [facility] [address] [place], [address] Nucleated RBC (Bld) [#/Vol] 0 10*3/uL Normal 0-5 [facility] Comment on above: Performed By: #### L 100.0100, L500.4100, L500.4050 #### [facility] [address] [place], [address] Platelet mean volume (Bld) [Entitic vol] 10.2 fL Normal 6.2-12.0 [facility] Comment on above: Performed By: #### L 100.0100, L500.4100, L500.4050 #### [facility] [address] [place], [address] Platelets (Bld) [#/Vol] 327 10*3/uL Normal 150-450 [facility] Comment on above: Performed By: #### L 100.0100, L500.4100, L500.4050 #### [facility] [address] [place], [address] RBC (Bld) [#/Vol] 4.75 10*6/uL Normal 4.6-6.2 [facility] Comment on above: Performed By: #### L 100.0100, L500.4100, L500.4050 #### [facility] [address] [place], [address] RDW SD 45.1 fl High 35.1-43.9 [facility] Comment on above: Performed By: #### L 100.0100, L500.4100, L500.4050 #### [facility] [address] [place], [address] WBC (Bld) [#/Vol] 9.6 10*3/uL Normal 4.4-11.0 [facility] Comment on above: Performed By: #### L 100.0100, L500.4100, L500.4050 #### [facility] [address] [place], [address] Comprehensive Metabolic Prof [facility] 06-02-2024 Albumin [Mass/Vol] 3.9 g/dL Normal 3.2-5.0 [facility] Comment on above: Performed By: #### L 100.0100, L500.4100, L500.4050 #### [facility] [address] [place], [address] Albumin/Globulin [Mass ratio] 1.1 {ratio} Normal 0.9-2.4 [facility] Comment on above: Performed By: #### L 100.0100, L500.4100, L500.4050 #### [facility] [address] [place], [address] ALK P 69 U/L Normal 45-117 [facility] Comment on above: Performed By: #### L 100.0100, L500.4100, L500.4050 #### [facility] [address] [place], [address] ALT [Catalytic activity/Vol] 44 U/L Normal 16-61 [facility] Comment on above: Performed By: #### L 100.0100, L500.4100, L500.4050 #### [facility] [address] [place], [address] AST [Catalytic activity/Vol] 32 U/L Normal 15-37 [facility] Comment on above: Performed By: #### L 100.0100, L500.4100, L500.4050 #### [facility] [address] [place], [address] Bilirubin [Mass/Vol] 0.60 mg/dL Normal 0.20-1.00 [facility] Comment on above: Result Comment: For patients on eltrombopag therapy, use of Dimension Coleridge TBIL is not recommended. Performed By: #### L 100.0100, L500.4100, L500.4050 #### [facility] [address] [place], [address] BUN/CRE 10.7 RATIO Normal 10-20 [facility] Comment on above: Performed By: #### L 100.0100, L500.4100, L500.4050 #### [facility] [address] [place], [address] CA,Total 9.7 mg/dL Normal 8.5-10.1 [facility] Comment on above: Performed By: #### L 100.0100, L500.4100, L500.4050 #### [facility] [address] [place], [address] Chloride [Moles/Vol] 106 mmol/L Normal 98-107 [facility] Comment on above: Performed By: #### L 100.0100, L500.4100, L500.4050 #### [facility] [address] [place], [address] CO2 [Moles/Vol] 26.0 mmol/L Normal 21.0-32.0 [facility] Comment on above: Performed By: #### L 100.0100, L500.4100, L500.4050 #### [facility] [address] [place], [address] Creatinine [Mass/Vol] 1.03 mg/dL Normal 0.70-1.30 [facility] Comment on above: Result Comment: The validity of the calculated GFR GFRAA in patients over 70 years has not been determined. Clinical correlation is essential. Performed By: #### L 100.0100, L500.4100, L500.4050 #### [facility] [address] [place], [address] EST GFR - AA 101 mL/min Normal >60 [facility] Comment on above: Result Comment: Afri can Nigerien GFR Calc Performed By: #### L 100.0100, L500.4100, L500.4050 #### [facility] [address] [place], [address] GAP 7 Normal 5-15 [facility] Comment on above: Performed By: #### L 100.0100, L500.4100, L500.4050 #### [facility] [address] [place], [address] GFR/1.73 sq M.predicted among non-blacks MDRD (S/P/Bld) [Vol rate/Area] 83 mL/min/{1.73_m2} Normal >60 [facility] Comment on above: Result Comment: Non- GFR Calc Performed By: #### L 100.0100, L500.4100, L500.4050 #### [facility] [address] [place], [address] Globulin (S) [Mass/Vol] 3.7 g/dL Normal 2.2-4.2 [facility] Comment on above: Performed By: #### L 100.0100, L500.4100, L500.4050 #### [facility] [address] [place], [address] Glucose [Mass/Vol] 95 mg/dL Normal 74-106 [facility] Comment on above: Performed By: #### L 100.0100, L500.4100, L500.4050 #### [facility] [address] [place], [address] Potassium [Moles/Vol] 4.3 mmol/L Normal 3.5-5.1 [facility] Comment on above: Performed By: #### L 100.0100, L500.4100, L500.4050 #### [facility] [address] [place], [address] Sodium [Moles/Vol] 139 mmol/L Normal 136-145 [facility] Comment on above: Performed By: #### L 100.0100, L500.4100, L500.4050 #### [facility] [address] [place], [address] T PROT 7.6 g/dL Normal 6.4-8.2 [facility] Comment on above: Performed By: #### L 100.0100, L500.4100, L500.4050 #### [facility] [address] [place], [address] Urea nitrogen [Mass/Vol] 11 mg/dL Normal 7-18 [facility] Comment on above: Performed By: #### L 100.0100, L500.4100, L500.4050 #### [facility] [address] [place], [address] Lipid Profileon 06-02-2024 Cholesterol [Mass/Vol] 235 mg/dL High 200 [facility] Comment on above: Result Comment: <200 mg/dL Desirable 200-240 mg/dL Borderline >240 mg/dL High Risk Performed By: #### L 100.0100, L500.4100, L500.4050 #### [facility] [address] [place], [address] Cholesterol in HDL [Mass/Vol] 56 mg/dL Normal [facility] Comment on above: Result Comment: The drugs N-Acetylcysteine and Metamizole may falsely depress this assay. Reference Range HDL <40 mg/dL Low HDL Cholesterol HDL >or= 60 mg/dL High HDL Cholesterol Performed By: #### L 100.0100, L500.4100, L500.4050 #### [facility] [address] [place], [address] Cholesterol in LDL [Mass/Vol] 150 mg/dL High 0-130 [facility] Comment on above: Performed By: #### L 100.0100, L500.4100, L500.4050 #### [facility] [address] [place], [address] Cholesterol in VLDL [Mass/Vol] 29 mg/dL Normal 5-40 [facility] Comment on above: Performed By: #### L 100.0100, L500.4100, L500.4050 #### [facility] [address] [place], [address] Triglyceride [Mass/Vol] 146 mg/dL Normal [facility] Comment on above: Result Comment: The drugs N-Acetylcysteine and Metamizole may falsely depress this assay. Serum Triglycerides Reference Interval Normal <150 mg/dL Borderline high 150 - 199 mg/dL High 200 - 499 mg/dL Very High > or = 500 mg/dL Performed By: #### L 100.0100, L500.4100, L500.4050 #### [facility] [address] [place], [address] Internal Medicine Office Vis belkys 06-01-2024 Internal Medicine Office Visit [facility] [place] [address] [place] [address] OFFICE VISIT Date of Service: 06/02/24 MR#: [id number] Acct: [id number] Name: ELIZABETH RODAS Rep #: [id number] : 1980 Provider: Dr. Monico laguerre MD Age/Sex: 43/M [place] [facility] [place] Status: Signed Intake Vital Signs 05/12/24 15:09 06/02/24 07:57 Height 6 ft 6 ft Weight: 178 lb BMI 24.1 BP 122/76 H Blood Pressure Location Lt brachial Position Sitting Respiration 16 Pulse 68 Pulse Source Monitor Temp 97 F L Temp Source Temporal Pulse Oximetry (%) 99 Oxygen Delivery Method room air Intake Visit Reasons: TESTICULAR PAIN Chief Complaint: F/u Hosiery Pairer Required: No Accompanied by: Self Is patient in pain?: No Allergies No Known Allergies Allergy (Verified 06/02/24 08:01) Medications ???Medication ???Instructions ???Recorded ???Confirmed ???Type coenzyme D54-krmvshi E 100 mg-100 1 cap PO DAILY 09/23/23 06/02/24 History unit capsule omega-3s 360 mz-uol-ilt-fish oil 1 cap PO QHS 09/23/23 06/02/24 [...] testicular pain has had history of issues [facility] Medical History (Updated 06/02/24 @ 10:04 by [...] spouse 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 Normal [facility] MR/BMS.BPon 05-12-2024 MR/BMS.BP [facility] [address] [facility] [facility] [facility], [address] [place] [address] OFFICE VISIT Date of Service: 05/12/24 MR#: [id number] Acct: [id number] Name: ELIZABETH RODAS Rep #: [id number] : 1980 Provider: BATSHEVA pérez Age/Sex: 43/M [place] [facility] Status: Signed Intake Vital Signs 03/11/24 15:47 05/12/24 15:09 Height 6 ft 6 ft BP 129/81 H 143/91 H Blood Pressure Location Rt brachial Lt brachial Position Sitting Sitting Respiration 18 Pulse 60 67 Pulse Source Monitor Monitor BP Intake Visit Reasons: 8wfu Allergies No Known Allergies Allergy (Verified 03/11/24 15:46) [facility] Medical History Anxiety Marijuana use Dietary restriction [...] spouse 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 Normal [facility] MR/BMS.BPon 03-11-2024 MR/BMS.[facility] [address] [facility] [address] [facility], [address] [place] [address] OFFICE VISIT Date of Service: 03/11/24 MR#: [id number] Acct: [id number] Name: ELIZABETH RODAS Rep #: [id number] : 1980 Provider: BATSHEVA pérez Age/Sex: 43/M [place] [facility] [place] Status: Signed Intake Vital [...] Medications ???Medication ???Instructions ???Recorded ???Confirmed ???Type coenzyme C60-dnrrbmi E 100 mg-100 1 cap PO DAILY 09/23/23 03/11/24 History unit capsule omega-3s 360 es-iln-mby-fish oil 1 cap PO QHS 09/23/23 03/11/24 [...] (Reviewed 03/05/24 @ 15:14 by Shital Bucio BUSINESS OFFICE MANAGER, BUSINESS OFFICE MANAGER-C) Anxiety Marijuana use Dietary restriction History of [...] (Reviewed 03/05/24 @ 15:14 by Shital Bucio BUSINESS OFFICE MANAGER, BUSINESS OFFICE MANAGER-C) Father Alcoholism Heart disease Hypertension Grandfather Heart disease Hypertension Grandmother Alzheimer disease Mother Kidney disease Social History household members: spouse 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 Normal [facility] Pulmonary Visit Reporton Pulmonary Visit Report [facility] [place] [address] [place], [place] [address] OFFICE VISIT Date of Service: 03/05/24 MR#: [id number] Acct: [id number] Name: ELIZABETH RODAS Rep #: [id number] : 1980 Provider: BATSHEVA Bucio Age/Sex: 43/M [place] [facility] [place] [facility] Status: Signed Assessment and [...] Hypersomnia, unspecified Plan Details Follow Up: 09/10/24 ([facility] 3 M FU Chief Complaint: Test [...] Medications ???Medication ???Instructions ???Recorded ???Confirmed ???Type coenzyme C80-qbyluxv E 100 mg-100 1 cap PO DAILY 09/23/23 03/05/24 History unit capsule omega-3s 360 pr-ell-wnd-fish oil 1 cap PO QHS 09/23/23 03/05/24 [...] (Reviewed 03/05/24 @ 15:14 by Shital Bucio BUSINESS OFFICE MANAGER, BUSINESS OFFICE MANAGER-C) Anxiety Marijuana use Dietary restriction History of ulceration Gastric reflux Former smoker History of pain when walking Chest pain Alcohol dependence with unspecified alcohol-induced disorder Intermittent palpitations Abnormal Holter monitor finding Depression Abdominal pain Ventral hernia GERD (gastroesophageal reflux disease) Mixed hyperlipidemia Essential hypertension Anxiety ADHD Surgical History (Reviewed 03/05/24 @ 15:14 by Shital Bucio BUSINESS OFFICE MANAGER, BUSINESS OFFICE MANAGER-C) History of esophagogastroduodenoscopy (EGD) Hx of colonoscopy H/O vasectomy H/O lateral meniscus repair of right knee Family History (Reviewed 03/05/24 @ 15:14 by Shital Bucio BUSINESS OFFICE MANAGER, BUSINESS OFFICE MANAGER-C (more content not included)... Normal [facility] ALLIED HEALTHon 02-01-2024 ALLIED HEALTH HNO ID: [id number] Author: BETH TEJADA RT(R) Service: Radiology Author [...] PATIENT PRESENTS WITH AN IMPLANTABLE OR ATTACHED PROGRAM AIDE GROUP WORK: No RADIOLOGY DEPARTMENT: General X-ray: Exam(s) Completed: Chest X-Ray PERIPHERAL IV DATA: Not applicable SIGNED BY: RT Maribell(R) February 01, 2024 12:16 PM Normal [facility] APAP SerPl-mCncon 02-01-2024 Acetaminophen [Mass/Vol] ug/mL Low 10-30 [facility] Comment on above: Order Comment: Speci men Type: BLOOD SPECIMEN Ordering Facility: [facility] Address: [address] [place] [address] Result Comment: Toxi c > 150 ug/mL 4 hours post ingestion The Richard Casiano nomogram can be used to estimate the probability of hepatotoxicity via the relationship of plasma acetaminophen concentration to the post ingestion interval. (Sav. Pediatrics. 1975. 55:871 to 876 and Richard et al. Arch Admittance Attendant Med. 1981. 141:380 to 385). Reference ranges and high/low indicator flags are provided as general guidelines only. The treating physician must determine appropriate target levels/dosing based on the specific clinical situation. Performed By: #### 3 298-7 #### [facility] CLIA [id number] [address] [place] [address] [place] Basic metabolic 2000 panelon 02-01-2024 Anion gap [Moles/Vol] 14 mmol/L Normal 8-15 [facility] Comment on above: Order Comment: Speci men Type: BLOOD SPECIMEN Ordering Facility: [facility] Address: [address] [place] [address] Performed By: #### 2 4325-3, , 76697-4 #### [facility] CLIA [id number] [address] [place] [address] [place] Calcium [Mass/Vol] 10.4 mg/dL High 8.5-10.2 [facility] Comment on above: Order Comment: Speci men Type: BLOOD SPECIMEN Ordering Facility: [facility] Address: [address] [place] [address] Performed By: #### 2 4325-3, , 06184-3 #### [facility] CLIA [id number] [address] [place] [address] [place] Chloride [Moles/Vol] 100 mmol/L Normal 98-107 [facility] Comment on above: Order Comment: Speci men Type: BLOOD SPECIMEN Ordering Facility: [facility] Address: [address] [place] [address] Performed By: #### 2 4325-3, , 19663-6 #### [facility] CLIA [id number] [address] [place] [address] [place] CO2 [Moles/Vol] 25 mmol/L Normal 22-30 [facility] Comment on above: Order Comment: Speci men Type: BLOOD SPECIMEN Ordering Facility: [facility] Address: [address] [place] [address] Performed By: #### 2 4325-3, , 33109-0 #### [facility] CLIA [id number] [address] [place] [address] [place] Creatinine [Mass/Vol] 0.84 mg/dL Normal 0.73-1.22 [facility] Comment on above: Order Comment: Gabe pope Type: BLOOD SPECIMEN Ordering Facility: [facility] Address: [address] [place] [address] Performed By: #### 2 4325-3, 94182-5, 92918-1 #### [facility] CLIA [id number] [address] [place] [address] [place] Creatinine and Glomerular filtration rate.predicted panel (S/P/Bld) 110 mL/min/1.73m??? Normal >=60 [facility] Comment on above: Order Comment: Gabe pope Type: BLOOD SPECIMEN Ordering Facility: [facility] Address: [address] [place] [address] Result Comment: Elizabeth mated Glomerular Filtration Rate [...] GFR. Performed By: #### 2 4325-3, , 06153-6 #### [facility] CLIA [id number] [address] [place] [address] [place] Glucose [Mass/Vol] 130 mg/dL High 74-99 [facility] Comment on above: Order Comment: Gabe pope Type: BLOOD SPECIMEN Ordering Facility: [facility] Address: [address] [place] [address] Result Comment: The [place] Diabetes Association (ADA) provides guidance for cutoff [...] Standards of Medical Care in Diabetes 2016, [place] Diabetes Association. Diabetes Care. 2016.39(Suppl 1). Performed By: #### 2 4325-3, , #### [facility] CLIA [id number] [address] [place] [address] [place] Potassium [Moles/Vol] 4.5 mmol/L Normal 3.7-5.1 [facility] Comment on above: Order Comment: Gabe pope Type: BLOOD SPECIMEN Ordering Facility: [facility] Address: [address] [place] [address] Performed By: #### 2 4325-3, , #### [facility] CLIA [id number] [address] [place] [address] [place] [facility] Sodium [Moles/Vol] 139 mmol/L Normal 136-144 [facility] Comment on above: Order Comment: Gabe pope Type: BLOOD SPECIMEN Ordering Facility: [facility] Address: [address] [place], [place] [address] Performed By: #### 2 4325-3, , #### [facility] CLIA [id number] [address] [place] [address] [place] Urea nitrogen [Mass/Vol] 10 mg/dL Normal 9-24 [facility] Comment on above: Order Comment: Gabe pope Type: BLOOD SPECIMEN Ordering Facility: [facility] Address: [address] [place] [address] Performed By: #### 2 4325-3, , 39113-7 #### [facility] CLIA [id number] [address] [place] [address] [place] ECG COMPLETEon 02-01-2024 ECG COMPLETE Ventricular Rate : 5 3 BPM Atrial Rate : 53 BPM P-R Interval : 134 ms QRS Duration : 88 ms Q-T Interval : 402 ms QTC Calculation(Bazett) : 377 ms Calculated P [place] : 55 degrees Calculated R [place] : 61 degrees Calculated T [place] : 60 degrees SINUS BRADYCARDIA OTHERWISE NORMAL ECG NO PREVIOUS ECGS AVAILABLE Confirmed by MD JAUREGUI VINAYAK ([id number]) on 02/03/2024 10:59:13 PM NAME : ELIZABETH RODAS PID : [id number] : 1980 Gender : Male Race : ORD : [id number] Procedure Date : Feb 01 2024 11:17:23 Edit Date : Feb 03 2024 22:59:14 Diagnosis: SINUS BRADYCARDIA OTHERWISE NORMAL ECG NO PREVIOUS ECGS AVAILABLE Confirmed by MD JAUREGUI VINAYAK ([id number]) on 02/03/2024 10:59:13 PM Test Reason : Chest Pain Location : 191 : [facility] ED Overread By : MD JAUREGUI VINAYAK Edited By : MD JAUREGUI VINAYAK Referred By : , Acquired by : MADELIN TOLENTINO [facility] ED NOTEon 02-01-2024 ED NOTE HNO ID: [id number] Author: CHRIS PIERRE RN Service: Nursing Author [...] for worsening or life threatening symptoms. Normal [facility] ED NOTE HNO ID: [id number] Author: MAYTE PEREZ RN Service: ? Author [...] diaphoretic. EKG-sinus chioma. Will continue to monitor. [facility] ED PROV NOTEon 02-01-2024 ED PROV NOTE HNO ID: [id number] Author: CARRI ORTIZ MD Service: Emergency Medicine [...] Problems Mother Coronary Artery Disease Father first ME at 45; CABG 6-vessel at age 45 [...] no distens (more content not included)... Normal [facility] Hepatic function 2000 panelo n 02-01-2024 Albumin [Mass/Vol] 4.9 g/dL Normal 3.9-4.9 [facility] Comment on above: Order Comment: Speci men Type: BLOOD SPECIMEN Ordering Facility: [facility] Address: [address] [place] [address] Performed By: #### 2 4325-3, , 77930-2 #### [facility] CLIA [id number] [address] [place], [place] [address] [place] [address] [place] ALP [Catalytic activity/Vol] 70 U/L Normal 38-113 [facility] Comment on above: Order Comment: Speci men Type: BLOOD SPECIMEN Ordering Facility: [facility] Address: [address] [place] [address] Performed By: #### 2 4325-3, , 55297-2 #### [facility] CLIA [id number] [address] [place], [place] [address] [place] [address] [place] ALT With P-5'-P [Catalytic activity/Vol] 23 U/L Normal 10-54 [facility] Comment on above: Order Comment: Speci men Type: BLOOD SPECIMEN Ordering Facility: [facility] Address: [address] [place] [address] Performed By: #### 2 4325-3, , 69319-6 #### [facility] CLIA [id number] [address] [place] [address] [facility] AST With P-5'-P [Catalytic activity/Vol] 22 U/L Normal 14-40 [facility] Comment on above: Order Comment: Speci men Type: BLOOD SPECIMEN Ordering Facility: [facility] Address: [address] [place] [address] Performed By: #### 2 4325-3, , #### [facility] CLIA [id number] [address] [place] [address] [place] Bilirubin [Mass/Vol] 0.8 mg/dL Normal 0.2-1.3 [facility] Comment on above: Order Comment: Speci men Type: BLOOD SPECIMEN Ordering Facility: [facility] Address: [address] [place] [address] Performed By: #### 2 4325-3, , #### [facility] CLIA [id number] [address] [place] [address] [place] Bilirubin.direct [Mass/Vol] mg/dL Normal <0.2 [facility] Comment on above: Order Comment: Speci men Type: BLOOD SPECIMEN Ordering Facility: [facility] Address: [address] [place] [address] Performed By: #### 2 4325-3, , #### [facility] CLIA [id number] [address] [place] [address] [place] Protein [Mass/Vol] 7.9 g/dL Normal 6.3-8.0 [facility] Comment on above: Order Comment: Speci men Type: BLOOD SPECIMEN Ordering Facility: [facility] Address: [address] [place] [address] Performed By: #### 2 4325-3, , 01306-9 #### [facility] CLIA [id number] [address] [place] [address] [place] Magnesium SerPl-mCncon 01-31 Magnesium [Mass/Vol] 1.5 mg/dL Low 1.7-2.3 [facility] Comment on above: Order Comment: Speci men Type: BLOOD SPECIMEN Ordering Facility: [facility] Address: [address] [place] [address] Performed By: #### 2 4325-3, , 64778-4 #### [facility] CLIA [id number] [address] [place] [address] [place] XR CHEST 1V [...] cardiomediastinal silhouette. IMPRESSION: No acute radiographic abnormality. Surtass Analyst: RODRIGO Transcribe Date/Time: Feb 01 2024 12:19P Dictated by : MT ENGLISH MD This examination was interpreted and the report reviewed and electronically signed by: MT ENGLISH MD on Feb 01 2024 12:20PM EST [id number] Normal [facility] 12 Lead E[place] [facility] [place]-30-2024 12 Lead EKG performed by [address] [place] [address] 12 Lead EKG performed [place] [facility] 01/30/24 1520 MR#: [id number] Acct: [id number] Name: ELIZABETH RODAS Rep #: [id number] : 1980 43 From: Carlos Perez BUSINESS OFFICE MANAGER BUSINESS OFFICE MANAGER-C Attending Dr: ULICES AnnC Status: DEP AMB Ordering Dr: Carlos Perez BUSINESS OFFICE MANAGER BUSINESS OFFICE MANAGER-C Date: 01/30/24 Location: [facility] Sex: M C [place] [facility]12 Lead EKG performed [place] [facility] ECG Report Interpretation Si nus Bradycardia WITHIN NORMAL LIMITSElectronically signed on 02/04/2024 at 14:37 by Laureano Mos[employer] Version [id number] 02/04/24 1441 Date Carlos HERMAN CC: Dr. Monico Rios MD Date Dictated: 01/30/24 1520 Date Transcribed: 01/30/241519 Surtass Analyst: TEJINDER Signed Normal [facility] Cardiology Visit Reporton Cardiology Visit Report [facility] 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 Accompanied by: Is patient in pain?: No Allergies No Known Allergies Allergy (Verified 01/30/24 15:10) Medications ???Medication ???Instructions ???Recorded ???Confirmed ???Type coenzyme S65-kbnaqtx E 100 mg-100 1 cap PO DAILY 09/23/23 01/30/24 History unit capsule omega-3s 360 tj-mmi-cig-fish oil 1 cap PO QHS 09/23/23 01/30/24 [...] (Updated 01/30/24 @ 16:13 by Carlos Perez BUSINESS OFFICE MANAGER, BUSINESS OFFICE MANAGER-C) Anxiety Marijuana use Dietary restriction History of [...] spouse current occupational status: employed 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 Normal [facility] MR/BMS.BPon 01-29-2024 MR/BMS.[address], [address] [place] [address] OFFICE VISIT Date of Service: 01/29/24 MR#: [id number] Acct: [id number] Name: ELIZABETH ROADS Rep #: [id number] : 1980 Provider: BATSHEVA pérez Age/Sex: 43/M [place] [facility] [place] [facility] Status: Signed Intake Vital [...] mg PO QHS 11/12/22 01/29/24 History coenzyme M82-etbsvzw E 100 mg-100 1 cap PO DAILY 09/23/23 01/29/24 History unit capsule omega-3s 360 lj-mnq-vqo-fish oil 1 cap PO QHS 09/23/23 01/29/24 [...] spouse 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 Normal [facility] Absolute lymphocyte countOrd ered By: Monico Rios on 08-21-2023 Lymphocytes Auto (Unsp spec) [#/Vol] 1.96 10*3/uL 0.83-4.51 [facility] Automated lymphocyte count a s percentage of total leukocytesOrdered By: Monico Rios on 08-21-2023 Lymphocytes/100 WBC Auto (Unsp spec) 23.6 % 19-41 [facility] Basophil percentageOrdered B y: Monico Rios on 08-21-2023 Basophils/100 WBC (Bld) 0.6 % 0-1 [facility] Bilirubin [Mass/Vol] 0.80 mg/dL 0.20-1.00 [facility] Comment on above: For patients on eltr ombopag therapy, use of Dimension [place] TBIL is not recommended. Chloride [Moles/Vol] 107 mmol/L 98-107 [facility] Cholesterol [Mass/Vol] 213 mg/dL <200 [facility] Comment on above: <200 mg/dL Desirable 200-240 mg/dL Borderline >240 mg/dL High Risk Eosinophils/100 WBC (Bld) 0.5 % 0-5 [facility] Glucose [Mass/Vol] 95 mg/dL 74-106 [facility] Hemoglobin (Bld) [Mass/Vol] 14.0 g/dL 13.0-16.5 [facility] Monocytes/100 WBC (Bld) 8.9 % 0-10 [facility] Neutrophils (Bld) [#/Vol] 5.5 10*3/uL 2.0-7.7 [facility] Neutrophils/100 WBC (Bld) 66.2 % 47-70 [facility] Potassium [Moles/Vol] 4.2 mmol/L 3.5-5.1 [facility] Protein [Mass/Vol] 7.7 g/dL 6.4-8.2 [facility] Sodium [Moles/Vol] 138 mmol/L 136-145 [facility] Triglyceride [Mass/Vol] 138 mg/dL <199 [facility] Comment on above: The drugs N-Acetylcy steine and Metamizole may falsely depress this assay.Serum Triglycerides Reference Interval Normal <150 mg/dL Borderline high 150 - 199 mg/dL High 200 - 499 mg/dL Very High > or = 500 mg/dL WBC (Bld) [#/Vol] 8.3 10*3/uL 4.4-11.0 [facility] Determination of erythrocyte mean corpuscular volume (MCV)Ordered By: Monico Rios on 08-21-2023 MCV (RBC) [Entitic vol] 97.5 fL 80-94 [facility] Erythrocyte distribution wid th ratioOrdered By: Monico Rios on 08-21-2023 Erythrocyte distribution width (RBC) [Ratio] 12.6 % 11.6-14.6 [facility] Erythrocyte distribution wid th standard deviationOrdered By: Monico Rios on 08-21-2023 Erythrocyte distribution width (RBC) [Entitic vol] 45.0 fL 35.1-43.9 [facility] Hematocrit Auto (Bld) [Volum e fraction]Ordered By: Monico Rios on 08-21-2023 Hematocrit (Bld) [Volume fraction] 42.9 % 40-54 [facility] Immature granulocytes/100 WB C Auto (Bld)Ordered By: Monicojohnson Rios on 08-21-2023 Immature granulocytes/100 WBC (Bld) 0.200 % 0.0-0.9 [facility] Comment on above: IG% - Immature Granu locytes (promyelocytes, myelocytes and metamyelocytes) > 1% indicates that a LEFT SHIFT is Present. Laboratory - Chemistry and C hemistry - challengeOrdered By: Monico Rios on 08-21-2023 Albumin/Globulin [Mass ratio] 1.0 {ratio} 0.9-2.4 [facility] ALP [Catalytic activity/Vol] 67 U/L 45-117 [facility] ALT [Catalytic activity/Vol] 34 U/L 16-61 [facility] Cholesterol in HDL [Mass/Vol] 63 mg/dL >40 [facility] Comment on above: The drugs N-Acetylcy steine and Metamizole may falsely depress this assay. Reference Range HDL <40 mg/dL Low HDL Cholesterol HDL >or= 60 mg/dL High HDL Cholesterol Cholesterol in LDL [Mass/Vol] 122 mg/dL 0-130 [facility] CO2 [Moles/Vol] 27.0 mmol/L 21.0-32.0 [facility] Globulin (S) [Mass/Vol] 3.8 g/dL 2.2-4.2 [facility] Urea nitrogen/Creatinine [Mass ratio] 12.4 mg/mg 10-20 [facility] Laboratory - Hematology and Cell countsOrdered By: Monico Rios on 08-21-2023 MCH (RBC) [Entitic mass] 31.8 pg 27.0-32.0 [facility] MCHC (RBC) [Mass/Vol] 32.6 g/dL 32-36 [facility] Nucleated RBC/100 WBC (Bld) [Ratio] 0 % 0-5 [facility] Platelet mean volume (Bld) [Entitic vol] 10.4 fL 6.2-12.0 [facility] Platelets (Bld) [#/Vol] 322 10*3/uL 150-450 [facility] No Panel InformationOrdered By: Monico Rios on 08-21-2023 Estimated GFR (MDRD) Amer 109 mL/min >60 [facility] Comment on above: GFR Calc Estimated GFR (MDRD) Non-Af Amer 90 mL/min >60 [facility] Comment on above: Non- GFR Calc Vitamin D 25-Hydroxy 31.6 ng/mL [facility] Comment on above: Vitamin D 25(OH) Sta tus Range Deficiency <20 ng/mL (50nmol/L) Insufficiency 20 - 30 ng/mL (50 - 75 nmol/L) Sufficiency 30 - 100 ng/mL (75 - 250 nmol/L) Toxicity >100 ng/mL (>250 nmol/L) VLDL Cholesterol 28 mg/dL 5-40 [facility] RBC Auto (Bld) [#/Vol]Ordere d By: Monico Rios on 08-21-2023 RBC (Bld) [#/Vol] 4.40 10*6/uL 4.6-6.2 [facility] Serum or plasma calcium dmitry urement (mass/volume)Ordered By: Monico Rios on 08-21-2023 Calcium [Mass/Vol] 9.1 mg/dL 8.5-10.1 [facility] Serum or plasma creatinine m easurement (mass/volume)Ordered By: Monico Rios on 08-21-2023 Creatinine [Mass/Vol] 0.97 mg/dL 0.70-1.30 [facility] Comment on above: The validity of the calculated GFR & GFRAA in patients over 70 years has not been determined. Clinical correlation is essential. Serum or plasma thyroid stim ulating hormone (TSH) measurement (units/volume)Ordered By: Monico Rios on 08-21-2023 TSH Qn 1.73 uIU/mL 0.358-3.74 [facility] Serum or plasma urea nitroge n measurement (mass/volume)Ordered By: Monico Rios on 08-21-2023 Urea nitrogen [Mass/Vol] 12 mg/dL 7-18 [facility] Thin prep Papanicolaou smear with manual screeningOrdered By: Monico Rios on 08-21-2023 Thin prep Papanicolaou smear with manual screening 3.9 g/dL 3.2-5.0 [facility] Thin prep Papanicolaou smear with manual screening 23 U/L 15-37 [facility] Thin prep Papanicolaou smear with manual screening 4 5-15 [facility] Basophil percentageOrdered B y: Monico Rios on 02-16-2023 Bilirubin [Mass/Vol] 0.70 mg/dL 0.20-1.00 [facility] Comment on above: For patients on eltr ombopag therapy, use of Dimension Coleridge TBIL is not recommended. Chloride [Moles/Vol] 106 mmol/L 98-107 [facility] Cholesterol [Mass/Vol] 159 mg/dL <200 [facility] Comment on above: <200 mg/dL Desirable 200-240 mg/dL Borderline >240 mg/dL High Risk Glucose [Mass/Vol] 105 mg/dL 74-106 [facility] Comment on above: Fasting Glucose resu lt from 100 to 125 mg/dL suggests IMPAIRED HOMEOSTASIS per A.D.A. criteria. Potassium [Moles/Vol] 4.6 mmol/L 3.5-5.1 [facility] Protein [Mass/Vol] 7.2 g/dL 6.4-8.2 [facility] Sodium [Moles/Vol] 139 mmol/L 136-145 [facility] Triglyceride [Mass/Vol] 100 mg/dL <199 [facility] Comment on above: The drugs N-Acetylcy steine and Metamizole may falsely depress this assay.Serum Triglycerides Reference Interval Normal <150 mg/dL Borderline high 150 - 199 mg/dL High 200 - 499 mg/dL Very High > or = 500 mg/dL Laboratory - Chemistry and C hemistry - challengeOrdered By: Monico Riso on 02-16-2023 ALP [Catalytic activity/Vol] 70 U/L 45-117 [facility] ALT [Catalytic activity/Vol] 43 U/L 16-61 [facility] CO2 [Moles/Vol] 29.0 mmol/L 21.0-32.0 [facility] Globulin (S) [Mass/Vol] 3.4 g/dL 2.2-4.2 [facility] Urea nitrogen/Creatinine [Mass ratio] 12.2 mg/mg 10-20 [facility] No Panel InformationOrdered By: Monico Rios on 02-16-2023 Estimated GFR (MDRD) Amer 118 mL/min >60 [facility] Comment on above: GFR Calc Estimated GFR (MDRD) Non-Af Amer 97 mL/min >60 [facility] Comment on above: Non- GFR Calc Serum or plasma albumin dmitry urement (mass/volume)Ordered By: Monico Rios on 02-16-2023 Albumin [Mass/Vol] 3.8 g/dL 3.2-5.0 [facility] Serum or plasma albumin/glob ulin mass ratioOrdered By: Monico Rios on 02-16-2023 Albumin/Globulin [Mass ratio] 1.1 {ratio} 0.9-2.4 [facility] Serum or plasma calcium dmitry urement (mass/volume)Ordered By: Monico Rios on 02-16-2023 Calcium [Mass/Vol] 9.3 mg/dL 8.5-10.1 [facility] Serum or plasma cholesterol in HDL measurement (mass/volume)Ordered By: Monico Rios on 02-16-2023 Cholesterol in HDL [Mass/Vol] 58 mg/dL >40 [facility] Comment on above: The drugs N-Acetylcy steine and Metamizole may falsely depress this assay. Reference Range HDL <40 mg/dL Low HDL Cholesterol HDL >or= 60 mg/dL High HDL Cholesterol Serum or plasma cholesterol in VLDL measurement (mass/volume)Ordered By: Monico Rios on 02-16-2023 Cholesterol in VLDL [Mass/Vol] 20 mg/dL 5-40 [facility] Serum or plasma creatinine m easurement (mass/volume)Ordered By: Monico Rios on 02-16-2023 Creatinine [Mass/Vol] 0.90 mg/dL 0.70-1.30 [facility] Comment on above: The validity of the calculated GFR & GFRAA in patients over 70 years has not been determined. Clinical correlation is essential. Serum or plasma low density lipoprotein (LDL) cholesterol measurement (mass/volume)Ordered By: Monico Rios on 02-16-2023 Cholesterol in LDL [Mass/Vol] 81 mg/dL 0-130 [facility] Serum or plasma urea nitroge n measurement (mass/volume)Ordered By: Monico Rios on 02-16-2023 Urea nitrogen [Mass/Vol] 11 mg/dL 7-18 [facility] Thin prep Papanicolaou smear with manual screeningOrdered By: Monico Rios on 02-16-2023 Thin prep Papanicolaou smear with manual screening 23 U/L 15-37 [facility] Thin prep Papanicolaou smear with manual screening 4 5-15 [facility] CT ABD/PEL W IVCONon 023 [facility] Absolute lymphocyte countOrd ered By: Monico Rios on 11-03-2022 Lymphocytes Auto (Unsp spec) [#/Vol] 2.43 10*3/uL 0.83-4.51 [facility] Basophil percentageOrdered B y: Monico Rios on 11-03-2022 Basophils/100 WBC (Bld) 0.7 % 0-1 [facility] Bilirubin [Mass/Vol] 0.70 mg/dL 0.20-1.00 [facility] Comment on above: For patients on eltr ombopag therapy, use of Dimension Coleridge TBIL is not recommended. Chloride [Moles/Vol] 105 mmol/L 98-107 [facility] Cholesterol [Mass/Vol] 257 mg/dL <200 [facility] Comment on above: <200 mg/dL Desirable 200-240 mg/dL Borderline >240 mg/dL High Risk Eosinophils/100 WBC (Bld) 1.8 % 0-5 [facility] Glucose [Mass/Vol] 104 mg/dL 74-106 [facility] Comment on above: Fasting Glucose resu lt from 100 to 125 mg/dL suggests IMPAIRED HOMEOSTASIS per A.D.A. criteria. Neutrophils (Bld) [#/Vol] 5.8 10*3/uL 2.0-7.7 [facility] Neutrophils/100 WBC (Bld) 61.0 % 47-70 [facility] Potassium [Moles/Vol] 4.8 mmol/L 3.5-5.1 [facility] Protein [Mass/Vol] 7.6 g/dL 6.4-8.2 [facility] Sodium [Moles/Vol] 137 mmol/L 136-145 [facility] Triglyceride [Mass/Vol] 177 mg/dL <199 [facility] Comment on above: The drugs N-Acetylcy steine and Metamizole may falsely depress this assay.Serum Triglycerides Reference Interval Normal <150 mg/dL Borderline high 150 - 199 mg/dL High 200 - 499 mg/dL Very High > or = 500 mg/dL WBC (Bld) [#/Vol] 9.5 10*3/uL 4.4-11.0 [facility] Blood erythrocytes count (nu mber/volume)Ordered By: Monico Rios on 11-03-2022 RBC (Bld) [#/Vol] 4.89 10*6/uL 4.6-6.2 [facility] Blood hemoglobin measurement (mass/volume)Ordered By: Monico Rios on 11-03-2022 Hemoglobin (Bld) [Mass/Vol] 15.6 g/dL 13.0-16.5 [facility] Blood lymphocytes/100 leukoc ytesOrdered By: Monico Rios on 11-03-2022 Lymphocytes/100 WBC (Bld) 25.7 % 19-41 [facility] Blood monocytes/100 leukocyt esOrdered By: Monico Rios on 11-03-2022 Monocytes/100 WBC (Bld) 10.5 % 0-10 [facility] Blood platelet mean volumeOr dered By: Monico Rios on 11-03-2022 Platelet mean volume (Bld) [Entitic vol] 9.9 fL 6.2-12.0 [facility] Determination of erythrocyte mean corpuscular volume (MCV)Ordered By: Monico Rios on 11-03-2022 MCV (RBC) [Entitic vol] 98.6 fL 80-94 [facility] Hematocrit Auto (Bld) [Volum e fraction]Ordered By: Monico Rios on 11-03-2022 Hematocrit (Bld) [Volume fraction] 48.2 % 40-54 [facility] Laboratory - Chemistry and C hemistry - challengeOrdered By: Monico Rios on 11-03-2022 ALP [Catalytic activity/Vol] 65 U/L 45-117 [facility] ALT [Catalytic activity/Vol] 37 U/L 16-61 [facility] CO2 [Moles/Vol] 28.0 mmol/L 21.0-32.0 [facility] Globulin (S) [Mass/Vol] 3.9 g/dL 2.2-4.2 [facility] Urea nitrogen/Creatinine [Mass ratio] 14.3 mg/mg 10-20 [facility] Laboratory - Hematology and Cell countsOrdered By: Monico Rios on 11-03-2022 Erythrocyte distribution width (RBC) [Entitic vol] 45.1 fL 35.1-43.9 [facility] Erythrocyte distribution width (RBC) [Ratio] 12.4 % 11.6-14.6 [facility] Immature granulocytes/100 WBC (Bld) 0.300 % 0.0-0.9 [facility] Comment on above: IG% - Immature Granu locytes (promyelocytes, myelocytes and metamyelocytes) > 1% indicates that a LEFT SHIFT is Present. MCH (RBC) [Entitic mass] 31.9 pg 27.0-32.0 [facility] Nucleated RBC/100 WBC (Bld) [Ratio] 0 % 0-5 [facility] MCHC Auto (RBC) [Mass/Vol]Or dered By: Monico Rios on 11-03-2022 MCHC (RBC) [Mass/Vol] 32.4 g/dL 32-36 [facility] No Panel InformationOrdered By: Monico Rios on 11-03-2022 Endomysial IgA Antibody Negative Negative [facility] Estimated GFR (MDRD) Amer 107 mL/min >60 [facility] Comment on above: GFR Calc Estimated GFR (MDRD) Non-Af Amer 89 mL/min >60 [facility] Comment on above: Non- GFR Calc Thyroid Stimulating Hormone (TSH) 2.25 uIU/mL 0.358-3.74 [facility] Vitamin D 25-Hydroxy 36.0 ng/mL [facility] Comment on above: Vitamin D 25(OH) Sta tus Range Deficiency <20 ng/mL (50nmol/L) Insufficiency 20 - 30 ng/mL (50 - 75 nmol/L) Sufficiency 30 - 100 ng/mL (75 - 250 nmol/L) Toxicity >100 ng/mL (>250 nmol/L) Platelets bldOrdered By: Erickson Rios on 11-03-2022 Platelets (Bld) [#/Vol] 310 10*3/uL 150-450 [facility] Serum IgA measurement (units /volume)Ordered By: Monico Rios on 11-03-2022 IgA Qn (S) 283 mg/dL 90-386 [facility] Comment on above: Performed at: [place] [id number] Director: Gilmer Zaragoza PhD, Phone: [phone] Serum or plasma albumin dmitry urement (mass/volume)Ordered By: Monico Rios on 11-03-2022 Albumin [Mass/Vol] 3.7 g/dL 3.2-5.0 [facility] Serum or plasma albumin/glob ulin mass ratioOrdered By: Monico Rios on 11-03-2022 Albumin/Globulin [Mass ratio] 0.9 {ratio} 0.9-2.4 [facility] Serum or plasma calcium dmitry urement (mass/volume)Ordered By: Monico Rios on 11-03-2022 Calcium [Mass/Vol] 9.3 mg/dL 8.5-10.1 [facility] Serum or plasma cholesterol in HDL measurement (mass/volume)Ordered By: Monico Rios on 11-03-2022 Cholesterol in HDL [Mass/Vol] 59 mg/dL >40 [facility] Comment on above: The drugs N-Acetylcy steine and Metamizole may falsely depress this assay. Reference Range HDL <40 mg/dL Low HDL Cholesterol HDL >or= 60 mg/dL High HDL Cholesterol Serum or plasma cholesterol in VLDL measurement (mass/volume)Ordered By: Monico Rios on 11-03-2022 Cholesterol in VLDL [Mass/Vol] 35 mg/dL 5-40 [facility] Serum or plasma creatinine m easurement (mass/volume)Ordered By: Monico Rios on 11-03-2022 Creatinine [Mass/Vol] 0.98 mg/dL 0.70-1.30 [facility] Comment on above: The validity of the calculated GFR & GFRAA in patients over 70 years has not been determined. Clinical correlation is essential. Serum or plasma low density lipoprotein (LDL) cholesterol measurement (mass/volume)Ordered By: Monico Rios on 11-03-2022 Cholesterol in LDL [Mass/Vol] 163 mg/dL 0-130 [facility] Serum or plasma urea nitroge n measurement (mass/volume)Ordered By: Monico Rios on 11-03-2022 Urea nitrogen [Mass/Vol] 14 mg/dL 7-18 [facility] Serum tissue transglutaminas e IgA antibody assay (units/volume)Ordered By: Monico Riso on 11-03-2022 tTG IgA Qn (S) <2 U/mL 0-3 [facility] Comment on above: Negative 0 - 3 Weak Positive 4 - 10 Positive >10 Tissue Transglutaminase (tTG) has been identified as the endomysial antigen. Studies have demonstr- ated that endomysial IgA antibodies have over 99% specificity for gluten sensitive enteropathy. Thin prep Papanicolaou smear with manual screeningOrdered By: Monico Rios on 11-03-2022 Thin prep Papanicolaou smear with manual screening 22 U/L 15-37 [facility] Thin prep Papanicolaou smear with manual screening 4 5-15 [facility] Vital Signs Date Time Vital Sign Value Performing Clinician Faci noble 08-21-2023 08:03-0400 Body height 182.[address] Monico iRos Work Phone: [facility] 08-21-2023 08:03-0400 Body mass index (BMI) [Ratio] 22.5 kg/m2 Dr. Monico Rios Work Phone: [facility] 08-21-2023 08:03-0400 Body temperature 97.2 [degF] Dr. Monico Rios Work Phone: [facility] 08-21-2023 08:03-0400 Body weight 75.[address] Monico Rios Work Phone: [facility] 08-21-2023 08:03-0400 Diastolic blood pressure 86 mm[Hg] Dr. Monico Rios Work Phone: [facility] 08-21-2023 08:03-0400 Heart rate 86 /min Dr. Monico Rios Work Phone: [facility] 08-21-2023 08:03-0400 Respiratory rate 16 /min Dr. Monico Rios Work Phone: [facility] 08-21-2023 08:03-0400 SaO2% (BldA) [Mass fraction] 99 % Dr. Monico Rios Work Phone: [facility] 08-21-2023 08:03-0400 Systolic blood pressure 140 mm[Hg] Dr. Monico Rios Work Phone: [facility] 11-12-2022 22:54-0400 Diastolic blood pressure 86 mm[Hg] No Primary Care Physician [facility] 11-12-2022 22:54-0400 Systolic blood pressure 132 mm[Hg] No Primary Care Physician [facility] 11-12-2022 15:39-0400 Body height 182.88 cm No Primary Care Physician [facility] 11-12-2022 15:39-0400 Body mass index (BMI) [Ratio] 24.3 kg/m2 No Primary Care Physician [facility] 11-12-2022 15:39-0400 Body temperature 99.8 [degF] No Primary Care Physician [facility] 11-12-2022 15:39-0400 Body weight 81.19 kg No Primary Care Physician [facility] 11-12-2022 15:39-0400 Heart rate 89 /min No Primary Care Physician [facility] 11-12-2022 15:39-0400 Respiratory rate 16 /min No Primary Care Physician [facility] 11-12-2022 15:39-0400 SaO2% (BldA) [Mass fraction] 98 % No Primary Care Physician [facility] 10-29-2022 15:18-0400 Diastolic blood pressure 90 mm[Hg] No Primary Care Physician [facility] 10-29-2022 15:18-0400 Systolic blood pressure 152 mm[Hg] No Primary Care Physician [facility] 10-29-2022 14:08-0400 Body height 182.88 cm No Primary Care Physician [facility] 10-29-2022 14:08-0400 Body mass index (BMI) [Ratio] 23.8 kg/m2 No Primary Care Physician [facility] 10-29-2022 14:08-0400 Body temperature 98.1 [degF] No Primary Care Physician [facility] 10-29-2022 14:08-0400 Body weight 79.83 kg No Primary Care Physician [facility] 10-29-2022 14:08-0400 Heart rate 80 /min No Primary Care Physician [facility] 10-29-2022 14:08-0400 Respiratory rate 14 /min No Primary Care Physician [facility] 10-29-2022 14:08-0400 SaO2% (BldA) [Mass fraction] 98 % No Primary Care Physician [facility] Encounters Encounter Date Encounter Type Care Provider Facility Start: 01-06-2025 End: 01-06-2025 ambulatory Marika Hawk Facility:[facility] Start: 11-23-2024 End: 11-23-2024 ambulatory Monico Gabriel Facility:[facility] Start: 10-06-2024 End: 10-06-2024 ambulatory Monico Raywick Facility:[facility] Start: 10-02-2024 End: 10-02-2024 ambulatory Monico Gabriel Facility:[facility] Start: 07-07-2024 End: 07-07-2024 ambulatory Marika Hawk Facility:[facility] Start: 06-22-2024 End: 06-22-2024 ambulatory MONICO G GABRIEL Facility:[facility] Start: 06-22-2024 End: 06-22-2024 Subsequent hospital visit by physician [facility] Work Phone: Radiology Start: 06-02-2024 End: 06-02-2024 ambulatory Monico Raywick Facility:[facility] Start: 06-02-2024 End: 06-02-2024 ambulatory Monico Gabriel Facility:[facility] Start: 05-12-2024 End: 05-12-2024 ambulatory [facility] Start: 03-11-2024 End: 03[facility] Start: 03-05-2024 End: 03-05-2024 ambulatory Monico Gabriel Facility:[facility] Start: 02-01-2024 End: 02-01-2024 Emergency department patient visit CARRI ORTIZ Facility:[facility] Start: 01-30-2024 End: 01-30-2024 ambulatory Monico Gabriel Facility:[facility] Start: 01-29-2024 End: 01-29-2024 ambulatory [facility] Facility:[facility] Start: 08-24-[address] Monico Rios Work Phone: [facility] Work Phone: Start: 08-21-2023 End: 08-21-[address] Monico Rios Work Phone: [facility] Work Phone: Start: 08-21-2023 End: 08-21-[address] Monico Rios Work Phone: [facility] Work Phone: Start: 02-16-2023 End: 02-16-2023 ambulatory No Primary Care Physician [facility] Work Phone: Start: 02-16-2023 End: 02-16-2023 Patient encounter procedure No Primary Care Physician [facility] Work Phone: Start: 11-12-2022 End: 11-12-2022 Patient encounter procedure No Primary Care Physician [facility] Work Phone: Start: 11-07-2022 End: 11-07-2022 Subsequent hospital visit by physician [facility] Work Phone: Cat Scan Comment on above: Unspecified abdomina l hernia without obstruction or gangrene [K46.9] Start: 11-03-2022 End: 11-03-2022 ambulatory No Primary Care Physician [facility] Work Phone: Start: 11-03-2022 End: 11-03-2022 Patient encounter procedure No Primary Care Physician [facility] Work Phone: Start: 10-29-2022 End: 10-29-2022 Patient encounter procedure No Primary Care Physician [facility] Work Phone: Procedures Date Procedure Procedure Detail Performing Clinician Start: 11-07-2022 Ct abdomen & pelvis w/contrast material Monico Rios MD Work Phone: Start: 08-26-2018 Lipid 1996 panel - S l[place] or Plasma Ct ([facility]) Work Phone: Plan of Treatment Date Care Activity Detail Author Start: 06-20-2030 Urine microalbumin profile DTaP,Tdap,Td Vaccine (3 - Td or Tdap) [facility] Start: 01-12-2024 Covid-19 Vaccine ( season) Covid-19 Vaccine ( season) [facility] Start: 01-12-2024 Influenza vaccination Influenza Vaccine (#1) [facility] Start: 08-27-2023 Lipid 1996 panel - Serum or Plasma Lipid Screening [facility] Start: 08-27-2023 Lipid panel Lipid Screening [facility] Start: 08-21-2023 Patient referral [facility] Work Phone: Start: 08-21-2023 Evaluation of diagnostic study results [facility] Start: 01-11-2023 Influenza vaccination Influenza Vaccine (#1) [facility] Start: 11-12-2022 Patient referral [facility] Work Phone: Start: 05-13-2022 Depression Assessment Depression Assessment [facility] Start: 08-12-1998 Hepatitis B Vaccine (1 of 3 - 19+ 3-dose series) Hepatitis B Vaccine (1 of 3 - 19+ 3-dose series) [facility] Start: 08-12-1997 Anxiety Screening Anxiety Screening [facility] Start: 08-12-1997 Depression Screening Depression Screening [facility] Start: 08-12-1997 Hepatitis C Screening Hepatitis C Screening [facility] Start: 08-12-1997 Hepatitis C screening Hepatitis C Screening [facility] Start: 08-12-1997 HIV Screening HIV Screening [facility] Start: 08-12-1997 HIV screening HIV Screening [facility] Start: 08-12-1985 Pneumococcal vaccination Pneumococcal Vaccine (1 - PCV) [facility] Start: 02-12-1980 Covid-19 Vaccine (#1) Covid-19 Vaccine (#1) [facility] Start: 1979 Hepatitis B Vaccine (1 of 3 - 3-dose series) Hepatitis B Vaccine (1 of 3 - 3-dose series) [facility] CT Abdomen and Pelvi s W contrast IV [facility] Patient referral [facility] Work Phone: Immunizations Immunization Date Immunization Notes Care Provider [facility] 06-20-2020 tetanus toxoid, redu sarah diphtheria toxoid, and acellular pertussis vaccine, adsorbed No Primary Care Physician [facility] 08-18-2009 tetanus toxoid, redu sarah diphtheria toxoid, and acellular pertussis vaccine, adsorbed Ct ([facility]) Work Phone: [facility] Payers Date Payer Category Payer Self-pay [id number] 2022 [employer] [facility] [facility] [id number] 2022 Unknown [employer] PPO [id number] 2022-Present [phone] [id number] [place] [address] PPO [id number] 2022 Unknown [id number] Unknown [facility] [id number] Unknown [id number] .462 Unknown [id number] .462 Unknown [id number] [id number] .462 Unknown [id number] [id number] .462 Unknown [id number] 2.16.840.1.113441.3.579.2 .462 Unknown [id number] [id number] .462 Unknown [id number] 2.16.840.1.878316.3.579.2 .462 Unknown [id number] 2.16.840.1.870180.3.579.2 .462 Unknown [id number] 2.16.840.1.869078.3.579.2 .462 Unknown [id number] 2.16.840.1.889658.3.579.2 .462 Unknown [id number] [id number] .462 Unknown [id number] .462 Social History Date Type Detail Facility Start: 10-29-2022 End: 08-21-2023 Tobacco smoking status NHIS Unknown if ever smoked [facility] Start: 1980 Sex Assigned At Male [facility] Start: 06-07-2014 [facility] of tobacco use Cigarette Smoker [facility] Start: 06-07-2014 End: 11-07-2022 Cigarettes smoked current (pack per day) - Reported 1.5 [facility] Start: 06-07-2014 End: 02-01-2024 Tobacco use and exposure Former smokeless tobacco user [facility] End: 06-07-2012 History of tobacco use Chews Tobacco [facility] Start: 07-07-2019 Alcohol intake Current drinke r of alcohol (finding) [facility] Start: 07-07-2019 End: 11-07-2022 Tobacco use panel [facility] Adult Depression Screening Assessment 4 [facility] Start: 1980 Sex Assigned At Not on file [facility] Start: 02-01-2024 [facility] History of tobacco use Current smoker [facility] Start: 02-01-2024 Alcoholic beverage intake Ex-drinker (finding) [facility] Start: 02-01-2024 Alcohol Comment Occasionally, enough to get drunk; 1-2 x/month, with . quit drinking 10/2023 [facility] Functional Status Date Assessment Result Facility 09-03-2014 Are you deaf, or do you have serious difficulty hearing No 09/03/2014 1:01 PM Joanna Jarrett RN No [facility] 09-03-2014 Are you blind, or do you have serious difficulty seeing, even when wearing glasses No 09/03/2014 1:01 PM Joanna Jarrett RN No [facility] 09-03-2014 Do you have serious difficulty walking or climbing stairs No 09/03/2014 1:01 PM Joanna Jarrett RN No [facility] 09-03-2014 Do you have difficul ty dressing or bathing No 09/03/2014 1:01 PM Joanna Jarrett RN No [facility] 09-03-2014 Because of a physica l, mental, or emotional condition, do you have difficulty doing errands alone such as visiting a physician's office or shopping No 09/03/2014 1:01 PM EDT Joanna Simmons RN No [facility] Mental Status Date Assessment Result Facility 09-03-2014 Because of a physica l, mental, or emotional condition, do you have serious difficulty concentrating, remembering, or making decisions No 09/03/2014 1:01 PM EDT oJanna Simmons RN No [facility] History of Present illness Narrative 06-22-2024 Alicia [...] PATIENT PRESENTS WITH AN IMPLANTABLE OR ATTACHED PROGRAM AIDE GROUP WORK: No RADIOLOGY DEPARTMENT: Ultrasound PERIPHERAL IV DATA: Not applicable SIGNED BY: Alicia Cano RDMS June 22, 2024 3:54 PM documented in this encounter [facility] Progress note 06-22-2024 Note Date & Type Note Facility 06-22-2024 Note HNO ID: [id number] Author: ALICIA CANO RDMS Service: ? Author Type: Cosmetology Teacher Type: Progress Notes Filed: 06/22/2024 15:55 Note [...] PATIENT PRESENTS WITH AN IMPLANTABLE OR ATTACHED PROGRAM AIDE GROUP WORK: No RADIOLOGY DEPARTMENT: Ultrasound PERIPHERAL IV DATA: Not applicable SIGNED BY: Alicia Cano RDMS June 22, 2024 3:54 PM [facility] History of Present illness Narrative 11-07-2022 [...] TIME: 3:14 PM documented in this encounter [facility] Chief complaint+Reason for visit Narrative Note Date & Type Note Facility Chief complaint+Reason for visit Narrative Reason for Visit Essential hypertensi on COVID-19 vaccination declined Moderate major depression Screening for cardiovascular condition Establishing care with new doctor, encounter for Moderate anxiety Ventral hernia Chronic abdominal pain [facility] Work Phone: Evaluation note Note Date & Type Note Facility Evaluation note Diagnosis Onset Date Essential hypertension acute COVID-19 vaccination declined noneactive Moderate major depression no neactive Screening for cardiovascular condition noneactive Establishing care with new d octor, encounter for noneactive Moderate anxiety noneactive Ventral hernia noneactive Chronic abdominal pain nonea [facility] Work Phone: Evaluation note Note Date & Type Note Facility Evaluation note Diagnosis Onset Date Essential hypertension acute COVID-19 vaccination declined noneactive Moderate major depression no neactive Screening for cardiovascular condition noneactive Establishing care with new d octor, encounter for noneactive Moderate anxiety noneactive Ventral hernia noneactive [facility] pain [facility] Essential hypertension acute Mixed hyperlipidemia acute Moderate major depression no neactive Moderate anxiety noneactive Ventral hernia noneactive Chronic abdominal pain nonea [facility] Work Phone: Evaluation note Note Date & Type Note Facility Evaluation note Diagnosis Onset Date Essential hypertension acute Mixed hyperlipidemia acute EtOH dependence noneactive Moderate major depression no neactive Palpitations noneactive Moderate anxiety noneactive Ventral hernia noneactive Chronic abdominal pain nonea [facility] Work Phone: Family History No Family History Records Found Relationship Condition Age at Onset Recorded Date/T madhuri father Alcoholism Unknown Cardiac disease Unknown Hypertension Unknown grandfather Cardiac disease Unknown grandmother Alzheimer's disease Unknown Advance Directives No Advanced Directives Records Found Advance Directive Response Recorded Date/ Time Living Will No August 04, 2018 9:23am Power of Electronic Organ Technician No August 04 9:23am Chief Complaint and [...] Primary Care Provider, Attendi ng Provider Active 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 Monico Rios MD Primary Care Provider, Attendi ng Provider Active Petroleum Engineer Relationship Specialty Start Date End Date Monico Rios MD [address] [place], [place] [address] PCP - General Internal Medicine 02/01/24 Goals [...] or prosecute any alcohol or drug abuse patient.[facility] the event this information is protected by the Federal Confidentiality of Alcohol and Drug Abuse Patient Records regulations: The Federal rules restrict any use of the information to criminally investigate or prosecute any alcohol or drug abuse patient.[facility] Reason for Visit (unrecogniz ed section and content) Reason Comments Radiology CT Specialty Diagnoses / Procedures Referred By Janet awan Referred To Contact Radiology / RADIO CT SCAN [facility] Diagnoses K46. 9 Unspecified abdominal hernia without obstruction or gangrene. - Dr. Monico Rios Procedures CT WWO ABD1 400 Monico Rios MD NO FORWARDING ADDRESS Radio Ct Scan [facility] [address] [place] [address] Referral ID Status Reason Start Date Expiration Date Visits Re quested Visits Authorized [id number] Closed 10/29/2022 02/05/2023 1 1 Reason Comments Radiology [place] (unrecognized sect ion and content) No Status Records FoundNo Status Records FoundNo Status Records Found INFORMATION SOURCE (unrecogn ized section and content) DATE CREATED AUTHOR 02/05/2024 [facility] DATE CREATED AUTHOR AUTHOR'S ORGANIZ ATION 06/24/2024 [facility] DATE CREATED AUTHOR AUTHOR'S ORGANIZ ATION 01/07/2025 [facility] FOR RECORDS PERTAINING TO PATIENTS WHO ARE [...] BE BASED ON THE PRIMARY CLINICAL RECORDS. [facility] [employer] [facility]. provides no warranty or guarantee of the accuracy or completeness of information in this document.
[2025-04-24 08:26] LABS: Cholesterol 250 mg/dL (<=200); Low Density Lipoprotein Calc. 133 mg/dL; Triglycerides 401 mg/dL; Very Low Density Lipoprotein 80 mg/dL (5-40); cholesterol:hdl ratio screen 5.58
== END | disposition home or self-care (01) ==
LOC: LAB 07:02
PROVIDERS: PCP Internal Medicine; Referring Provider Nurse Practitioner Family; Visit Provider Nurse Practitioner Family
DX: I10 Essential (primary) hypertension (principal); E78.2 Mixed hyperlipidemia; F10.10 Alcohol abuse, uncomplicated
CPT/HCPCS: 36415; 80061; 83036